=== PATIENT | male | born 1935 | race Caucasian/White ===

== ENCOUNTER → 2016-08-27 | Outpatient (REF) | payer OTHER ==
[2016-08-27 13:28] LABS: MEAN CORPUSCULAR HEMOGLOBIN 30.3 pg (27.0-33.0); MEAN CORPUSCULAR HGB CONC 32.6 g/dl (32.0-36.5); RED CELL DISTRIBUTION WIDTH 14.3 % (11.5-14.5); WHITE BLOOD COUNT 5.2 K/mm3 (4.0-10.0)
[2016-08-27 14:05] LABS: ALBUMIN 3.4 GM/DL (3.2-5.2); ALBUMIN/GLOBULIN RATIO 1.17 (1.00-1.93); ALKALINE PHOSPHATASE 89 U/L (45-117); ALT/SGPT 16 U/L (12-78); ANION GAP 5 MEQ/L (8-16); AST/SGOT 10 U/L (15-37); BILIRUBIN,TOTAL 0.6 MG/DL (0.2-1.0); BLOOD UREA NITROGEN 14 MG/DL (7-18); CALCIUM LEVEL 8.5 MG/DL (8.8-10.2); CARBON DIOXIDE LEVEL 32 MEQ/L (21-32); CHLORIDE LEVEL 106 MEQ/L (98-107); CHOLESTEROL LEVEL 119 MG/DL (<200); CREATININE FOR GFR 0.87 MG/DL (0.70-1.30); GLOMERULAR FILTRATION RATE > 60.0 (>35); GLUCOSE, FASTING 172 MG/DL (83-110); POTASSIUM SERUM 4.1 MEQ/L (3.5-5.1); SODIUM LEVEL 143 MEQ/L (136-145); TOTAL PROTEIN 6.3 GM/DL (6.4-8.2); TRIGLYCERIDES LEVEL 141 MG/DL (<150)
== END ==
LOC: M SFHCPLAZ 11:16
PROVIDERS: ATTEND Internal Medicine
DX: E11.9 Type 2 diabetes mellitus without complications (principal); E78.5 Hyperlipidemia, unspecified; Z79.4 Long term (current) use of insulin

== ENCOUNTER → 2017-02-21 | Outpatient (REF) | payer OTHER ==
[2017-02-21 13:31] LABS: ALBUMIN 3.1 GM/DL (3.2-5.2); ALBUMIN/GLOBULIN RATIO 1.03 (1.00-1.93); ALKALINE PHOSPHATASE 114 U/L (45-117); ALT/SGPT 23 U/L (12-78); ANION GAP 6 MEQ/L (8-16); AST/SGOT 11 U/L (15-37); BILIRUBIN,TOTAL 0.5 MG/DL (0.2-1.0); BLOOD UREA NITROGEN 13 MG/DL (7-18); CALCIUM LEVEL 8.5 MG/DL (8.8-10.2); CARBON DIOXIDE LEVEL 31 MEQ/L (21-32); CHLORIDE LEVEL 106 MEQ/L (98-107); CREATININE FOR GFR 0.88 MG/DL (0.70-1.30); GLOMERULAR FILTRATION RATE > 60.0 (>35); GLUCOSE, FASTING 75 MG/DL (83-110); POTASSIUM SERUM 3.7 MEQ/L (3.5-5.1); SODIUM LEVEL 143 MEQ/L (136-145); TOTAL PROTEIN 6.1 GM/DL (6.4-8.2)
== END ==
LOC: M SFHCPLAZ 09:19
PROVIDERS: ATTEND Internal Medicine
DX: E11.9 Type 2 diabetes mellitus without complications (principal)

== ENCOUNTER → 2017-03-01 | Outpatient (REF) | payer OTHER | LOC: M SFHCPLAZ 11:22 | PROVIDERS: ATTEND Internal Medicine | DX: R31.0 Gross hematuria (principal); Z23 Encounter for immunization | CPT/HCPCS: 81001; 87086; 90662; G0008; G0463 ==

== ENCOUNTER → 2017-03-20 | Outpatient (CLI) | payer OTHER ==
[2017-03-20 18:50] LABS: MICROSCOPIC INDICATED? MAN YES (NO)
[2017-03-20 19:44] LABS: ANION GAP 6 MEQ/L (8-16); BLOOD UREA NITROGEN 18 MG/DL (7-18); CALCIUM LEVEL 8.5 MG/DL (8.8-10.2); CARBON DIOXIDE LEVEL 29 MEQ/L (21-32); CHLORIDE LEVEL 109 MEQ/L (98-107); CREATININE FOR GFR 1.04 MG/DL (0.70-1.30); GLOMERULAR FILTRATION RATE > 60.0 (>35); GLUCOSE, FASTING 144 MG/DL (83-110); POTASSIUM SERUM 4.2 MEQ/L (3.5-5.1); SODIUM LEVEL 144 MEQ/L (136-145)
[2017-03-20 21:28] LABS: BACTERIA, URINE SMALL AMOUNT; RBC, URINE TNTC /hpf (0-3); SQUAMOUS EPITHELIAL CELL URINE SMALL AMOUNT /hpf (SMALL AMT)
[2017-03-20 21:30] LABS: TRANSITIONAL EPI CELLS, URINE LARGE AMOUNT /hpf
[2017-03-20 21:31] LABS: HYALINE CAST, URINE NONE SEEN /lpf (0-1); MICROSCOPIC EXAM PERFORMED; WBC, URINE 30-40 /hpf (0-3)
== END ==
LOC: M SMT 14:52
PROVIDERS: ATTEND Nurse Practitioner Women's Health
DX: R31.0 Gross hematuria (principal)
CPT/HCPCS: 36415; 51798; 80048; 81000; 87086; 88108; G0463

== ENCOUNTER → 2017-04-05 | Outpatient (REF) | payer OTHER | LOC: M SMT 15:24 | PROVIDERS: ATTEND Urology | DX: R31.0 Gross hematuria (principal) ==

== ENCOUNTER → 2017-04-17 | Outpatient (CLI) | payer OTHER ==
[~2017-04-17] MED LIST: ISOVUE-370 76% 100ML VIAL (Q9967) As Ordered ONE
--- NOTE | 2017-04-17 17:03 | REP ---
CT urogram without and with IV contrast: History: Hematuria. No comparison imaging. CT contrast dose: 100 mL of intravenous Isovue 370. CT findings: Preliminary digital school janitor radiograph shows a normal bowel gas pattern. There is a peripherally calcified large gallstone in the right upper quadrant. Sutures are seen in the right lower quadrant abdominal wall. Axial CT images demonstrate minimal bibasilar interstitial pulmonary fibrosis. No pleural effusion is seen. No adrenal lesion is observed. The liver and the spleen are normal in size homogeneous in texture. A large calcified gallstone is confirmed within the gallbladder. The stone measures 2.1 cm in greatest diameter. No pancreatic abnormality is observed. No retroperitoneal mass or adenopathy is seen. There is no evidence of hydronephrosis. There is a tiny 1 mm intrarenal calculus at the lower pole of the left kidney seen on noncontrast study. No other intrarenal nephrolithiasis is appreciated. No mass or cyst is seen. Normal caliber aorta is observed. There is a 3 mm calculus in the lumen of the urinary bladder to the left of midline on noncontrast study. Urinary bladder is otherwise unremarkable. No ureteral calculus is seen. There are dystrophic calcifications in the prostate. There is sigmoid colon diverticulosis without CT evidence of diverticulitis. The patient is status post prior appendectomy. No abdominal wall defect is seen. Bone window settings show degenerative changes in the thoracic and lumbar spine segments. No bony destructive lesion is seen. Delayed scanning shows no filling defect in the collecting system or ureters on either side. There is however evidence of a left posterior bladder mass measuring approximately 3-4 cm in size. Impression: 1. Tiny 1 mm intrarenal calculus lower pole left kidney. 2. 3 mm bladder calculus. 3. No hydronephrosis. No urinary tract mass lesion seen. 4. 3.8 cm left posterior bladder mass. 5. Cholelithiasis. 6. Left colonic diverticulosis. Signed by Cristian Gee MD 04/18/2017 10:56 A
== END ==
LOC: M RAD 13:45
PROVIDERS: ATTEND Nurse Practitioner Women's Health
DX: N20.0 Calculus of kidney (principal); N21.0 Calculus in bladder; N20.1 Calculus of ureter; K57.30 Diverticulosis of large intestine without perforation or abscess without bleeding; R93.41 Abnormal radiologic findings on diagnostic imaging of renal pelvis, ureter, or bladder
CPT/HCPCS: 74178; Q9967

== ENCOUNTER → 2017-05-17 | Outpatient (REF) | payer OTHER | LOC: M SFHCPLAZ 08:34 | DX: Z01.818 Encounter for other preprocedural examination (principal); D49.4 Neoplasm of unspecified behavior of bladder; R31.0 Gross hematuria; E11.9 Type 2 diabetes mellitus without complications; Z79.4 Long term (current) use of insulin; Z79.899 Other long term (current) drug therapy | CPT/HCPCS: 87086 ==

== ENCOUNTER → 2017-05-21 | Outpatient (CLI) | payer OTHER ==
[2017-05-21 17:32] LABS: HEMATOCRIT 38.9 % (42.0-52.0); HEMOGLOBIN 12.3 g/dl (14.0-18.0); MEAN CORPUSCULAR HEMOGLOBIN 27.6 pg (27.0-33.0); MEAN CORPUSCULAR HGB CONC 31.6 g/dl (32.0-36.5); MEAN CORPUSCULAR VOLUME 87.4 fl (80.0-96.0); PLATELET COUNT, AUTOMATED 333 10^3/uL (150-450); RED BLOOD COUNT 4.45 10^6/uL (4.30-6.10); RED CELL DISTRIBUTION WIDTH 15.4 % (11.5-14.5); WHITE BLOOD COUNT 5.7 10^3/uL (4.0-10.0)
[2017-05-21 17:44] LABS: ANION GAP 6 MEQ/L (8-16); BLOOD UREA NITROGEN 17 MG/DL (7-18); CALCIUM LEVEL 8.5 MG/DL (8.8-10.2); CARBON DIOXIDE LEVEL 30 MEQ/L (21-32); CHLORIDE LEVEL 107 MEQ/L (98-107); CREATININE FOR GFR 1.17 MG/DL (0.70-1.30); GLOMERULAR FILTRATION RATE > 60.0 (>35); GLUCOSE, FASTING 174 MG/DL (83-110); SODIUM LEVEL 143 MEQ/L (136-145)
[2017-05-21 17:48] LABS: INR 1.07
[2017-05-21 19:05] LABS: APPEARANCE, URINE CLOUDY (CLEAR); BACTERIA, URINE AUTO NEGATIVE (NEGATIVE); BILIRUBIN, URINE AUTO NEGATIVE (NEGATIVE); BLOOD, URINE BLOOD 3+ (NEGATIVE); COLOR, URINE RED (YELLOW); GLUCOSE, URINE (UA) AUTO NEGATIVE (NEGATIVE); KETONE, URINE AUTO NEGATIVE (NEGATIVE); LEUKOCYTE ESTERASE, URINE AUTO 2+ (NEGATIVE); MUCUS, URINE SMALL (NEGATIVE); NITRITE, URINE AUTO NEGATIVE (NEGATIVE); PROTEIN, URINE AUTO 2+ mg/dL (NEGATIVE); RBC, URINE AUTO TNTC /HPF (0-3); SQUAMOUS EPITHELIAL CELL UR AU 2 /HPF (0-6); UROBILINOGEN, URINE AUTO 0.2 mg/dL (0.0-2.0); WBC, URINE AUTO TNTC /HPF (0-3); YEAST LIKE CELL URINE AUTO MODERATE
== END ==
LOC: M SMT 11:39
DX: Z01.818 Encounter for other preprocedural examination (principal); D49.4 Neoplasm of unspecified behavior of bladder; R31.0 Gross hematuria
CPT/HCPCS: 80048

== ENCOUNTER 2017-05-23 08:38 | Day surgery (SDC) | payer OTHER ==
[2017-05-23] MEDS: LR 1,000 ML IV (09:50)
[2017-05-23 10:15] LABS: BEDSIDE GLUCOSE 132 MG/DL (83-110)
[2017-05-23] MEDS ORDERED: fentaNYL 250 MCG/5 ML INJECTION (J3010) As Ordered (11:25)
[2017-05-23] MEDS ORDERED: ROCURONIUM BROMIDE 50 MG/5 ML VIAL As Ordered (11:25)
[2017-05-23] MEDS ORDERED: ONDANSETRON 4MG/2ML VIAL (J2405) As Ordered (11:25)
[2017-05-23] MEDS ORDERED: MIDAZOLAM INJ 2 MG/2 ML VIAL (J2250) As Ordered (11:25)
[2017-05-23] MEDS ORDERED: PROPOFOL 200 MG/20 ML VIAL As Ordered (11:25)
[2017-05-23] MEDS ORDERED: LIDOCAINE 2% INJ 100 MG/5 ML SDV (FOR ANES.) As Ordered (11:25)
[2017-05-23] MEDS ORDERED: ePHEDrine INJ 50 MG/ML VIAL As Ordered (11:26)
[2017-05-23] MEDS ORDERED: LABETALOL HCL 100 MG/20 ML VIAL As Ordered (11:34)
[2017-05-23] MEDS ORDERED: NEOSTIGMINE 10 MG/10 ML VIAL (J2710) As Ordered (11:40)
[2017-05-23] MEDS ORDERED: GLYCOPYRROLATE INJ 0.2 MG/ML 2 ML VIAL As Ordered ×2 (11:40)
[2017-05-23] MEDS: CONRAY-60 60% 50ML VIAL (Q9961) As Ordered (12:12)
[2017-05-23] MEDS ORDERED: LR 1,000 ML IV (13:00)
[2017-05-23] MEDS ORDERED: ACETAMINOPHEN 650MG ER TAB (TYLENOL ARTHRITIS) PO (13:00)
[2017-05-23] MEDS ORDERED: ONDANSETRON 4MG/2ML VIAL (J2405) IV (13:00)
[2017-05-23] MEDS: PERCOCET 5MG/325MG TAB PO ×2 (13:03→13:53)
[2017-05-23] MEDS: fentaNYL 100 MCG/2 ML INJECTION (J3010) IV ×4 (13:25→13:53)
[2017-05-23 15:59] LABS: BEDSIDE GLUCOSE 145 MG/DL (83-110)
[2017-05-23] MEDS ORDERED: CIPROFLOXACIN 500 MG TAB PO (18:00)
== END 2017-05-23 16:00 | disposition home or self-care (01) ==
LOC: M SDC 08:38
DX: C67.2 Malignant neoplasm of lateral wall of bladder (principal); C67.4 Malignant neoplasm of posterior wall of bladder; E10.9 Type 1 diabetes mellitus without complications; E78.00 Pure hypercholesterolemia, unspecified; M54.9 Dorsalgia, unspecified; Z79.899 Other long term (current) drug therapy; Z79.82 Long term (current) use of aspirin
CPT/HCPCS: 52235

== ENCOUNTER → 2017-06-10 | Outpatient (REF) | payer OTHER ==
[2017-06-10 15:48] LABS: APPEARANCE, URINE CLOUDY (CLEAR); BACTERIA, URINE AUTO 1+ (NEGATIVE); BILIRUBIN, URINE AUTO NEGATIVE (NEGATIVE); BLOOD, URINE BLOOD 3+ (NEGATIVE); CALCIUM OXALATE CRYSTALS LARGE; COLOR, URINE YELLOW (YELLOW); GLUCOSE, URINE (UA) AUTO NEGATIVE (NEGATIVE); KETONE, URINE AUTO NEGATIVE (NEGATIVE); LEUKOCYTE ESTERASE, URINE AUTO 3+ (NEGATIVE); MUCUS, URINE SMALL (NEGATIVE); NITRITE, URINE AUTO POSITIVE (NEGATIVE); PROTEIN, URINE AUTO 2+ mg/dL (NEGATIVE); RBC, URINE AUTO TNTC /HPF (0-3); SPECIFIC GRAVITY URINE AUTO 1.016 (1.002-1.035); SQUAMOUS EPITHELIAL CELL UR AU 1 /HPF (0-6); UROBILINOGEN, URINE AUTO 0.2 mg/dL (0.0-2.0); WBC, URINE AUTO TNTC /HPF (0-3); YEAST LIKE CELL URINE AUTO MODERATE
== END ==
LOC: M SMT 14:46
DX: C67.2 Malignant neoplasm of lateral wall of bladder (principal)
CPT/HCPCS: 81001

== ENCOUNTER → 2017-06-17 | Outpatient (CLI) | payer OTHER | LOC: M RAD 09:39 | DX: C67.2 Malignant neoplasm of lateral wall of bladder (principal) | CPT/HCPCS: 78306 ==

== ENCOUNTER → 2017-06-28 | Outpatient (CLI) | payer OTHER ==
[2017-06-28 17:47] LABS: HEMATOCRIT 38.3 % (42.0-52.0); HEMOGLOBIN 11.8 g/dl (14.0-18.0); MEAN CORPUSCULAR HEMOGLOBIN 26.3 pg (27.0-33.0); MEAN CORPUSCULAR HGB CONC 30.8 g/dl (32.0-36.5); MEAN CORPUSCULAR VOLUME 85.3 fl (80.0-96.0); PLATELET COUNT, AUTOMATED 231 10^3/uL (150-450); RED BLOOD COUNT 4.49 10^6/uL (4.30-6.10); WHITE BLOOD COUNT 6.3 10^3/uL (4.0-10.0)
[2017-06-28 17:48] LABS: ANION GAP 8 MEQ/L (8-16); BLOOD UREA NITROGEN 14 MG/DL (7-18); CALCIUM LEVEL 8.8 MG/DL (8.8-10.2); CARBON DIOXIDE LEVEL 29 MEQ/L (21-32); CHLORIDE LEVEL 107 MEQ/L (98-107); CREATININE FOR GFR 1.02 MG/DL (0.70-1.30); GLOMERULAR FILTRATION RATE > 60.0 (>35); GLUCOSE, FASTING 143 MG/DL (70-100); POTASSIUM SERUM 4.1 MEQ/L (3.5-5.1); SODIUM LEVEL 144 MEQ/L (136-145)
[2017-06-28 17:59] LABS: INR 1.03; PROTHROMBIN TIME 13.6 SECONDS (12.4-14.5)
[2017-06-28 18:00] LABS: PARTIAL THROMBOPLASTIN TIME 32.6 SECONDS (26.8-37.9)
== END ==
LOC: M SMT 14:06
DX: Z01.812 Encounter for preprocedural laboratory examination (principal); C67.2 Malignant neoplasm of lateral wall of bladder
CPT/HCPCS: 80048

== ENCOUNTER 2017-07-02 05:43 | Inpatient (IN) | payer OTHER ==
[2017-07-02] MEDS ORDERED: LIDOCAINE 1% MDV 20ML VIAL SQ (06:00)
[2017-07-02] MEDS: LR 1,000 ML IV ×2 (06:30→16:45)
[2017-07-02 06:38] LABS: BEDSIDE GLUCOSE 97 MG/DL (83-110)
[2017-07-02] MEDS: cefoTEtan DISODIUM 2 GM in D5W MINI-BAG PLUS 50 ML IV ×2 (07:35→20:49)
[2017-07-02] MEDS ORDERED: LIDOCAINE 2% INJ 100 MG/5 ML SDV (FOR ANES.) As Ordered (08:04)
[2017-07-02] MEDS ORDERED: METOCLOPRAMIDE INJ 10MG/2ML VIAL (J2765) As Ordered (08:04)
[2017-07-02] MEDS ORDERED: PROPOFOL 200 MG/20 ML VIAL As Ordered (08:04)
[2017-07-02] MEDS ORDERED: SEVOFLURANE INHAL SOLN 250 ML BTL As Ordered (08:04)
[2017-07-02] MEDS ORDERED: ROCURONIUM BROMIDE 50 MG/5 ML VIAL As Ordered ×3 (08:04→11:06)
[2017-07-02] MEDS ORDERED: MIDAZOLAM INJ 2 MG/2 ML VIAL (J2250) As Ordered (08:04)
[2017-07-02] MEDS ORDERED: fentaNYL 100 MCG/2 ML INJECTION (J3010) As Ordered ×3 (08:04→16:06)
[2017-07-02] MEDS ORDERED: REMIFENTANIL 1MG 3ML VIAL As Ordered ×5 (08:04→12:49)
[2017-07-02] MEDS: ATORVASTATIN 20 MG TAB PO (09:00)
[2017-07-02] MEDS ORDERED: ePHEDrine INJ 50 MG/ML VIAL As Ordered (09:40)
[2017-07-02] MEDS ORDERED: DESFLURANE 240 ML INHALANT As Ordered (12:21)
[2017-07-02] MEDS ORDERED: ONDANSETRON 4MG/2ML VIAL (J2405) As Ordered (14:46)
[2017-07-02] MEDS ORDERED: GLYCOPYRROLATE INJ 0.2 MG/ML 2 ML VIAL As Ordered ×2 (14:47)
[2017-07-02] MEDS ORDERED: NEOSTIGMINE 10 MG/10 ML VIAL (J2710) As Ordered (14:47)
[2017-07-02] MEDS ORDERED: ESMOLOL INJ 100MG/10ML VIAL As Ordered (16:04)
[2017-07-02] MEDS ORDERED: LEVALBUTEROL 1.25 MG/0.5 ML CONCENTRATE NEB As Ordered (16:05)
[2017-07-02] MEDS: fentaNYL 100 MCG/2 ML INJECTION (J3010) IV ×4 (16:11→16:30)
[2017-07-02 16:18] LABS: BEDSIDE GLUCOSE 187 MG/DL (83-110)
[2017-07-02] MEDS ORDERED: MORPHINE 10 MG/ML 1ML VIAL (J2270) As Ordered (16:18)
[2017-07-02] MEDS: MORPHINE 4 MG/ML 1ML VIAL (J2270) IV ×5 (16:23→16:50)
[2017-07-02 16:28] LABS: HEMATOCRIT 34.8 % (42.0-52.0); MEAN CORPUSCULAR HEMOGLOBIN 27.2 pg (27.0-33.0); MEAN CORPUSCULAR HGB CONC 31.6 g/dl (32.0-36.5); MEAN CORPUSCULAR VOLUME 86.1 fl (80.0-96.0); PLATELET COUNT, AUTOMATED 265 10^3/uL (150-450); RED BLOOD COUNT 4.04 10^6/uL (4.30-6.10); RED CELL DISTRIBUTION WIDTH 15.9 % (11.5-14.5); WHITE BLOOD COUNT 11.4 10^3/uL (4.0-10.0)
[2017-07-02 16:29] LABS: ABG BASE EXCESS -6.6 (-2.0-2.0); ABG HCO3 20.5 MEQ/L (22.0-26.0); ABG O2 SATURATION 95.9 % (95.0-99.0); ABG PARTIAL PRESSURE CO2 47.4 mmHg (35.0-45.0); ABG PARTIAL PRESSURE O2 90.1 mmHg (75.0-100.0); ABG STANDARD HCO3 19.1 MEQ/L (22.0-26.0); ABG pH (ARTERIAL) 7.254 UNITS (7.350-7.450)
[2017-07-02] MEDS ORDERED: HYDROmorphone HCL 1 MG/ML SYRINGE (J1170) As Ordered (16:37)
[2017-07-02] MEDS ORDERED: MEPERIDINE INJ 25 MG/ML VIAL (J2175) IV (16:45)
[2017-07-02] MEDS: HYDROmorphone HCL 1 MG/ML SYRINGE (J1170) IV ×5 (16:45→17:14)
[2017-07-02] MEDS ORDERED: PERCOCET 5MG/325MG TAB PO (16:45)
[2017-07-02] MEDS ORDERED: METOCLOPRAMIDE INJ 10MG/2ML VIAL (J2765) IV (16:45)
[2017-07-02] MEDS ORDERED: ONDANSETRON 4MG/2ML VIAL (J2405) IV (16:45)
[2017-07-02 16:47] LABS: ANION GAP 10 MEQ/L (8-16); BLOOD UREA NITROGEN 13 MG/DL (7-18); CALCIUM LEVEL 8.1 MG/DL (8.8-10.2); CARBON DIOXIDE LEVEL 27 MEQ/L (21-32); CHLORIDE LEVEL 107 MEQ/L (98-107); CREATININE FOR GFR 1.68 MG/DL (0.70-1.30); GLOMERULAR FILTRATION RATE 41.9 (>35); GLUCOSE, FASTING 184 MG/DL (70-100); MAGNESIUM LEVEL 1.7 MG/DL (1.8-2.4); PHOSPHORUS LEVEL 4.2 MG/DL (2.5-4.9); POTASSIUM SERUM 3.8 MEQ/L (3.5-5.1); SODIUM LEVEL 144 MEQ/L (136-145)
[2017-07-02] MEDS ORDERED: MAGNESIUM SULFATE 1 GM/100 ML D5W BAG (10MG/ML) (J3475) As Ordered (16:51)
[2017-07-02] MEDS: MAG SULF 1GM/100ML (MAG RUN) 100 ML IV ×2 (17:00→17:59)
[2017-07-02] MEDS: KETOROLAC 30 MG/ML VIAL (J1885) IV (17:05)
[2017-07-02] MEDS: LABETALOL HCL 100 MG/20 ML VIAL IV (17:20)
[2017-07-02] MEDS ORDERED: HumuLIN R (REGULAR) INSULIN (NovoLIN R) **100U/ML** PER UNIT SC ×2 (17:30→21:00)
[2017-07-02] MEDS ORDERED: GLUCAGON FOR INJ 1 MG VIAL (J1610) SC (18:00)
[2017-07-02] MEDS ORDERED: GLUCOSE 4 GM CHEW TABLET PO (18:00)
[2017-07-02] MEDS: NS 1,000 ML IV (18:49)
[2017-07-02] MEDS: METOCLOPRAMIDE INJ 10MG/2ML VIAL (J2765) IV (20:49)
[2017-07-02] MEDS: PANTOPRAZOLE 40MG INJ (PROTONIX) (C9113) IV (20:50)
[2017-07-02] MEDS: HumaLOG INSULIN (NovoLOG) PER UNIT SC (21:00)
[2017-07-02 21:09] LABS: BEDSIDE GLUCOSE 195 MG/DL (83-110)
[2017-07-02] MEDS: ACETAMINOPHEN 650MG ER TAB (TYLENOL ARTHRITIS) PO (23:06)
[2017-07-03] MEDS: KETOROLAC 30 MG/ML VIAL (J1885) IV (01:25)
[2017-07-03] MEDS: METOCLOPRAMIDE INJ 10MG/2ML VIAL (J2765) IV ×4 (01:25→17:56)
[2017-07-03] MEDS: NS 1,000 ML IV ×2 (01:26→09:19)
[2017-07-03] MEDS: ACETAMINOPHEN 650MG ER TAB (TYLENOL ARTHRITIS) PO ×3 (05:03→21:06)
[2017-07-03 06:11] LABS: HEMATOCRIT 31.8 % (42.0-52.0); MEAN CORPUSCULAR HEMOGLOBIN 26.6 pg (27.0-33.0); MEAN CORPUSCULAR HGB CONC 31.4 g/dl (32.0-36.5); MEAN CORPUSCULAR VOLUME 84.6 fl (80.0-96.0); PLATELET COUNT, AUTOMATED 252 10^3/uL (150-450); RED BLOOD COUNT 3.76 10^6/uL (4.30-6.10); RED CELL DISTRIBUTION WIDTH 16.1 % (11.5-14.5); WHITE BLOOD COUNT 9.8 10^3/uL (4.0-10.0)
[2017-07-03 06:19] LABS: BEDSIDE GLUCOSE 217 MG/DL (83-110)
[2017-07-03 06:28] LABS: ALBUMIN 2.4 GM/DL (3.2-5.2); ANION GAP 6 MEQ/L (8-16); BLOOD UREA NITROGEN 18 MG/DL (7-18); CALCIUM LEVEL 7.8 MG/DL (8.8-10.2); CARBON DIOXIDE LEVEL 29 MEQ/L (21-32); CHLORIDE LEVEL 108 MEQ/L (98-107); CREATININE FOR GFR 2.06 MG/DL (0.70-1.30); GLOMERULAR FILTRATION RATE 33.1 (>35); GLUCOSE, FASTING 203 MG/DL (70-100); POTASSIUM SERUM 3.8 MEQ/L (3.5-5.1); SODIUM LEVEL 143 MEQ/L (136-145)
[2017-07-03] MEDS: HumaLOG INSULIN (NovoLOG) PER UNIT SC ×4 (07:30→20:36)
[2017-07-03 08:36] LABS: MAGNESIUM LEVEL 2.2 MG/DL (1.8-2.4)
[2017-07-03] MEDS: LEVEMIR (INSULIN DETEMIR) 1 UNITS/0.01ML SC (09:00)
[2017-07-03] MEDS: PERCOCET 5MG/325MG TAB PO (09:19)
[2017-07-03] MEDS: TAMSULOSIN 0.4 MG CAP PO (09:19)
[2017-07-03] MEDS: cefoTEtan DISODIUM 2 GM in D5W MINI-BAG PLUS 50 ML IV ×2 (09:19→20:29)
[2017-07-03 10:59] LABS: ABG BASE EXCESS 0.1 (-2.0-2.0); ABG HCO3 25.3 MEQ/L (22.0-26.0); ABG O2 SATURATION 93.6 % (95.0-99.0); ABG PARTIAL PRESSURE CO2 43.8 mmHg (35.0-45.0); ABG PARTIAL PRESSURE O2 69.8 mmHg (75.0-100.0); ABG STANDARD HCO3 24.5 MEQ/L (22.0-26.0); ABG TOTAL CO2 26.7 MEQ/L (23.0-31.0)
[2017-07-03] MEDS: MORPHINE 4 MG/ML 1ML VIAL (J2270) IV ×3 (11:57→23:12)
[2017-07-03 12:18] LABS: BEDSIDE GLUCOSE 249 MG/DL (83-110)
[2017-07-03 12:24] LABS: BEDSIDE GLUCOSE 183 MG/DL (83-110)
[2017-07-03 12:24] LABS: BEDSIDE GLUCOSE 100 MG/DL (83-110)
[2017-07-03 12:24] LABS: BEDSIDE GLUCOSE 190 MG/DL (83-110)
[2017-07-03] MEDS: KCL 20MEQ in NS 1000ML 1,000 ML IV (17:55)
[2017-07-03] MEDS: PANTOPRAZOLE 40MG INJ (PROTONIX) (C9113) IV (17:55)
[2017-07-03 17:58] LABS: BEDSIDE GLUCOSE 161 MG/DL (83-110)
[2017-07-03 20:44] LABS: BEDSIDE GLUCOSE 137 MG/DL (83-110)
[2017-07-04] MEDS: MORPHINE 4 MG/ML 1ML VIAL (J2270) IV ×2 (03:22→21:04)
[2017-07-04] MEDS: ACETAMINOPHEN 650MG ER TAB (TYLENOL ARTHRITIS) PO ×3 (05:08→21:34)
[2017-07-04] MEDS: METOCLOPRAMIDE INJ 10MG/2ML VIAL (J2765) IV ×4 (05:08→18:11)
[2017-07-04] MEDS: KCL 20MEQ in NS 1000ML 1,000 ML IV ×2 (05:08→06:43)
[2017-07-04 06:32] LABS: HEMATOCRIT 30.3 % (42.0-52.0); HEMOGLOBIN 9.6 g/dl (14.0-18.0); MEAN CORPUSCULAR HEMOGLOBIN 26.7 pg (27.0-33.0); MEAN CORPUSCULAR HGB CONC 31.7 g/dl (32.0-36.5); MEAN CORPUSCULAR VOLUME 84.2 fl (80.0-96.0); PLATELET COUNT, AUTOMATED 248 10^3/uL (150-450); RED CELL DISTRIBUTION WIDTH 16.2 % (11.5-14.5); WHITE BLOOD COUNT 9.9 10^3/uL (4.0-10.0)
[2017-07-04 06:39] LABS: ALBUMIN 2.1 GM/DL (3.2-5.2); ANION GAP 8 MEQ/L (8-16); BLOOD UREA NITROGEN 23 MG/DL (7-18); CALCIUM LEVEL 7.7 MG/DL (8.8-10.2); CARBON DIOXIDE LEVEL 25 MEQ/L (21-32); CHLORIDE LEVEL 108 MEQ/L (98-107); CREATININE FOR GFR 2.34 MG/DL (0.70-1.30); GLOMERULAR FILTRATION RATE 28.6 (>35); GLUCOSE, FASTING 180 MG/DL (70-100); PHOSPHORUS LEVEL 2.9 MG/DL (2.5-4.9); POTASSIUM SERUM 3.8 MEQ/L (3.5-5.1); SODIUM LEVEL 141 MEQ/L (136-145)
[2017-07-04] MEDS: LEVEMIR (INSULIN DETEMIR) 1 UNITS/0.01ML SC (08:27)
[2017-07-04] MEDS: cefoTEtan DISODIUM 2 GM in D5W MINI-BAG PLUS 50 ML IV ×2 (08:33→21:05)
[2017-07-04] MEDS: HumaLOG INSULIN (NovoLOG) PER UNIT SC ×4 (08:34→21:00)
[2017-07-04] MEDS: ATORVASTATIN 20 MG TAB PO (08:34)
[2017-07-04] MEDS: FUROSEMIDE 40 MG/4 ML VIAL (J1940) IV (08:34)
[2017-07-04 17:54] LABS: BEDSIDE GLUCOSE 213 MG/DL (83-110)
[2017-07-04 17:54] LABS: BEDSIDE GLUCOSE 233 MG/DL (83-110)
[2017-07-04] MEDS: PANTOPRAZOLE 40MG INJ (PROTONIX) (C9113) IV (18:11)
[2017-07-04 21:47] LABS: BEDSIDE GLUCOSE 224 MG/DL (83-110)
[2017-07-05] MEDS: METOCLOPRAMIDE INJ 10MG/2ML VIAL (J2765) IV ×4 (00:42→18:04)
[2017-07-05] MEDS: MORPHINE 4 MG/ML 1ML VIAL (J2270) IV ×2 (03:50→06:24)
[2017-07-05 05:17] LABS: HEMATOCRIT 31.8 % (42.0-52.0); HEMOGLOBIN 10.3 g/dl (14.0-18.0); MEAN CORPUSCULAR HGB CONC 32.4 g/dl (32.0-36.5); MEAN CORPUSCULAR VOLUME 83.2 fl (80.0-96.0); PLATELET COUNT, AUTOMATED 270 10^3/uL (150-450); RED BLOOD COUNT 3.82 10^6/uL (4.30-6.10); RED CELL DISTRIBUTION WIDTH 16.1 % (11.5-14.5); WHITE BLOOD COUNT 10.2 10^3/uL (4.0-10.0)
[2017-07-05] MEDS: ACETAMINOPHEN 650MG ER TAB (TYLENOL ARTHRITIS) PO ×3 (05:27→22:31)
[2017-07-05 05:39] LABS: ANION GAP 8 MEQ/L (8-16); BLOOD UREA NITROGEN 22 MG/DL (7-18); CALCIUM LEVEL 8.2 MG/DL (8.8-10.2); CARBON DIOXIDE LEVEL 28 MEQ/L (21-32); CHLORIDE LEVEL 103 MEQ/L (98-107); CREATININE FOR GFR 2.26 MG/DL (0.70-1.30); GLOMERULAR FILTRATION RATE 29.7 (>35); GLUCOSE, FASTING 225 MG/DL (70-100); PHOSPHORUS LEVEL 2.1 MG/DL (2.5-4.9); POTASSIUM SERUM 3.7 MEQ/L (3.5-5.1); SODIUM LEVEL 139 MEQ/L (136-145)
[2017-07-05] MEDS: FUROSEMIDE 40 MG/4 ML VIAL (J1940) IV (06:23)
[2017-07-05] MEDS: HumaLOG INSULIN (NovoLOG) PER UNIT SC ×4 (07:30→21:00)
[2017-07-05] MEDS ORDERED: PERCOCET 5MG/325MG TAB PO (08:15)
[2017-07-05 09:44] LABS: BEDSIDE GLUCOSE 231 MG/DL (83-110)
[2017-07-05] MEDS: cefoTEtan DISODIUM 2 GM in D5W MINI-BAG PLUS 50 ML IV (09:52)
[2017-07-05] MEDS: LEVEMIR (INSULIN DETEMIR) 1 UNITS/0.01ML SC (09:53)
[2017-07-05 12:12] LABS: BEDSIDE GLUCOSE 256 MG/DL (83-110)
[2017-07-05] MEDS: LevoFLOXacin 500 MG TABLET PO (13:38)
[2017-07-05 14:29] LABS: SOURCE, BODY FLUID CREATININE OTHER
[2017-07-05 18:04] LABS: BEDSIDE GLUCOSE 217 MG/DL (83-110)
[2017-07-05] MEDS: PANTOPRAZOLE 40MG INJ (PROTONIX) (C9113) IV (18:04)
[2017-07-05 22:45] LABS: BEDSIDE GLUCOSE 224 MG/DL (83-110)
[2017-07-06] MEDS: METOCLOPRAMIDE INJ 10MG/2ML VIAL (J2765) IV ×5 (00:23→23:16)
[2017-07-06] MEDS: PERCOCET 5MG/325MG TAB PO (00:43)
[2017-07-06 05:37] LABS: HEMATOCRIT 34.2 % (42.0-52.0); MEAN CORPUSCULAR HEMOGLOBIN 26.6 pg (27.0-33.0); MEAN CORPUSCULAR HGB CONC 32.2 g/dl (32.0-36.5); MEAN CORPUSCULAR VOLUME 82.6 fl (80.0-96.0); PLATELET COUNT, AUTOMATED 332 10^3/uL (150-450); RED BLOOD COUNT 4.14 10^6/uL (4.30-6.10); WHITE BLOOD COUNT 10.5 10^3/uL (4.0-10.0)
[2017-07-06 05:53] LABS: ALBUMIN 1.9 GM/DL (3.2-5.2); ANION GAP 8 MEQ/L (8-16); BLOOD UREA NITROGEN 30 MG/DL (7-18); CALCIUM LEVEL 8.6 MG/DL (8.8-10.2); CARBON DIOXIDE LEVEL 28 MEQ/L (21-32); CHLORIDE LEVEL 102 MEQ/L (98-107); CREATININE FOR GFR 2.57 MG/DL (0.70-1.30); GLOMERULAR FILTRATION RATE 25.6 (>35); GLUCOSE, FASTING 267 MG/DL (70-100); PHOSPHORUS LEVEL 2.5 MG/DL (2.5-4.9); POTASSIUM SERUM 4.3 MEQ/L (3.5-5.1); SODIUM LEVEL 138 MEQ/L (136-145)
[2017-07-06] MEDS: ACETAMINOPHEN 650MG ER TAB (TYLENOL ARTHRITIS) PO ×3 (06:07→23:16)
[2017-07-06] MEDS: LevoFLOXacin 250 MG TABLET PO (06:07)
[2017-07-06] MEDS: FUROSEMIDE 40 MG/4 ML VIAL (J1940) IV (09:51)
[2017-07-06] MEDS: ATORVASTATIN 20 MG TAB PO (09:52)
[2017-07-06] MEDS: HumaLOG INSULIN (NovoLOG) PER UNIT SC ×4 (09:52→20:54)
[2017-07-06] MEDS: LEVEMIR (INSULIN DETEMIR) 1 UNITS/0.01ML SC (09:53)
[2017-07-06 13:57] LABS: ANION GAP 9 MEQ/L (8-16); BLOOD UREA NITROGEN 30 MG/DL (7-18); CARBON DIOXIDE LEVEL 29 MEQ/L (21-32); CHLORIDE LEVEL 103 MEQ/L (98-107); CREATININE FOR GFR 2.18 MG/DL (0.70-1.30); GLUCOSE, FASTING 272 MG/DL (70-100); POTASSIUM SERUM 3.9 MEQ/L (3.5-5.1); SODIUM LEVEL 141 MEQ/L (136-145)
[2017-07-06 13:58] LABS: CALCIUM LEVEL 8.5 MG/DL (8.8-10.2); MAGNESIUM LEVEL 1.8 MG/DL (1.8-2.4); PHOSPHORUS LEVEL 2.3 MG/DL (2.5-4.9)
[2017-07-06 14:01] LABS: CREATININE BF 2.6 MG/DL (NOT ESTABLISHED); SOURCE, BODY FLUID CREATININE OTHER
[2017-07-06 17:11] LABS: BEDSIDE GLUCOSE 271 MG/DL (83-110)
[2017-07-06 17:11] LABS: BEDSIDE GLUCOSE 267 MG/DL (83-110)
[2017-07-06] MEDS: PANTOPRAZOLE 40MG INJ (PROTONIX) (C9113) IV (17:51)
[2017-07-06 21:02] LABS: BEDSIDE GLUCOSE 150 MG/DL (83-110)
[2017-07-07] MEDS: PERCOCET 5MG/325MG TAB PO (04:02)
[2017-07-07 05:11] LABS: HEMATOCRIT 35.1 % (42.0-52.0); HEMOGLOBIN 11.5 g/dl (14.0-18.0); MEAN CORPUSCULAR HEMOGLOBIN 26.7 pg (27.0-33.0); MEAN CORPUSCULAR HGB CONC 32.8 g/dl (32.0-36.5); MEAN CORPUSCULAR VOLUME 81.6 fl (80.0-96.0); PLATELET COUNT, AUTOMATED 404 10^3/uL (150-450); WHITE BLOOD COUNT 10.6 10^3/uL (4.0-10.0)
[2017-07-07 05:30] LABS: ALBUMIN 2.1 GM/DL (3.2-5.2); ANION GAP 8 MEQ/L (8-16); BLOOD UREA NITROGEN 36 MG/DL (7-18); CALCIUM LEVEL 8.7 MG/DL (8.8-10.2); CARBON DIOXIDE LEVEL 31 MEQ/L (21-32); CHLORIDE LEVEL 101 MEQ/L (98-107); CREATININE FOR GFR 2.58 MG/DL (0.70-1.30); GLOMERULAR FILTRATION RATE 25.5 (>35); GLUCOSE, FASTING 230 MG/DL (70-100); PHOSPHORUS LEVEL 2.3 MG/DL (2.5-4.9); POTASSIUM SERUM 4.2 MEQ/L (3.5-5.1); SODIUM LEVEL 140 MEQ/L (136-145)
[2017-07-07] MEDS: ACETAMINOPHEN 650MG ER TAB (TYLENOL ARTHRITIS) PO (06:00)
[2017-07-07] MEDS: METOCLOPRAMIDE INJ 10MG/2ML VIAL (J2765) IV ×2 (06:04→12:37)
[2017-07-07] MEDS: LevoFLOXacin 250 MG TABLET PO (06:04)
[2017-07-07] MEDS: LEVEMIR (INSULIN DETEMIR) 1 UNITS/0.01ML SC (09:00)
[2017-07-07] MEDS: HumaLOG INSULIN (NovoLOG) PER UNIT SC ×4 (09:47→20:50)
[2017-07-07] MEDS: BISACODYL 10 MG SUPP PR (10:31)
[2017-07-07] MEDS: MIRALAX *UNIT DOSE* 17GM PACKET PO (12:37)
[2017-07-07 12:38] LABS: BEDSIDE GLUCOSE 244 MG/DL (83-110)
[2017-07-07 17:10] LABS: BEDSIDE GLUCOSE 210 MG/DL (83-110)
[2017-07-07] MEDS: PANTOPRAZOLE 40MG INJ (PROTONIX) (C9113) IV (17:34)
[2017-07-07] MEDS: ONDANSETRON 4MG/2ML VIAL (J2405) IV (20:51)
[2017-07-07 20:58] LABS: BEDSIDE GLUCOSE 136 MG/DL (83-110)
[2017-07-07] MEDS ORDERED: ACETAMINOPHEN 650MG ER TAB (TYLENOL ARTHRITIS) PO (22:00)
[2017-07-08 04:42] LABS: HEMATOCRIT 34.2 % (42.0-52.0); HEMOGLOBIN 11.2 g/dl (14.0-18.0); MEAN CORPUSCULAR HEMOGLOBIN 26.4 pg (27.0-33.0); MEAN CORPUSCULAR HGB CONC 32.7 g/dl (32.0-36.5); MEAN CORPUSCULAR VOLUME 80.5 fl (80.0-96.0); PLATELET COUNT, AUTOMATED 448 10^3/uL (150-450); RED BLOOD COUNT 4.25 10^6/uL (4.30-6.10); RED CELL DISTRIBUTION WIDTH 15.9 % (11.5-14.5); WHITE BLOOD COUNT 10.5 10^3/uL (4.0-10.0)
[2017-07-08 04:55] LABS: ALBUMIN 1.9 GM/DL (3.2-5.2); ANION GAP 7 MEQ/L (8-16); BLOOD UREA NITROGEN 39 MG/DL (7-18); CALCIUM LEVEL 8.6 MG/DL (8.8-10.2); CARBON DIOXIDE LEVEL 32 MEQ/L (21-32); CHLORIDE LEVEL 102 MEQ/L (98-107); CREATININE FOR GFR 1.88 MG/DL (0.70-1.30); GLOMERULAR FILTRATION RATE 36.8 (>35); GLUCOSE, FASTING 140 MG/DL (70-100); PHOSPHORUS LEVEL 2.8 MG/DL (2.5-4.9); POTASSIUM SERUM 3.4 MEQ/L (3.5-5.1); SODIUM LEVEL 141 MEQ/L (136-145)
[2017-07-08] MEDS: LevoFLOXacin 250 MG TABLET PO (06:20)
[2017-07-08] MEDS ORDERED: FLEET ENEMA PR (09:00)
[2017-07-08] MEDS: ATORVASTATIN 20 MG TAB PO (09:13)
[2017-07-08] MEDS: LEVEMIR (INSULIN DETEMIR) 1 UNITS/0.01ML SC (09:13)
[2017-07-08] MEDS: HumaLOG INSULIN (NovoLOG) PER UNIT SC ×4 (09:14→20:53)
[2017-07-08] MEDS: SENOKOT S TAB PO ×2 (09:41→21:00)
[2017-07-08] MEDS: POTASSIUM CHLORIDE 10 MEQ SR TABLET PO (09:42)
[2017-07-08] MEDS: MIRALAX *UNIT DOSE* 17GM PACKET PO ×2 (09:42→21:00)
[2017-07-08 11:47] LABS: BEDSIDE GLUCOSE 153 MG/DL (83-110)
[2017-07-08] MEDS: BISACODYL 10 MG SUPP PR (15:01)
[2017-07-08 17:02] LABS: BEDSIDE GLUCOSE 72 MG/DL (83-110)
[2017-07-08] MEDS: PANTOPRAZOLE 40MG INJ (PROTONIX) (C9113) IV (17:39)
[2017-07-08] MEDS ORDERED: SLF 3 ML SYR IV (17:45)
[2017-07-08] MEDS: DEXTROSE 50% 50 ML SYRINGE IV (21:27)
[2017-07-08] MEDS: ONDANSETRON 4MG/2ML VIAL (J2405) IV (21:36)
[2017-07-08] MEDS: SLF 3 ML SYR IV (21:37)
[2017-07-08 21:57] LABS: BEDSIDE GLUCOSE 47 MG/DL (83-110)
[2017-07-08 21:57] LABS: BEDSIDE GLUCOSE 42 MG/DL (83-110)
[2017-07-08 21:57] LABS: BEDSIDE GLUCOSE 100 MG/DL (83-110)
[2017-07-08 23:18] LABS: BEDSIDE GLUCOSE 90 MG/DL (83-110)
[2017-07-09 01:19] LABS: BEDSIDE GLUCOSE 86 MG/DL (83-110)
[2017-07-09 04:12] LABS: BEDSIDE GLUCOSE 95 MG/DL (83-110)
[2017-07-09] MEDS: LevoFLOXacin 250 MG TABLET PO (05:45)
[2017-07-09] MEDS: SLF 3 ML SYR IV (05:45)
[2017-07-09 05:57] LABS: HEMATOCRIT 34.3 % (42.0-52.0); HEMOGLOBIN 11.3 g/dl (14.0-18.0); MEAN CORPUSCULAR HEMOGLOBIN 26.5 pg (27.0-33.0); MEAN CORPUSCULAR HGB CONC 32.9 g/dl (32.0-36.5); MEAN CORPUSCULAR VOLUME 80.3 fl (80.0-96.0); PLATELET COUNT, AUTOMATED 514 10^3/uL (150-450); RED BLOOD COUNT 4.27 10^6/uL (4.30-6.10); RED CELL DISTRIBUTION WIDTH 15.9 % (11.5-14.5); WHITE BLOOD COUNT 13.3 10^3/uL (4.0-10.0)
[2017-07-09 06:09] LABS: ALBUMIN 1.9 GM/DL (3.2-5.2); ANION GAP 9 MEQ/L (8-16); BLOOD UREA NITROGEN 35 MG/DL (7-18); CALCIUM LEVEL 8.4 MG/DL (8.8-10.2); CARBON DIOXIDE LEVEL 31 MEQ/L (21-32); CHLORIDE LEVEL 100 MEQ/L (98-107); CREATININE FOR GFR 1.51 MG/DL (0.70-1.30); GLOMERULAR FILTRATION RATE 47.3 (>35); GLUCOSE, FASTING 106 MG/DL (70-100); MAGNESIUM LEVEL 1.8 MG/DL (1.8-2.4); PHOSPHORUS LEVEL 3.7 MG/DL (2.5-4.9); POTASSIUM SERUM 3.5 MEQ/L (3.5-5.1); SODIUM LEVEL 140 MEQ/L (136-145)
[2017-07-09] MEDS: HumaLOG INSULIN (NovoLOG) PER UNIT SC ×2 (07:30→13:35)
[2017-07-09] MEDS: LEVEMIR (INSULIN DETEMIR) 1 UNITS/0.01ML SC (09:00)
[2017-07-09] MEDS: MIRALAX *UNIT DOSE* 17GM PACKET PO (10:06)
[2017-07-09] MEDS: POTASSIUM CHLORIDE 10 MEQ SR TABLET PO (10:06)
[2017-07-09] MEDS: SENOKOT S TAB PO (10:07)
[2017-07-09 12:11] LABS: BEDSIDE GLUCOSE 193 MG/DL (83-110)
== END 2017-07-09 18:50 | disposition home or self-care (01) | DRG 654 ==
LOC: M OR 05:43 → M PCU 18:28
PROVIDERS: Internal Medicine
PROC: 0TTB4ZZ Resection of Bladder, Percutaneous Endoscopic Approach (ICD-10-PCS; principal; 2017-07-02 07:30)
PROC: 07BC4ZX Excision of Pelvis Lymphatic, Percutaneous Endoscopic Approach, Diagnostic (ICD-10-PCS; 2017-07-02 07:30)
PROC: 0T184JC Bypass Bilateral Ureters to Ileocutaneous with Synthetic Substitute, Percutaneous Endoscopic Approach (ICD-10-PCS; 2017-07-02 07:30)
PROC: 8E0W4CZ Robotic Assisted Procedure of Trunk Region, Percutaneous Endoscopic Approach (ICD-10-PCS; 2017-07-02 07:30)
DX: C67.9 Malignant neoplasm of bladder, unspecified (principal); N17.9 Acute kidney failure, unspecified; J90 Pleural effusion, not elsewhere classified; J98.11 Atelectasis; K56.7 Ileus, unspecified; E11.9 Type 2 diabetes mellitus without complications; E78.5 Hyperlipidemia, unspecified; M54.5 Low back pain; Z79.4 Long term (current) use of insulin; Z79.899 Other long term (current) drug therapy

== ENCOUNTER → 2017-07-24 | Outpatient (CLI) | payer OTHER ==
[2017-07-24 17:47] LABS: ANION GAP 8 MEQ/L (8-16); BLOOD UREA NITROGEN 14 MG/DL (7-18); CALCIUM LEVEL 8.8 MG/DL (8.8-10.2); CARBON DIOXIDE LEVEL 26 MEQ/L (21-32); CHLORIDE LEVEL 107 MEQ/L (98-107); CREATININE FOR GFR 1.11 MG/DL (0.70-1.30); GLOMERULAR FILTRATION RATE > 60.0 (>35); GLUCOSE, FASTING 104 MG/DL (70-100); POTASSIUM SERUM 4.7 MEQ/L (3.5-5.1); SODIUM LEVEL 141 MEQ/L (136-145)
[2017-07-24 18:28] LABS: HEMATOCRIT 38.9 % (42.0-52.0); HEMOGLOBIN 12.2 g/dl (14.0-18.0); MEAN CORPUSCULAR HEMOGLOBIN 26.1 pg (27.0-33.0); MEAN CORPUSCULAR HGB CONC 31.4 g/dl (32.0-36.5); MEAN CORPUSCULAR VOLUME 83.3 fl (80.0-96.0); PLATELET COUNT, AUTOMATED 526 10^3/uL (150-450); RED BLOOD COUNT 4.67 10^6/uL (4.30-6.10); RED CELL DISTRIBUTION WIDTH 17.2 % (11.5-14.5); WHITE BLOOD COUNT 8.9 10^3/uL (4.0-10.0)
== END ==
LOC: M SMT 13:43
DX: Z85.51 Personal history of malignant neoplasm of bladder (principal)
CPT/HCPCS: 80048

== ENCOUNTER → 2017-08-23 | Outpatient (REF) | payer OTHER ==
[2017-08-23 11:02] LABS: HEMATOCRIT 39.7 % (42.0-52.0); HEMOGLOBIN 12.6 g/dl (13.5-17.5); MEAN CORPUSCULAR HEMOGLOBIN 26.4 pg (27.0-33.0); MEAN CORPUSCULAR HGB CONC 31.7 g/dl (32.0-36.5); MEAN CORPUSCULAR VOLUME 83.2 fl (80.0-96.0); PLATELET COUNT, AUTOMATED 393 10^3/uL (150-450); RED BLOOD COUNT 4.77 10^6/uL (4.30-6.10); RED CELL DISTRIBUTION WIDTH 18.2 % (11.5-14.5)
[2017-08-23 11:19] LABS: ALBUMIN 3.5 GM/DL (3.2-5.2); ALBUMIN/GLOBULIN RATIO 0.97 (1.00-1.93); ALKALINE PHOSPHATASE 141 U/L (45-117); ALT/SGPT 13 U/L (12-78); ANION GAP 7 MEQ/L (8-16); AST/SGOT 8 U/L (7-37); BILIRUBIN,TOTAL 0.5 MG/DL (0.2-1.0); BLOOD UREA NITROGEN 13 MG/DL (7-18); CALCIUM LEVEL 8.8 MG/DL (8.8-10.2); CARBON DIOXIDE LEVEL 28 MEQ/L (21-32); CHLORIDE LEVEL 106 MEQ/L (98-107); CHOLESTEROL LEVEL 107 MG/DL (<200); CHOLESTEROL RISK RATIO 3.057 (<5); CREATININE FOR GFR 0.88 MG/DL (0.70-1.30); ESTIMATED AVERAGE GLUCOSE 157 MG/DL (60-110); GLOMERULAR FILTRATION RATE > 60.0 (>35); GLUCOSE, FASTING 141 MG/DL (70-100); HDL CHOLESTEROL 35 MG/DL (>40); HEMOGLOBIN A1c 7.1 %; LDL CHOLESTEROL 50.8 MG/DL (<100); NON-HDL-C 72 MG/DL; POTASSIUM SERUM 4.4 MEQ/L (3.5-5.1); SODIUM LEVEL 141 MEQ/L (136-145); TOTAL PROTEIN 7.1 GM/DL (6.4-8.2); TRIGLYCERIDES LEVEL 106 MG/DL (<150)
[2017-08-23 11:35] LABS: MAU/CREAT RATIO 33.7 MCG/MG (0.0-30.0)
== END ==
LOC: M SFHCPLAZ 08:54
DX: Z79.4 Long term (current) use of insulin (principal); Z85.51 Personal history of malignant neoplasm of bladder; E11.9 Type 2 diabetes mellitus without complications; E78.5 Hyperlipidemia, unspecified
CPT/HCPCS: 80053

== ENCOUNTER → 2017-11-19 | Outpatient (CLI) | payer OTHER ==
[2017-11-19 13:19] LABS: HEMATOCRIT 39.6 % (42.0-52.0); HEMOGLOBIN 12.6 g/dl (13.5-17.5); MEAN CORPUSCULAR HEMOGLOBIN 27.6 pg (27.0-33.0); MEAN CORPUSCULAR HGB CONC 31.8 g/dl (32.0-36.5); MEAN CORPUSCULAR VOLUME 86.8 fl (80.0-96.0); PLATELET COUNT, AUTOMATED 350 10^3/uL (150-450); RED BLOOD COUNT 4.56 10^6/uL (4.30-6.10); RED CELL DISTRIBUTION WIDTH 14.4 % (11.5-14.5); WHITE BLOOD COUNT 5.6 10^3/uL (4.0-10.0)
[2017-11-19 13:42] LABS: ANION GAP 9 MEQ/L (8-16); BLOOD UREA NITROGEN 11 MG/DL (7-18); CALCIUM LEVEL 8.8 MG/DL (8.8-10.2); CARBON DIOXIDE LEVEL 29 MEQ/L (21-32); CHLORIDE LEVEL 108 MEQ/L (98-107); CREATININE FOR GFR 0.91 MG/DL (0.70-1.30); GLOMERULAR FILTRATION RATE > 60.0 (>35); GLUCOSE, FASTING 104 MG/DL (70-100); POTASSIUM SERUM 4.1 MEQ/L (3.5-5.1); SODIUM LEVEL 146 MEQ/L (136-145)
== END ==
LOC: M SMT 11:17
DX: Z85.51 Personal history of malignant neoplasm of bladder (principal)
CPT/HCPCS: 80048

== ENCOUNTER → 2018-02-28 | Outpatient (REF) | payer OTHER ==
[2018-02-28 11:53] LABS: HEMATOCRIT 41.1 % (42.0-52.0); HEMOGLOBIN 13.2 g/dl (13.5-17.5); MEAN CORPUSCULAR HEMOGLOBIN 28.7 pg (27.0-33.0); MEAN CORPUSCULAR HGB CONC 32.1 g/dl (32.0-36.5); MEAN CORPUSCULAR VOLUME 89.3 fl (80.0-96.0); PLATELET COUNT, AUTOMATED 293 10^3/uL (150-450); WHITE BLOOD COUNT 7.9 10^3/uL (4.0-10.0)
[2018-02-28 12:59] LABS: ESTIMATED AVERAGE GLUCOSE 194 MG/DL (60-110); HEMOGLOBIN A1c 8.4 %
[2018-02-28 16:09] LABS: ALBUMIN 3.5 GM/DL (3.2-5.2); ALBUMIN/GLOBULIN RATIO 1.06 (1.00-1.93); ALKALINE PHOSPHATASE 110 U/L (45-117); ALT/SGPT 16 U/L (12-78); ANION GAP 11 MEQ/L (8-16); AST/SGOT 8 U/L (7-37); BILIRUBIN,TOTAL 0.5 MG/DL (0.2-1.0); BLOOD UREA NITROGEN 20 MG/DL (7-18); CALCIUM LEVEL 8.9 MG/DL (8.8-10.2); CARBON DIOXIDE LEVEL 24 MEQ/L (21-32); CHLORIDE LEVEL 107 MEQ/L (98-107); CREATININE FOR GFR 1.05 MG/DL (0.70-1.30); GLOMERULAR FILTRATION RATE > 60.0 (>35); GLUCOSE, FASTING 179 MG/DL (70-100); POTASSIUM SERUM 4.4 MEQ/L (3.5-5.1); SODIUM LEVEL 142 MEQ/L (136-145); TOTAL PROTEIN 6.8 GM/DL (6.4-8.2)
== END ==
LOC: M SFHCPLAZ 09:43
DX: Z85.51 Personal history of malignant neoplasm of bladder (principal); E11.9 Type 2 diabetes mellitus without complications
CPT/HCPCS: 80053

== ENCOUNTER → 2018-06-25 | Outpatient (REF) | payer MEDICARE, OTHER ==
[~2018-06-25] MED LIST changes: +ACTO45TA12 PO; +ASPI1TAB PO; +ASPI81TA85 PO; +ATOR40TA75 PO; +CIPR500T3 PO; +FLOM0.4C39 PO; +GLIP10TA18 PO; +INSULANT SC; -ISOVUE-370 76% 100ML VIAL (Q9967) As Ordered ONE; +LEVA250T13 PO; +METF750T PO; +TYLE650T35 PO
== END ==
LOC: M SMT 16:51
PROVIDERS: ATTEND Urology
DX: Z85.51 Personal history of malignant neoplasm of bladder (principal)
CPT/HCPCS: 88108; G0463

== ENCOUNTER → 2018-07-04 | Outpatient (CLI) | payer MEDICARE ==
[2018-07-04 13:45] LABS: HEMATOCRIT 43.6 % (42.0-52.0); HEMOGLOBIN 14.1 g/dl (13.5-17.5); MEAN CORPUSCULAR HEMOGLOBIN 29.8 pg (27.0-33.0); MEAN CORPUSCULAR HGB CONC 32.3 g/dl (32.0-36.5); MEAN CORPUSCULAR VOLUME 92.2 fl (80.0-96.0); PLATELET COUNT, AUTOMATED 285 10^3/uL (150-450); RED BLOOD COUNT 4.73 10^6/uL (4.30-6.10)
[2018-07-04 13:49] LABS: BLOOD UREA NITROGEN 17 MG/DL (7-18); CALCIUM LEVEL 8.8 MG/DL (8.8-10.2); CARBON DIOXIDE LEVEL 25 MEQ/L (21-32); CHLORIDE LEVEL 108 MEQ/L (98-107); CREATININE FOR GFR 1.09 MG/DL (0.70-1.30); GLOMERULAR FILTRATION RATE > 60.0 (>35); GLUCOSE, FASTING 152 MG/DL (70-100); POTASSIUM SERUM 5.1 MEQ/L (3.5-5.1); SODIUM LEVEL 141 MEQ/L (136-145)
== END ==
LOC: M SMT 10:31
PROVIDERS: ATTEND Urology
DX: Z85.51 Personal history of malignant neoplasm of bladder (principal)

== ENCOUNTER → 2018-07-24 | Outpatient (CLI) | payer MEDICARE ==
[~2018-07-24] MED LIST changes: +ISOVUE-370 76% 125ML VIAL (Q9967 PER ML) As Ordered ONE
--- NOTE | 2018-07-25 16:31 | REP ---
Clinical: History of bladder cancer. Technique: Axial precontrast, contrast enhanced, and delayed images of the abdomen and pelvis using 100 ml Isovue 370 intravenous contrast material with coronal and sagittal re-formations. Comparison: 04/17/2017. Findings: The patient is noted to be status post bladder resection and diverting urostomy via the right anterior abdominal wall which appears essentially normal. The kidneys demonstrate chronic age-related atrophic changes without perinephric stranding, nephrolithiasis, renal cystic or mass lesion, and no evidence for hydroureteronephrosis. No recurrent mass lesion or adenopathy appreciated. Liver, spleen, pancreas, and bilateral adrenal glands are normal. Cholelithiasis noted without acute cholecystitis. The enteric system demonstrates diverticulosis without acute diverticulitis and no evidence for bowel obstruction or acute inflammatory process. Pelvis demonstrates prior bladder and prostate resection. No pelvic fluid, adenopathy or mass. No intraperitoneal or retroperitoneal adenopathy. No ascites. No free air. Atherosclerotic changes of the aorta and vasculature noted without aneurysm or dissection. Musculoskeletal structures demonstrate degenerative changes without focal osseous abnormality. Lung bases demonstrate moderate subpleural fibrosis and mild bronchiectasis. Impression: 1. Evidence for prior bladder resection with relatively normal appearing diverting urostomy via the right anterior abdominal wall. No hydroureteronephrosis. 2. No evidence for recurrence, metastatic disease, adenopathy, or ascites. 3. Diverticulosis. 4. Cholelithiasis. Electronically Signed by Omar Ross MD 07/25/2018 04:22 P
== END ==
LOC: M RAD 12:18
PROVIDERS: ATTEND Urology
DX: Z85.51 Personal history of malignant neoplasm of bladder (principal); Z93.59 Other cystostomy status; I70.0 Atherosclerosis of aorta; K57.90 Diverticulosis of intestine, part unspecified, without perforation or abscess without bleeding; K80.20 Calculus of gallbladder without cholecystitis without obstruction
CPT/HCPCS: 74178; Q9967

== ENCOUNTER → 2018-10-22 | Outpatient (REF) | payer MEDICARE ==
[~2018-10-22] MED LIST changes: -ASPI1TAB PO; +ASPI81TA26 PO; -ISOVUE-370 76% 125ML VIAL (Q9967 PER ML) As Ordered ONE
[2018-10-22 10:07] LABS: HEMATOCRIT 42.6 % (42.0-52.0); HEMOGLOBIN 13.7 g/dl (13.5-17.5); MEAN CORPUSCULAR HEMOGLOBIN 29.8 pg (27.0-33.0); MEAN CORPUSCULAR HGB CONC 32.2 g/dl (32.0-36.5); MEAN CORPUSCULAR VOLUME 92.8 fl (80.0-96.0); PLATELET COUNT, AUTOMATED 266 10^3/uL (150-450); RED BLOOD COUNT 4.59 10^6/uL (4.30-6.10); WHITE BLOOD COUNT 7.4 10^3/uL (4.0-10.0)
[2018-10-22 10:27] LABS: HEMOGLOBIN A1c 9.4 %
[2018-10-22 10:28] LABS: ALBUMIN 3.6 GM/DL (3.2-5.2); ALT/SGPT 22 U/L (12-78); BILIRUBIN,TOTAL 0.4 MG/DL (0.2-1.0); BLOOD UREA NITROGEN 16 MG/DL (7-18); CALCIUM LEVEL 8.8 MG/DL (8.8-10.2); CARBON DIOXIDE LEVEL 26 MEQ/L (21-32); CHLORIDE LEVEL 108 MEQ/L (98-107); CHOLESTEROL LEVEL 118 MG/DL (<200); CHOLESTEROL RISK RATIO 3.806 (<5); CREATININE FOR GFR 1.14 MG/DL (0.70-1.30); GLOMERULAR FILTRATION RATE > 60.0 (>35); GLUCOSE, FASTING 208 MG/DL (70-100); HDL CHOLESTEROL 31 MG/DL (>40); LDL CHOLESTEROL 49 MG/DL (<100); NON-HDL-C 87 MG/DL; POTASSIUM SERUM 4.1 MEQ/L (3.5-5.1); SODIUM LEVEL 141 MEQ/L (136-145); TOTAL PROTEIN 6.8 GM/DL (6.4-8.2); TRIGLYCERIDES LEVEL 190 MG/DL (<150)
[2018-10-22 10:38] LABS: MALB URINE SIEMENS 86.9 MG/L; MAU/CREAT RATIO 81.9 MCG/MG (0.0-30.0)
== END ==
LOC: M SFHCPLAZ 08:25
PROVIDERS: ATTEND Internal Medicine
DX: Z85.51 Personal history of malignant neoplasm of bladder (principal); E11.9 Type 2 diabetes mellitus without complications; E78.5 Hyperlipidemia, unspecified

== ENCOUNTER → 2018-12-23 | Outpatient (REF) | payer MEDICARE | LOC: M SMT 13:23 | PROVIDERS: ATTEND Urology | DX: Z85.51 Personal history of malignant neoplasm of bladder (principal) | CPT/HCPCS: 88108; G0463 ==

== ENCOUNTER → 2019-01-20 | Outpatient (REF) | payer MEDICARE ==
[~2019-01-20] MED LIST changes: -METF750T PO; +METF750T36 PO
[2019-01-20 12:22] LABS: HEMATOCRIT 43.8 % (42.0-52.0); HEMOGLOBIN 14.3 g/dl (13.5-17.5); MEAN CORPUSCULAR HGB CONC 32.6 g/dl (32.0-36.5); PLATELET COUNT, AUTOMATED 270 10^3/uL (150-450); RED BLOOD COUNT 4.61 10^6/uL (4.30-6.10); WHITE BLOOD COUNT 6.6 10^3/uL (4.0-10.0)
[2019-01-20 12:30] LABS: ALBUMIN 3.6 GM/DL (3.2-5.2); ALT/SGPT 16 U/L (12-78); BILIRUBIN,TOTAL 0.5 MG/DL (0.2-1.0); BLOOD UREA NITROGEN 14 MG/DL (7-18); CALCIUM LEVEL 9.4 MG/DL (8.8-10.2); CARBON DIOXIDE LEVEL 25 MEQ/L (21-32); CHLORIDE LEVEL 110 MEQ/L (98-107); CREATININE FOR GFR 1.04 MG/DL (0.70-1.30); GLOMERULAR FILTRATION RATE > 60.0 (>35); GLUCOSE, FASTING 195 MG/DL (70-100); POTASSIUM SERUM 4.2 MEQ/L (3.5-5.1); SODIUM LEVEL 142 MEQ/L (136-145); TOTAL PROTEIN 6.6 GM/DL (6.4-8.2)
[2019-01-20 12:40] LABS: HEMOGLOBIN A1c 8.9 %
[2019-01-20 12:54] LABS: CREATININE, URINE 98.1 MG/DL; MAU/CREAT RATIO 120.2 MCG/MG (0.0-30.0)
== END ==
LOC: M SFHCPLAZ 09:43
PROVIDERS: ATTEND Internal Medicine
DX: Z98.890 Other specified postprocedural states (principal); Z85.51 Personal history of malignant neoplasm of bladder; E11.9 Type 2 diabetes mellitus without complications

== ENCOUNTER → 2019-06-01 | Outpatient (REF) | payer MEDICARE ==
[2019-06-01 14:21] LABS: ALBUMIN 4.1 GM/DL (3.2-5.2); BILIRUBIN,TOTAL 0.5 MG/DL (0.2-1.0); CALCIUM LEVEL 9.2 MG/DL (8.8-10.2); CHOLESTEROL RISK RATIO 3.794 (<5); CREATININE FOR GFR 1.23 MG/DL (0.70-1.30); GLOMERULAR FILTRATION RATE 59.7 (>35); POTASSIUM SERUM 4.7 MEQ/L (3.5-5.1); TOTAL PROTEIN 7.3 GM/DL (6.4-8.2)
[2019-06-01 14:46] LABS: HEMOGLOBIN A1c 8.3 %
== END ==
LOC: M SFHCPLAZ 10:51
PROVIDERS: ATTEND Internal Medicine
DX: E11.9 Type 2 diabetes mellitus without complications (principal); E78.5 Hyperlipidemia, unspecified
CPT/HCPCS: 36415; 80053; 80061; 83036; G0463

== ENCOUNTER → 2019-06-24 | Outpatient (CLI) | payer MEDICARE ==
[~2019-06-24] MED LIST changes: +ISOVUE-370 76% 100ML VIAL (Q9967) As Ordered ONE
--- NOTE | 2019-06-24 09:53 | REP ---
Clinical: History of bladder cancer. Restaging. Technique: Axial precontrast, contrast enhanced, and delayed images of the abdomen and pelvis using 100 ml Isovue 370 intravenous contrast material with coronal and sagittal re-formations. Comparison: 07/24/2018. Findings: The patient is again noted to be status post bladder resection with ileal conduit/urostomy via the right anterior abdominal wall. The kidneys demonstrate age-related cortical thinning without perinephric stranding or obvious abnormality and delayed images demonstrate normal symmetric excretion to the collecting system without hydronephrosis. Liver, spleen, pancreas, and bilateral adrenal glands are normal. Cholelithiasis again noted without evidence for acute cholecystitis. The enteric system is without obstruction or acute inflammatory process. Normal terminal ileum and cecum are identified in the right lower quadrant. Sigmoid diverticulosis noted without acute diverticulitis. Pelvis demonstrates the patient to be status post bladder resection. No recurrent mass lesion or evidence for metastatic disease is appreciated. No pelvic, abdominal, or retroperitoneal adenopathy. No ascites. Atherosclerotic changes to the aorta and vasculature noted without aneurysm or dissection. Musculoskeletal structures demonstrate degenerative changes. Lung bases demonstrate a subtle reticulonodular interstitial pattern which is nonspecific and similar to prior examination. Impression: 1. Status post bladder resection without evidence for recurrent or metastatic disease within the abdomen and pelvis. 2. Kidneys and ureters appear relatively normal via ileal conduit and urostomy at the anterior abdominal wall. 3. Cholelithiasis. 4. Diverticulosis. 5. Lung bases demonstrate a subtle reticulonodular interstitial pattern similar to prior examination. Complete chest CT for further investigation may be warranted. Electronically Signed by Omar Ross MD 06/24/2019 09:20 A
== END ==
LOC: M RAD 08:38
PROVIDERS: ATTEND Urology
DX: K57.30 Diverticulosis of large intestine without perforation or abscess without bleeding (principal); K80.20 Calculus of gallbladder without cholecystitis without obstruction; R91.8 Other nonspecific abnormal finding of lung field; Z85.51 Personal history of malignant neoplasm of bladder; Z98.890 Other specified postprocedural states
CPT/HCPCS: 74178; Q9967

== ENCOUNTER → 2019-07-20 | Outpatient (REF) | payer MEDICARE ==
[~2019-07-20] MED LIST changes: -ISOVUE-370 76% 100ML VIAL (Q9967) As Ordered ONE
== END ==
LOC: M SMT 17:11
PROVIDERS: ATTEND Urology
DX: Z85.51 Personal history of malignant neoplasm of bladder (principal)
CPT/HCPCS: 88108; G0463

== ENCOUNTER → 2020-02-25 | Outpatient (REF) | payer MEDICARE ==
[~2020-02-25] MED LIST changes: +ACET650T61 PO; -ASPI81TA85 PO; +ASPI81TA86 PO; -TYLE650T35 PO
== END ==
LOC: M SMT 17:28
PROVIDERS: ATTEND Urology
DX: C67.9 Malignant neoplasm of bladder, unspecified (principal)
CPT/HCPCS: 88108; G0463

== ENCOUNTER → 2020-04-18 | Outpatient (REF) | payer MEDICARE ==
[2020-04-18 17:09] LABS: BASO # 0.1 10^3/uL (0.0-0.2); BASO % 0.6 % (0.0-1.0); EOS # 0.1 10^3/uL (0.0-0.5); EOS % 0.8 % (0.0-3.0); HEMATOCRIT 43.4 % (42.0-52.0); HEMOGLOBIN 13.7 g/dl (13.5-17.5); LYMPH # 2.7 10^3/uL (1.5-5.0); LYMPH % 29.4 % (24.0-44.0); MEAN CORPUSCULAR HEMOGLOBIN 29.3 pg (27.0-33.0); MEAN CORPUSCULAR HGB CONC 31.6 g/dl (32.0-36.5); MEAN CORPUSCULAR VOLUME 92.9 fl (80.0-96.0); MONO # 0.7 10^3/uL (0.0-0.8); MONO % 7.3 % (0.0-5.0); NEUTROPHILS # 5.5 10^3/uL (1.5-8.5); NEUTROPHILS % 60.9 % (36.0-66.0); PLATELET COUNT, AUTOMATED 305 10^3/uL (150-450); RED BLOOD COUNT 4.67 10^6/uL (4.30-6.10)
[2020-04-18 17:35] LABS: ALBUMIN 3.7 GM/DL (3.2-5.2); BILIRUBIN,TOTAL 0.4 MG/DL (0.2-1.0); CALCIUM LEVEL 9.4 MG/DL (8.8-10.2); CREATININE FOR GFR 1.52 MG/DL (0.70-1.30); GLOMERULAR FILTRATION RATE 46.6 (>35); POTASSIUM SERUM 4.9 MEQ/L (3.5-5.1); TOTAL PROTEIN 7.1 GM/DL (6.4-8.2)
[2020-04-18 18:51] LABS: HEMOGLOBIN A1c 8.3 %
== END ==
LOC: M SFHCPLAZ 15:35
PROVIDERS: ATTEND Internal Medicine
DX: E11.9 Type 2 diabetes mellitus without complications (principal); Z85.51 Personal history of malignant neoplasm of bladder; Z11.59 Encounter for screening for other viral diseases
CPT/HCPCS: 36415; 80053; 83036; 85025; G0463; G0472

== ENCOUNTER 2020-05-10 11:48 | Inpatient (IN) | payer MEDICARE ==
[~2020-05-10] VITALS: Ht 185.4 cm; Wt 83.2 kg
[2020-05-10] VITALS (12 sets, daily range): BP systolic 121–144; BP diastolic 62–76
[~2020-05-10 11:48] MED LIST changes: +ATORVASTATIN 20 MG TAB PO SCH
[2020-05-10] MEDS ORDERED: NS 1,000 ML IV SCH ×2 (12:36→23:30)
--- NOTE | 2020-05-10 12:54 | REP ---
INDICATION: DKA. COMPARISON: 07/02/2017. TECHNIQUE: SINGLE PORTABLE AP VIEW OF THE CHEST WAS PERFORMED. FINDINGS: There is no acute infiltrate or pulmonary edema. The heart is normal in size. The mediastinal silhouette is unchanged. The visualized osseous structures are unremarkable. IMPRESSION: NO ACUTE PULMONARY DISEASE. <Electronically signed by Farzad Cornejo > 05/10/20 1902
--- NOTE | 2020-05-10 13:07 | REP ---
INDICATION: altered mental status COMPARISON: None. TECHNIQUE: Axial noncontrast images from the skull base to the thoracic inlet with coronal reformations. This CT examination was performed using the following dose reduction techniques: Automated exposure control, adjustment of mA and/or kv according to the patient's size, and use of iterative reconstruction technique. FINDINGS: Age-related atrophy with periventricular leukomalacia and microvascular ischemic changes are appreciated. The ventricles and sulci are symmetric. Cornejo-white differentiation is maintained. There is no evidence for acute intracranial hemorrhage, mass/mass effect, pathology or infarction. No extra-axial fluid collection. Calvarium is intact. Paranasal sinuses and mastoid air cells are clear. Incidental 3 cm sebaceous cyst along the posterior midline aspect of the calvarium. IMPRESSION: Age related atrophy and microvascular ischemic changes. No acute intracranial hemorrhage, infarction, or mass/mass effect. <Electronically signed by Omar Ross > 05/10/20 [id number]
[2020-05-10 13:10] LABS: VENOUS BASE EXCESS -14.5 (-2.0-2.0); VENOUS PARTIAL PRESSURE CO2 22.4 mmHg (38.0-50.0); VENOUS PARTIAL PRESSURE O2 82.6 mmHg (30.0-50.0); VENOUS PH 7.269 UNITS (7.330-7.430); VENOUS STANDARD HCO3 13.6 MEQ/L; VENOUS TOTAL CO2 10.7 MEQ/L (24.0-28.0)
[2020-05-10 13:18] LABS: BASO # 0.1 10^3/uL (0.0-0.2); BASO % 0.5 % (0.0-1.0); HEMATOCRIT 52.7 % (42.0-52.0); HEMOGLOBIN 15.4 g/dl (13.5-17.5); LYMPH # 0.9 10^3/uL (1.5-5.0); LYMPH % 7.3 % (24.0-44.0); MEAN CORPUSCULAR HEMOGLOBIN 28.1 pg (27.0-33.0); MEAN CORPUSCULAR HGB CONC 29.2 g/dl (32.0-36.5); MONO % 7.8 % (0.0-5.0); NEUTROPHILS # 10.2 10^3/uL (1.5-8.5); NEUTROPHILS % 83.3 % (36.0-66.0); RED BLOOD COUNT 5.49 10^6/uL (4.30-6.10); WHITE BLOOD COUNT 12.3 10^3/uL (4.0-10.0)
[2020-05-10 13:49] LABS: OSMOLALITY SERUM 370 MOSM/KG (280-301)
[2020-05-10 13:51] LABS: HEMOGLOBIN A1c 8.9 %
[2020-05-10 14:12] LABS: ACETONE/KETONE > 46.00 MG/DL (<2.81); ALBUMIN 3.1 GM/DL (3.2-5.2); ALT/SGPT 63 U/L (12-78); BILIRUBIN,DIRECT 0.5 MG/DL (0.0-0.2); BILIRUBIN,TOTAL 0.9 MG/DL (0.2-1.0); BLOOD UREA NITROGEN 47 MG/DL (7-18); CALCIUM LEVEL 9.9 MG/DL (8.8-10.2); CARBON DIOXIDE LEVEL 16 MEQ/L (21-32); CHLORIDE LEVEL 112 MEQ/L (98-107); CK-MB VALUE MASS 24.1 NG/ML (<3.6); CPK CREATINE PHOSPHOKINASE 2919 U/L (39-308); CREATININE FOR GFR 2.14 MG/DL (0.70-1.30); ETHYL ALCOHOL (ETHANOL) 0.005 % (0.000-0.010); FREE T4 1.45 NG/DL (0.76-1.46); GLOMERULAR FILTRATION RATE 31.4 (>35); GLUCOSE, FASTING 611 MG/DL (70-100); LIPASE 39 U/L (73-393); MB/CK RELATIVE INDEX 0.83 (< OR =4); POTASSIUM SERUM 5.5 MEQ/L (3.5-5.1); SODIUM LEVEL 147 MEQ/L (136-145); THYROID STIMULATING HORMONE 0.666 uIU/ML (0.358-3.740); TOTAL PROTEIN 7.9 GM/DL (6.4-8.2); TROPONIN I 0.03 NG/ML (< 0.10)
[2020-05-10] MEDS ORDERED: INSULIN REGULAR IN 0.9 % NACL 100 UNIT in IV 1 EA IV SCH ×4 (14:51→15:01)
[2020-05-10] MEDS ORDERED: INSULIN IV RATE CHANGE DOCUMENTATION ML/HR XX SCH (15:00)
[2020-05-10] MEDS ORDERED: HumuLIN R (REGULAR) INSULIN (NovoLIN R) **100U/ML** PER UNIT IV ONE (15:00)
[2020-05-10] MEDS ORDERED: ASPI81TA26 PO (15:07)
[2020-05-10] MEDS ORDERED: GLIP10TA6 PO (15:07)
[2020-05-10] MEDS ORDERED: VITMTA PO (15:07)
[2020-05-10] MEDS ORDERED: MED REC COMMENT (15:08)
[2020-05-10 15:14] LABS: AMPHETAMINES LEVEL URINE NEGATIVE (NEGATIVE); BARBITURATES URINE NEGATIVE (NEGATIVE); BENZODIAZEPINES URINE NEGATIVE (NEGATIVE); CANNABINOIDS URINE NEGATIVE (NEGATIVE); COCAINE METABOLITE URINE NEGATIVE (NEGATIVE); METHADONE URINE NEGATIVE (NEGATIVE); OPIATES URINE NEGATIVE (NEGATIVE); PHENCYCLIDINE URINE NEGATIVE (NEGATIVE)
[2020-05-10] MEDS: NS 1,000 ML IV SCH ×2 (15:30→20:59)
[2020-05-10] MEDS: PANTOPRAZOLE 40MG VIAL (C9113 PER 1) IV SCH (15:58)
--- NOTE | 2020-05-10 16:13 | HPEPDOC ---
[facility] Medical History & Physical Date of Admission May 10, 2020 Date of Service: May 10, 2020 History and Physical CHIEF COMPLAINT: Found in the back bedroom unable to get up HISTORY OF PRESENT ILLNESS: 84-year-old male who lives alone in a one-story home with 3 steps into the home , and usually very active with past medical history significant for type 2 diabetes, bladder CA status post robotic radical cystoscopy prostatectomy June 2017 with urostomy, chronic kidney disease stage III, hyperlipidemia, GRADE 1 LV diastolic dysfunction 2018 Echocardiogram, brought in by ambulance After being found by the patient's daughter and son-in-law in his home, unable to get up in the back bedroom lying on the floor unable to pull up his underwear, with a full urostomy bag lying in urine with his eyes open but her eyes were glazed. Patient was known to be normal on 05/06/2020. He usually goes to the diner with his son-in-law. His son-in-law Karan phone number [phone], came over to his house to check up on him since he was not answering his telephone since 05/07/2020 when his other daughter called him but he did not answer. Since the patient was not answering his son-in-law by telephone. His mom called his for them to come into the home to check up on him. He was not answering the door and was not sitting in his rocking chair in the living room. They found him in the back bedroom with his urostomy bag full lying on the floor in urine. They thought that he was hypoglycemic, so his daughter gave him peanut butter in his mouth to swallow as well as glucagon. History of called EMS and he was brought into the ER and found to be in diabetic ketoacidosis with acute on chronic renal failure due to acute rhabdomyolysis.CT head: negative for acute intracranial abnormality. cxr: no acute cardiopulmonary process. Patient denies any fever, chills, shortness of breath, chest pain, pressure or tightness, l ightheadedness or dizziness. . He did not remember how he felt down or how long he was down on the ground. He denies any nausea, vomiting, abdominal pain, dysuria, urgency, frequency. Hospitalist was called to admit the patient for diabetic ketoacidosis, renal failure due to rhabdomyolysis. PAST MEDICAL HISTORY: type 2 diabetes, bladder CA status post robotic radical cystoscopy prostatectomy June 2017 with urostomy, chronic kidney disease stage III, hyperlipidemia,GRADE 1 LV diastolic dysfunction 2018 Echocardiogram PAST SURGICAL HISTORY: Appendectomy at the age of 12. Right cataract surgery and left cataract surgery early colonoscopy. Transurethral resection of bladder tumor robotic radical cystoprostatectomy 07/02/2017 SOCIAL HISTORY: has daughter and son-in-law in the area. lives in a one-story home with 3 steps into the home. Denies any alcohol abuse, recreational drug use. 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 November 2012 HIS own home FAMILY HISTORY: Mother and father are . Father had chronic kidney disease stage IV of cancer and renal disease is stage of 79. Mother at 93 of CVA. He has one brother, one sister and 2 daughters. One son committed suicide in 2003 ALLERGIES: Please see below. REVIEW OF SYSTEMS: 12 point systems review negative aside from positive findings in HPI HOME MEDICATIONS: Please see below. PHYSICAL EXAMINATION: VITAL SIGNS: See below GENERAL APPEARANCE: Disheveled, no respiratory distress. Poor dentition with missing teeth HEENT: Dry mucous membranes. No JVD, thyromegaly or carotid bruit CARDIOVASCULAR: S1, S2, sinus rhythm, no murmurs, rubs or gallops LUNGS: Clear to auscultation. No wheezing, rales or rhonchi. Air entry is equal. No scoliosis ABDOMEN: Positive bowel sounds, soft, nontender, nondistended. No rebound or guarding. No hepatosplenomegaly. No abdominal bruit Urostomy bag EXTREMITIES: No cyanosis, clubbing or pitting edema LABORATORY DATA: See below. IMAGIN05/10/20 CT HEAD INDICATION: altered mental status COMPARISON: None. TECHNIQUE: Axial noncontrast images from the skull base to the thoracic inlet with coronal reformations. This CT examination was performed using the following dose reduction techniques: Automated exposure control, adjustment of mA and/or kv according to the patient's size, and use of iterative reconstruction technique. FINDINGS: Age-related atrophy with periventricular leukomalacia and microvascular ischemic changes are appreciated. The ventricles and sulci are symmetric. Cornejo-white differentiation is maintained. There is no evidence for acute intracranial hemorrhage, mass/mass effect, pathology or infarction. No extra-axial fluid collection. Calvarium is intact. Paranasal sinuses and mastoid air cells are clear. Incidental 3 cm sebaceous cyst along the posterior midline aspect of the calvarium. IMPRESSION: Age related atrophy and microvascular ischemic changes. No acute intracranial hemorrhage, infarction, or mass/mass effect. <Electronically signed by Omar Ross > 05/10/20 1304 05/10/20 CXR: INDICATION: DKA. COMPARISON: 07/02/2017. TECHNIQUE: SINGLE PORTABLE AP VIEW OF THE CHEST WAS PERFORMED. FINDINGS: There is no acute infiltrate or pulmonary edema. The heart is normal in size. The mediastinal silhouette is unchanged. The visualized osseous structures are unremarkable. IMPRESSION: NO ACUTE PULMONARY DISEASE. <Electronically signed by Farzad Cornejo > 05/10/20 1250 MICROBIOLOGY: Please see below. ASSESSMENT: 84-year-old male who lives alone in a one-story home with 3 steps into the home , and usually very active with past medical history significant for type 2 diabetes, bladder CA status post robotic radical cystoscopy prostatectomy June 2017 with urostomy, chronic kidney disease stage III, hyperlipidemia, brought in by ambulance After being found by the patient's daughter and son-in-law in his home, unable to get up in the back bedroom lying on the floor unable to pull up his underwear, with a full urostomy bag lying in urine with his eyes open but her eyes were glazed. Patient was known to be normal on 05/06/2020. He usually goes to the diner with his son-in-law. His son-in-law Karan phone number [phone], came over to his house to check up on him since he was not answering his telephone since 05/07/2020 when his other daughter called him but he did not answer. Since the patient was not answering his son-in-law by telephone. His mom called his for them to come into the home to check up on him. He was not answering the door and was not sitting in his rocking chair in the living room. They found him in the back bedroom with his urostomy bag full lying on the floor in urine. They thought that he was hypoglycemic, so his daughter gave him peanut butter in his mouth to swallow as well as glucagon. History of called EMS and he was brought into the ER and found to be in diabetic ketoacidosis with acute on chronic renal failure due to acute rhabdomyolysis.CT head: negative for acute intracranial abnormality. cxr: no acute cardiopulmonary process. Patient denies any fever, chills, shortness of breath, chest pain, pressure or tightness, lightheadedness or dizziness. . He did not remember how he felt down or how long he was down on the ground. He denies any nausea, vomiting, abdominal pain, dysuria, urgency, frequency. Hospitalist was called to admit the patient for diabetic ketoacidosis, renal failure due to rhabdomyolysis. PLAN: Acute diabetic ketoacidosis -Patient will be admitted as an inpatient to the intensive care unit with every hourly fingersticks. He had received intravenous regular insulin bolus and will be continued on maintenance until anion gap is closed and patient's acidemia has resolved. He'll be kept nothing by mouth with intravenous fluids every 4 hourly, BMP, magnesium and phosphorus replete electrolytes as needed. No signs of any acute infection, but will check UA, urine C&S, chest x-ray had no signs of acute infection. No empiric antibiotics for now. Intravenous fluids. Check A1c. Acute rhabdomyolysis on chronic kidney disease stage III -Patient will be given intravenous fluids normal saline. Change to D5 once glucose is 250. Monitor I's and O's and daily weights. Monitor for respiratory distress. Avoid nephrotoxins. Renally dose all medications. Avoid all nonsteroidal anti-inflammatory medications History of bladder tumor, status post TURBT robotic radical cystoscopy prostatectomy June 2017 with urostomy Urostomy care Hyperkalemia secondary to rhabdomyolysis. Telemetry monitoring on insulin drip and repeat metabolic panel every 4 hourly to check for resolution Dyslipidemia Chronic. Check lipid panel in the morning Grade 1 LV diastolic CHF, compensated appears euvolemic. will monitor i/o. daily weights and signs of respiratory distress. CXR clear. no LE edema or JVD on exam Deconditioning and debility status post fall at home. ARU screen fall precautions. Activity as tolerated. Diet nothing by mouth until acidosis resolves, then patient can be given consistent carbohydrate renal diet DVT prophylaxis. Compression stockings Disposition 3-4 days, pending ARU screen once medical issues are resolved Vital Signs Vital Signs Date Time Temp Pulse Resp B/P (MAP) Pulse Ox O2 Delivery O2 Flow Rate FiO2 05/10/20 12:16 94.7 05/10/20 12:15 156/82 (106) 05/10/20 12:03 127 24 93 Laboratory Data Labs 24H Laboratory Tests 2 05/10/20 12:50: Immature Granulocyte % (Auto) 1.1, Neutrophils (%) (Auto) 83.3H, Lymphocytes (%) (Auto) 7.3L, Monocytes (%) (Auto) 7.8H, Eosinophils (%) (Auto) 0.0, Basophils (%) (Auto) 0.5, Neutrophils # (Auto) 10.2H, Lymphocytes # (Auto) 0.9L, Monocytes # (Auto) 1.0H, Eosinophils # (Auto) 0.0, Basophils # (Auto) 0.1, Nucleated Red Blood Cells % (auto) 0.0, Blood Gas Bicarbonate Standard 13.6, Venous Blood pH 7.269L, Venous Blood Partial Pressure CO2 22.4L, Venous Blood Partial Pressure O2 82.6H, Venous Blood Total Carbon Dioxide 10.7L, Venous Blood HCO3 10.0L, Venous Blood Oxygen Saturation 95.0H, Venous Blood Base Excess -14.5L, Anion Gap 19H, Glomerular Filtration Rate 31.4L, Estimated Mean Plasma Glucose 209H, Hemoglobin A1c 8.9, Osmolality 370H, Calcium Level 9.9, Total Bilirubin 0.9, Direct Bilirubin 0.5H, Aspartate Amino Transf (AST/SGOT) 77H, Alanine Aminotran sferase (ALT/SGPT) 63, Alkaline Phosphatase 93, Total Creatine Kinase 2919H, Creatine Kinase MB 24.1H, Creatine Kinase MB Relative Index 0.83, Troponin I 0.03, Total Protein 7.9, Albumin 3.1L, Albumin/Globulin Ratio 0.6, Lipase 39L, Thyroid Stimulating Hormone (TSH) 0.666, Free Thyroxine 1.45, Urine Opiates Screen NEGATIVE, Urine Methadone Screen NEGATIVE, Urine Barbiturates Screen NEGATIVE, Urine Phencyclidine Screen NEGATIVE, Urine Amphetamines Screen NEGATIVE, Urine Benzodiazepines Screen NEGATIVE, Urine Cocaine Metabolite Screen NEGATIVE, Urine Cannabinoids Screen NEGATIVE, Ethyl Alcohol Level 0.005, B- Hydroxybutyrate > 46.00H CBC/BMP Laboratory Tests 05/10/20 12:50 Home Medications Scheduled Aspirin (Aspirin EC) 81 Mg Tablet.dr, 81 MG PO DAILY Atorvastatin Calcium (Atorvastatin Calcium) 40 Mg Tab, 20 MG PO Q2D Glipizide (Glipizide) 10 Mg Tablet, 10 MG PO DAILY Insulin Glargine (Lantus) 1 Units/0.01 Ml Susp, 70 UNITS SC DAILY Metformin HCl (Metformin HCl ER) 750 Mg Tab, 1,500 MG PO QPM Multivitamins (Thera M Plus Tablet) 1 Each Tablet, 1 TAB PO DAILY Miscellaneous Medications [Med Rec Comment] LIST OBTAINED FROM PT DAUGHTER, SHE STATES PT HAS NOT HAD MEDS IN APPROX 3 DAYS Allergies Coded Allergies: No Known Allergies (Unverified , 07/02/17) A-FIB/CHADSVASC A-FIB History Current/History of A-Fib/PAF?: No Current PO Anticoag Therapy: No Age/Risk Factor Scoring CHADSVASC: CHADSVASC Response (Comments) Value Age Risk Factor Age >/= 75 years old 2 Gender Risk Factor Male 0 Hx of CHF Yes 1 Hx of HTN No 0 Hx of Stroke/TIA/or VTE No 0 Hx of Diabetes Yes 1 Hx of Vascular Disease No 0 Total 4 Treatment Treatment ordered: NONE NORA GUILLORY MD May 10, 2020 15:51
[2020-05-10] MEDS ORDERED: amLODIPine 10 MG TAB PO ONE (16:15)
[2020-05-10] MEDS ORDERED: LABETALOL 100 MG TAB PO SCH (16:30)
[2020-05-10 16:41] LABS: HEMOGLOBIN A1c 9.3 %
[2020-05-10 17:00] LABS: RSV AMPLIFICATION NEGATIVE (NEGATIVE)
--- NOTE | 2020-05-10 17:41 | ECGEPIP ---
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
[2020-05-10] MEDS: INSULIN IV RATE CHANGE DOCUMENTATION ML/HR XX SCH ×3 (20:00→22:00)
[2020-05-10] MEDS: LABETALOL 100 MG TAB PO SCH ×2 (21:01→22:00)
[2020-05-10] MEDS ORDERED: METOPROLOL 5 MG/5 ML VIAL IV ONE (21:30)
[2020-05-10 23:26] LABS: CALCIUM LEVEL 8.7 MG/DL (8.8-10.2); CREATININE FOR GFR 1.89 MG/DL (0.70-1.30); GLOMERULAR FILTRATION RATE 36.3 (>35); MAGNESIUM LEVEL 2.9 MG/DL (1.8-2.4); POTASSIUM SERUM 4.5 MEQ/L (3.5-5.1); TROPONIN I 0.07 NG/ML (< 0.10)
[2020-05-10 23:28] LABS: ABG BASE EXCESS -4.5 (-2.0-2.0); ABG HCO3 18.2 MEQ/L (22.0-26.0); ABG O2 SATURATION 96.4 % (95.0-99.0); ABG PARTIAL PRESSURE CO2 27.9 mmHg (35.0-45.0); ABG STANDARD HCO3 20.8 MEQ/L (22.0-26.0); ABG pH (ARTERIAL) 7.432 UNITS (7.350-7.450)
--- NOTE | 2020-05-10 23:32 | REPVR ---
PROCEDURE INFORMATION: Exam: US Retroperitoneal Limited, Kidneys Exam date and time: 05/10/2020 11:15 PM Age: 84 years old Clinical indication: Abnormal findings; Abnormal lab test; Abnormal kidney function lab tests; Prior surgery; Surgery date: 6+ months; Surgery type: Urostomy; Additional info: Acute on ckd3 TECHNIQUE: Imaging protocol: Real-time ultrasound of the retroperitoneum with image documentation. Examination was focused on the kidneys. COMPARISON: CT ABD PELVIS W/O FOL BY WIT 06/24/2019 8:58 AM FINDINGS: Right kidney: The right kidney measures 12.0 cm in its cephalocaudad dimension and 6.8 x 6.2 cm in diameter. No mass, cyst or hydronephrosis. Left kidney: The left kidney measures 10.8 cm in its cephalocaudad dimension and 7.0 x 5.3 cm in diameter. No mass, cyst or hydronephrosis. IMPRESSION: Negative renal sonogram. Electronically signed by: Luis Fernando Muller On 05/10/2020 23:32:57 PM
[2020-05-11] VITALS (23 sets, daily range): BP systolic 106–152; BP diastolic 57–80
[2020-05-11] MEDS: INSULIN IV RATE CHANGE DOCUMENTATION ML/HR XX SCH
[2020-05-11] MEDS ORDERED: LEVEMIR (INSULIN DETEMIR) 1 UNITS/0.01ML SC ONE (00:15)
[2020-05-11] MEDS ORDERED: D5W 1,000 ML IV SCH ×2 (00:15)
[2020-05-11] MEDS ORDERED: POTASSIUM PHOSPHATE INJ 30 MMOL in D5W 500 ML IV ONE (00:30)
[2020-05-11] MEDS ORDERED: ENOXAPARIN 80MG/0.8ML SYRINGE (J1650 PER 10MG) SC SCH (01:00)
[2020-05-11 01:56] LABS: INR 1.28; PROTHROMBIN TIME 16.3 SECONDS (12.5-14.3)
[2020-05-11 01:57] LABS: FIBRINOGEN 830 MG/DL (221-452); PARTIAL THROMBOPLASTIN TIME 28.5 SECONDS (24.2-38.5)
[2020-05-11] MEDS ORDERED: VANCOMYCIN HCL 750 MG, VIAL MATE ADAPTER 1 EACH in D5W 250 ML IV ONE ×2 (02:00→03:00)
[2020-05-11] MEDS ORDERED: ACETAMINOPHEN *IV* 1,000 MG in IV 1 EA IV ONE (02:00)
[2020-05-11 02:14] LABS: CALCIUM LEVEL 8.9 MG/DL (8.8-10.2); CREATININE FOR GFR 1.98 MG/DL (0.70-1.30); GLOMERULAR FILTRATION RATE 34.4 (>35); POTASSIUM SERUM 4.7 MEQ/L (3.5-5.1)
[2020-05-11 02:29] LABS: D-DIMER QUANT > 4000 ng/ml (<500)
--- NOTE | 2020-05-11 02:55 | IPNPDOC ---
Date Seen The patient was seen on 05/11/20. Progress Note Called to assess patient due to AMS. HR 130-150, sinus on director of cardiac cath lab. pO2 94 on 3L, RR 50. Febrile 100.8. Patient is not verbalizing. CT head performed earlier showed on CVA. Patient meets SIRS criteria. Started on vanc/cefepime.Blood and urine cultures are pending. Given significant tachypnea and tachycardia with elevated D-dimer> 4000, will start empiric anticoagulation for suspected PE. Noted to have hypernatremia to 159. Stopped IV NS. Switched to D5W. Transitioned to SC insulin, home regimen levemir 70 units sc daily, with ISS. VS, I&O, 24H, Fishbone Vital Signs/I&O Vital Signs Date Time Temp Pulse Resp B/P (MAP) Pulse Ox O2 Delivery O2 Flow Rate FiO2 05/11/20 02:00 104.4 134 44 127/67 (87) 93 Nasal Cannula 3.0 I&O- Last 24 Hours up to 6 AM 05/11/20 06:00 Intake Total 2158 ml Output Total 1310 ml Balance 848 ml Laboratory Data 24H LABS Laboratory Tests 2 05/10/20 12:50: Immature Granulocyte % (Auto) 1.1, Neutrophils (%) (Auto) 83.3H, Lymphocytes (%) (Auto) 7.3L, Monocytes (%) (Auto) 7.8H, Eosinophils (%) (Auto) 0.0, Basophils (%) (Auto) 0.5, Neutrophils # (Auto) 10.2H, Lymphocytes # (Auto) 0.9L, Monocytes # (Auto) 1.0H, Eosinophils # (Auto) 0.0, Basophils # (Auto) 0.1, Nucleated Red Blood Cells % (auto) 0.0, Blood Gas Bicarbonate Standard 13.6, Venous Blood pH 7.269L, Venous Blood Partial Pressure CO2 22.4L, Venous Blood Partial Pressure O2 82.6H, Venous Blood Total Carbon Dioxide 10.7L, Venous Blood HCO3 10.0L, Venous Blood Oxygen Saturation 95.0H, Venous Blood Base Excess -14.5L, Anion Gap 19H, Glomerular Filtration Rate 31.4L, Estimated Mean Plasma Glucose 209H, Hemoglobin A1c 8.9, Osmolality 370H, Calcium Level 9.9, Total Bilirubin 0.9, Direct Bilirubin 0.5H, Aspartate Amino Transf (AST/SGOT) 77H, Alanine Aminotransferase (ALT/SGPT) 63, Alkaline Phosphatase 93, Total Creatine Kinase 2919H, Creatine Kinase MB 24.1H, Creatine Kinase MB Relative Index 0.83, Troponin I 0.03, Total Protein 7.9, Albumin 3.1L, Albumin/Globulin Ratio 0.6, Lipase 39L, Thyroid Stimulating Hormone (TSH) 0.666, Free Thyroxine 1.45, Urine Opiates Screen NEGATIVE, Urine Methadone Screen NEGATIVE, Urine Barbiturates Sc reen NEGATIVE, Urine Phencyclidine Screen NEGATIVE, Urine Amphetamines Screen NEGATIVE, Urine Benzodiazepines Screen NEGATIVE, Urine Cocaine Metabolite Screen NEGATIVE, Urine Cannabinoids Screen NEGATIVE, Ethyl Alcohol Level 0.005, B- Hydroxybutyrate > 46.00H 05/10/20 13:16: Bedside Glucose (Misc Panel) > 600*H 05/10/20 16:08: Coronavirus (COVID-19)(PCR) POSITIVEA, Influenza Type A (RT-PCR) NEGATIVE, Influenza Type B (RT-PCR) NEGATIVE, Respiratory Syncytial Virus (PCR) NEGATIVE 05/10/20 16:14: Estimated Mean Plasma Glucose 220H, Hemoglobin A1c 9.3, Troponin I 0.03 05/10/20 17:25: Bedside Glucose (Misc Panel) 512*H 05/10/20 17:57: Troponin I 0.04# 05/10/20 18:59: Bedside Glucose (Misc Panel) 469H 05/10/20 20:04: Bedside Glucose (Misc Panel) 402H 05/10/20 20:54: Bedside Glucose (Misc Panel) 315H 05/10/20 21:52: Bedside Glucose (Misc Panel) 253H 05/10/20 22:36: Anion Gap 8, Glomerular Filtration Rate 36.3, Osmolality 363H, Calcium Level 8.7L, Phosphorus Level 1.0L, Magnesium Level 2.9H, Troponin I 0.07# 05/10/20 22:51: Bedside Glucose (Misc Panel) 221H 05/10/20 23:22: Blood Gas Bicarbonate Standard 20.8L, Arterial Blood pH 7.432, Arterial Blood Partial Pressure CO2 27.9L, Arterial Blood Partial Pressure O2 79.0, Arterial Blood Total CO2 19.0L, Arterial Blood HCO3 18.2L, Arterial Blood Base Excess - 4.5L, Arterial Blood Oxygen Saturation 96.4 05/11/20 00:01: Bedside Glucose (Misc Panel) 187H 05/11/20 01:00: Urine Color SHILPI, Urine Appearance TURBIDH, Urine pH 9.0, Urine Specific [place] 1.017, Urine Protein 3+H, Urine Glucose (UA) 2+H, Urine Ketones TRACEH, Urine Blood 2+H, Urine Nitrite NEGATIVE, Urine Bilirubin NEGATIVE, Urine Urobilinogen 0.2, Urine Leukocyte Esterase 2+H, Urine WBC (Auto) 7H, Urine RBC (Auto) 1, Urine Hyaline Casts (Auto) 0, Urine Bacteria (Auto) 2+H, Urine Squamous Epithelial Cells 0, Urine Transitional Epithelial Cells 1, Urine Triple Phosphate Cryst (Auto) SMALL, Urine Amorphous Sediment SMALLH, Urine Mucus (Auto) SMALL, Urine Sperm (Auto) 05/11/20 01:11: Bedside Glucose (Misc Panel) 228H 05/11/20 01:35: Prothrombin Time 16.3H, Prothromb Time International Ratio 1.28, Activated Partial Thromboplast Time 28.5, Fibrinogen 830H, D-Dimer, Quantitative > 4000H, Anion Gap 3L, Glomerular Filtration Rate 34.4L, Calcium Level 8.9, Phosphorus Level 1.0L, VB-Lci-B-Type Natriuretic Peptide 392 CBC/BMP Laboratory Tests 05/10/20 12:50 05/10/20 22:36 05/11/20 01:35 Microbiology Microbiology 05/11/20 Urine Culture, Received Pending 05/10/20 Blood Culture, Received Pending 05/10/20 Blood Culture, Received Pending CINDY WILKINSON MD May 11, 2020 02:55
[2020-05-11] MEDS: CEFEPIME HCL 2 GM in D5W MINI-BAG PLUS 50 ML IV SCH (04:31)
[2020-05-11] MEDS ORDERED: LR 1,000 ML IV ONE (05:00)
[2020-05-11] MEDS: LABETALOL 100 MG TAB PO SCH (05:13)
[2020-05-11 06:11] LABS: BASO % 0.1 % (0.0-1.0); HEMATOCRIT 43.2 % (42.0-52.0); HEMOGLOBIN 13.6 g/dl (13.5-17.5); LYMPH # 0.9 10^3/uL (1.5-5.0); LYMPH % 7.2 % (24.0-44.0); MEAN CORPUSCULAR HEMOGLOBIN 29.6 pg (27.0-33.0); MEAN CORPUSCULAR HGB CONC 31.5 g/dl (32.0-36.5); MEAN CORPUSCULAR VOLUME 94.1 fl (80.0-96.0); MONO # 0.9 10^3/uL (0.0-0.8); NEUTROPHILS # 10.3 10^3/uL (1.5-8.5); NEUTROPHILS % 84.3 % (36.0-66.0); PLATELET COUNT, AUTOMATED 352 10^3/uL (150-450); RED BLOOD COUNT 4.59 10^6/uL (4.30-6.10); WHITE BLOOD COUNT 12.2 10^3/uL (4.0-10.0)
[2020-05-11 06:41] LABS: CALCIUM LEVEL 7.9 MG/DL (8.8-10.2); CREATININE FOR GFR 1.95 MG/DL (0.70-1.30); PHOSPHORUS LEVEL 4.9 MG/DL (2.5-4.9); POTASSIUM SERUM 5.1 MEQ/L (3.5-5.1)
[2020-05-11] MEDS ORDERED: INSULIN REGULAR IN 0.9 % NACL 100 UNIT in IV 1 EA IV SCH ×4 (06:50→07:17)
[2020-05-11 06:54] LABS: HEMOGLOBIN A1c 9.1 %
[2020-05-11] MEDS ORDERED: INSULIN IV RATE CHANGE DOCUMENTATION ML/HR XX SCH ×2 (07:00→07:30)
[2020-05-11 07:13] LABS: ACETONE/KETONE 14.33 MG/DL (<2.81); CHOLESTEROL RISK RATIO 5.318 (<5); MAGNESIUM LEVEL 2.7 MG/DL (1.8-2.4)
[2020-05-11] MEDS ORDERED: NS 1,000 ML IV SCH (07:17)
[2020-05-11] MEDS ORDERED: HumuLIN R (REGULAR) INSULIN (NovoLIN R) **100U/ML** PER UNIT IV ONE (07:30)
[2020-05-11] MEDS: NS 0.45% 1,000 ML IV SCH ×2 (07:56→17:00)
[2020-05-11] MEDS ORDERED: GLUCOSE 4GM CHEW TABLET PO PRN (08:30)
[2020-05-11] MEDS ORDERED: GLUCAGON INJ 1MG VIAL SC PRN (08:30)
[2020-05-11] MEDS ORDERED: DEXTROSE 50% 50 ML SYRINGE IV PRN (08:30)
--- NOTE | 2020-05-11 08:35 | REP ---
INDICATION: tachypnea COMPARISON: 05/10/2020, 07/02/2017 TECHNIQUE: Portable AP view of the chest FINDINGS: The mediastinum and cardiac silhouette are stable and within normal limits for portable technique. The lung de leon demonstrate relatively stable chronic changes. Subtle superimposed bibasilar atelectasis cannot be excluded. No effusion. No pneumothorax. Skeletal structures are intact. IMPRESSION: Relatively stable examination similar to multiple prior examinations. Very subtle superimposed atelectasis cannot be excluded. <Electronically signed by Omar Ross > 05/11/20 [id number]
[2020-05-11] MEDS: dexameTHASONE 4 MG/ML 1ML VIAL (J1100 PER 1MG) IV SCH (09:15)
[2020-05-11] MEDS: PANTOPRAZOLE 40MG VIAL (C9113 PER 1) IV SCH (09:15)
[2020-05-11] MEDS: ATORVASTATIN 20 MG TAB PO SCH (09:16)
[2020-05-11] MEDS: ASPIRIN 81 MG ENTERIC TAB PO SCH (09:16)
[2020-05-11] MEDS: MULTIVITAMINS/MINERALS THERAP 1 TAB PO SCH (09:16)
[2020-05-11] MEDS: amLODIPine 10 MG TAB PO SCH (09:16)
--- NOTE | 2020-05-11 09:47 | IPNPDOC ---
Text Note Date of Service The patient was seen on 05/11/20. NOTE SUBJECTIVE: -Had a FINANCIAL AID ADMINISTRATOR overnight for AMS and was noted to be in sinus tachycardia to HR 130- 150, pO2 94 on 3L, RR 50 and febrile to 100.8 --> was empirically started on vanc/cefepime and therapeutic dosing lovenox. -Also gap had closed and was given 70u of levemir at 1AM and fluids were switched to 1/2NS from D5W? and prior had been on NS and LR -This morning denies chest pain, palpitations, remain on 3L PHYSICAL EXAMINATION: VITAL SIGNS: See below GENERAL APPEARANCE: Ill appearing, however without respiratory distress, nasal canula in place, with poor dentition HEENT: Dry mucous membranes. No JVD CARDIOVASCULAR: Tachycardic but regular rhythm, S1, S2, no noted murmurs, rubs or gallops LUNGS: Clear to auscultation. No wheezing, rales or rhonchi. Air entry is equal. ABDOMEN: Normoactive bowel sounds, soft, nontender, nondistended. No rebound or guarding. Has urostomy bag EXTREMITIES: No cyanosis, clubbing or pitting edema NEURO: AOx3, moving all extremities, clear speech LABORATORY DATA: WBC 12.2 Hgb 13.6 platelets 352 Na corrected is 154 K 5.1 Cr 1.[address] [place] [address] IMAGIN05/10/20 CT HEAD FINDINGS: Age-related atrophy with periventricular leukomalacia and microvascular ischemic changes are appreciated. The ventricles and sulci are symmetric. Cornejo-white differentiation is maintained. There is no evidence for acute intracranial hemorrhage, mass/mass effect, pathology or infarction. No extra-axial fluid collection. Calvarium is intact. Paranasal sinuses and mastoid air cells are clear. Incidental 3 cm sebaceous cyst along the posterior midline aspect of the calvarium. IMPRESSION: Age related atrophy and microvascular ischemic changes. No acute intracranial hemorrhage, infarction, or mass/mass effect. 05/10/20 CXR: FINDINGS: There is no acute infiltrate or pulmonary edema. The heart is normal in size. The mediastinal silhouette is unchanged. The visualized osseous structures are unremarkable. IMPRESSION: NO ACUTE PULMONARY DISEASE. MICROBIOLOGY: Please see below. ASSESSMENT: 84-year-old M who lives alone in a one-story home and usually very active at baseline with past medical history significant for type 2 diabetes, bladder CA status post robotic radical cystoscopy prostatectomy June 2017 with urostomy, chronic kidney disease stage III, hyperlipidemia, who was bought in after being found down and now admitted for DKA, renal failure due to rhabdomyolysis, Covid-19 infection with hypoxemic respiratory failure, sepsis likely 2/2 chronic urostomy associated UTI. PLAN: Acute diabetic ketoacidosis like 2/2 sepsis 2/2 UTI and covid-19 infection: -s/p insulin gtt --> gap closed --> got 70u of levemir at 1AM will start SSI and check Q2 FSBG and Q4H BMP for now -high risk for DKA now that he will be receiving steroids for covid-19, may have to restart insulin gtt, but will monitor for now -clears diet for now with plan for consistent carb if glucose continues to downtrend and gap remains closed -hydration with 1/2NS, pending nephrology recs DM: -plan per above with hypoglycemia protocol in place COLIN on CKD 2/2 dehydration, sepsis and rhabdo -fluids, currently on 1/2NS for hypernatremia, monitor CK and BMPs -strict I/Os -has urostomy -nephrology consulted, who will e-consult and leave recs -daily weights -will attempt to get dry CT chest to assess reserve for how aggressive we can get with hydration given concurrent covid-19 infection with already ongoing hypoxemia Acute rhabdomyolysis on chronic kidney disease stage III -Patient will be given intravenous fluids normal saline. -Strict I/Os and daily weights. -Monitor for respiratory distress on fluids. -Avoid nephrotoxins. -Renally dose all medications. History of bladder tumor s/p TURBT robotic radical cystoscopy prostatectomy Jun with urostomy -Urostomy care Sepsis with UTI in the setting of chronic urostomy: -f/u BCx -Fresh UA on urostomy change this AM -continue vanc/cefepime for now, MRSA PCR pending -f/u UCx -f/u dry CT chest -pending procalcitonin Covid-19 infection: -with D-dimer> 4000 with give 40mg BID lovenox -dex 6mg daily given hypoxemia -remdesivir as already started by Dr. 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 -Strict i/os. -Daily weights Deconditioning and debility status post fall at home. -ARU screen once clinically stable -fall precautions. -Activity as tolerated. DVT prophylaxis. Compression stockings and lovenox BID Dispo: pending clinical improvement VS,Fishbone, I+O VS, Fishbone, I+O Laboratory Tests 05/10/20 12:50 05/10/20 22:36 05/11/20 01:35 05/11/20 06:03 Vital Signs Date Time Temp Pulse Resp B/P (MAP) Pulse Ox O2 Delivery O2 Flow Rate FiO2 05/11/20 09:16 92 137/63 05/11/20 06:07 97.4 24 98 Nasal Cannula 3.0 I&O- Last 24 Hours up to 6 AM 05/11/20 05:59 Intake Total 3514 ml Output Total 1370 ml Balance 2144 ml [place] SIMON MD May 11, 2020 09:47
[2020-05-11] MEDS ORDERED: REMDESIVIR 200 MG in NS 250 ML IV ONE (10:00)
[2020-05-11 10:37] LABS: FIBRINOGEN 641 MG/DL (221-452); INR 1.31; PARTIAL THROMBOPLASTIN TIME 27.6 SECONDS (24.2-38.5); PROTHROMBIN TIME 16.6 SECONDS (12.5-14.3)
[2020-05-11 11:04] LABS: D-DIMER QUANT > 4000.0 ng/ml (<500)
[2020-05-11 11:30] LABS: CK-MB VALUE MASS 48.1 NG/ML (<3.6); CPK CREATINE PHOSPHOKINASE 11085 U/L (39-308); FERRITIN 866 NG/ML (26-388); HEPATITIS B SURFACE ANTIGEN NEGATIVE (NEGATIVE); HIV 1&2 SCREEN CENTAUR NEGATIVE (NEGATIVE); LDH LACTATE DEHYDROGENASE 522 U/L (87-241); MB/CK RELATIVE INDEX 0.43 (< OR =4); NT-PRO BNP 488 PG/ML (<450); TRIGLYCERIDES LEVEL 284 MG/DL (<150); TROPONIN I 0.16 NG/ML (< 0.10)
[2020-05-11] MEDS ORDERED: SODIUM CHLORIDE 0.9% INJ 10 ML SYR IV ONE (12:00)
[2020-05-11] MEDS: HumaLOG INSULIN (NovoLOG) PER UNIT SC SCH ×3 (12:05→20:26)
[2020-05-11] MEDS: ENOXAPARIN 40MG/0.4ML SYRINGE (J1650 PER 10MG) SC SCH (12:05)
[2020-05-11 14:04] LABS: ACETONE/KETONE 4.55 MG/DL (<2.81); CALCIUM LEVEL 8.1 MG/DL (8.8-10.2); CREATININE FOR GFR 1.91 MG/DL (0.70-1.30); GLOMERULAR FILTRATION RATE 35.8 (>35); POTASSIUM SERUM 5.2 MEQ/L (3.5-5.1)
[2020-05-11] MEDS ORDERED: VANCOMYCIN HCL 1,000 MG, VIAL MATE ADAPTER 1 EACH in D5W 250 ML IV SCH (16:00)
[2020-05-11 16:45] LABS: CALCIUM LEVEL 8.4 MG/DL (8.8-10.2); CREATININE FOR GFR 1.81 MG/DL (0.70-1.30); GLOMERULAR FILTRATION RATE 38.1 (>35); POTASSIUM SERUM 4.6 MEQ/L (3.5-5.1)
[2020-05-11] MEDS ORDERED: PATIROMER SORBITEX CALCIUM 8.4 GM POWDER PACKET (VELTASSA) PO ONE (18:00)
[2020-05-11] MEDS: LEVEMIR (INSULIN DETEMIR) 1 UNITS/0.01ML SC SCH (20:26)
[2020-05-11] MEDS ORDERED: LEVEMIR (INSULIN DETEMIR) 1 UNITS/0.01ML SC SCH (21:00)
[2020-05-11 21:29] LABS: BASO % 0.2 % (0.0-1.0); HEMATOCRIT 44.3 % (42.0-52.0); HEMOGLOBIN 13.1 g/dl (13.5-17.5); LYMPH # 0.7 10^3/uL (1.5-5.0); LYMPH % 5.9 % (24.0-44.0); MEAN CORPUSCULAR HGB CONC 29.6 g/dl (32.0-36.5); MEAN CORPUSCULAR VOLUME 94.7 fl (80.0-96.0); MONO # 0.4 10^3/uL (0.0-0.8); MONO % 3.2 % (0.0-5.0); NEUTROPHILS # 10.5 10^3/uL (1.5-8.5); NEUTROPHILS % 89.3 % (36.0-66.0); PLATELET COUNT, AUTOMATED 309 10^3/uL (150-450); RED BLOOD COUNT 4.68 10^6/uL (4.30-6.10); WHITE BLOOD COUNT 11.7 10^3/uL (4.0-10.0)
[2020-05-11 21:39] LABS: INR 1.4; PROTHROMBIN TIME 17.5 SECONDS (12.5-14.3)
--- NOTE | 2020-05-11 21:39 | IPN ---
NEPHROLOGY PROGRESS NOTE DATE: 05/11/2020 SUBJECTIVE: Dr. Kennedy called me today for renal recommendations for Mr. Elias Branch. He is an 84-year-old male with a past medical history of bladder cancer status post prostatectomy and urostomy, chronic kidney disease stage 3, diabetes mellitus and dyslipidemia along with diastolic congestive heart failure. He has a baseline creatinine of 1.1. The patient is presently admitted to the [facility] Intensive Care Unit with hypoxic respiratory failure with COVID-19 infection, severely elevated D-dimers, acute diabetic ketoacidosis, urinary tract infection, sepsis, rhabdomyolysis, acute kidney injury, hypernatremia. He presented with an initial anion gap of 20 (when corrected for albumin) and an initial glucose of 611 with a corrected sodium of 155. He was concomitantly hyperkalemic with potassium of 5.5 and had an acute kidney injury with creatinine of 2.1. The patient was admitted and given a variety of fluids including normal saline and lactated Ringer's and was started on an insulin drip and also started on Vancomycin and Cefepime as he met SIRS criteria with tachypnea, tachycardia and leukocytosis, high grade fevers, and he was on nasal cannula for his oxygen requirements, 2-3 liters per minute. Nephrology recommendations were requested in terms of his fluid management in view of his hypernatremia, DKA and acute kidney injury. He also has a CK that has risen from 2,000 to 10,000. MEDICATIONS: Present medications are reviewed and noted. He got a variety of fluids since he came in including lactated Ringer's and normal saline and he is presently on half normal saline at 100 mL an hour, also on Cefepime 2 grams IV daily, was on insulin drip but presently has received Levemir 70 units subcutaneously x1. He received potassium phosphate 30 millimole IV x1. Vancomycin one gram IV daily. Amlodipine 10 mg p.o. daily. Aspirin 81 mg p.o. daily. Lipitor 20 mg p.o. daily. Dexamethasone 6 mg IV daily, Lovenox 40 mg subcutaneously daily. Lopressor 5 mg IV x1, Protonix 40 mg IV daily. LABORATORY STUDIES: Most recent laboratory studies show this morning at 6:00 a.m. glucose of 526, corrected sodium of 154 (initial sodium was 155), potassium 5.1, BUN 46, creatinine 1.9, lactic 3.4, creatinine kinase 10,800, BNP 488. NEPHROLOGY RECOMMENDATIONS: 1. Hypernatremia in this patient with concomitant recent diabetic ketoacidosis - The patient would benefit from hypotonic fluid. Ideally I would love to use d5w, however he recently was in DKA and his gap has just closed overnight. He is also receiving steroids for COVID-19, hypoxic respiratory failure and hence he is not suitable for any dextrose containing fluids. I recommend to continue him at present on half normal saline at 100 mL an hour. I have already spoken to Pharmacy about getting quarter normal saline for him instead and Pharmacy will formulate it, but the earliest it will be available is the morning of May 12. I expect his serum sodium should improve somewhat with half normal saline, and we can continue that until quarter normal saline is available. 2. Rhabdomyolysis his creatinine kinase is rising, but the patient is making adequate urine. Output today is already one liter, and I would continue with hypotonic fluids at this time. His BNP is less than 500. His chest x-ray did not show any sign of pulmonary edema or pulmonary vascular congestion. Continue hypotonic IV fluids at this time and get serial creatine kinase levels. His renal function is mildly improved since he came in. 3. Acute kidney injury on chronic kidney disease stage 2 baseline creatinine is 1.1. The patient has a urostomy. He is making urine. He is status post DKA. He has acute rhabdo. Continue hypotonic fluids at this time. Would continue hypotonic fluids at this time and as he is receiving IV steroids, keep close watch to make sure that his gap does not open again (recent DKA). 4. Sepsis (COVID-19 infection, urinary tract infection) blood cultures are no growth for 24 hours. Urine culture is pending. He is already on broad spectrum empiric antibiotics. His fever curve has lessened. He is hemodynamically stable blood pressure heredia, although he is quite tachycardic. 5. The patient was not seen nor examined by myself. Chart and labs and medications were reviewed and I discussed recommendations in person with Dr. Kennedy. I will follow peripherally. There is no billing for this E-visit.
[2020-05-11 21:40] LABS: PARTIAL THROMBOPLASTIN TIME 34.5 SECONDS (24.2-38.5)
[2020-05-11 21:42] LABS: D-DIMER QUANT 2538.87 ng/ml (<500)
[2020-05-11 22:04] LABS: C REACTIVE PROTEIN QUANTITATIV 18.3 MG/DL (0.00-0.30); TROPONIN I 0.09 NG/ML (< 0.10)
[2020-05-12] VITALS (12 sets, daily range): BP systolic 110–144; BP diastolic 56–76
[2020-05-12] MEDS: ENOXAPARIN 40MG/0.4ML SYRINGE (J1650 PER 10MG) SC SCH ×2 (01:07→12:56)
[2020-05-12] MEDS: NS 0.45% 1,000 ML IV SCH (01:21)
[2020-05-12] MEDS: CEFEPIME HCL 2 GM in D5W MINI-BAG PLUS 50 ML IV SCH (04:52)
[2020-05-12] MEDS: HumaLOG INSULIN (NovoLOG) PER UNIT SC SCH ×4 (07:30→23:11)
[2020-05-12] MEDS: amLODIPine 10 MG TAB PO SCH (09:00)
[2020-05-12 09:18] LABS: BASO % 0.2 % (0.0-1.0); HEMATOCRIT 41.2 % (42.0-52.0); HEMOGLOBIN 12.6 g/dl (13.5-17.5); LYMPH # 0.9 10^3/uL (1.5-5.0); LYMPH % 7.3 % (24.0-44.0); MEAN CORPUSCULAR HEMOGLOBIN 28.4 pg (27.0-33.0); MEAN CORPUSCULAR HGB CONC 30.6 g/dl (32.0-36.5); MEAN CORPUSCULAR VOLUME 92.8 fl (80.0-96.0); MONO # 0.5 10^3/uL (0.0-0.8); MONO % 3.9 % (0.0-5.0); NEUTROPHILS # 11.3 10^3/uL (1.5-8.5); NEUTROPHILS % 87.1 % (36.0-66.0); PLATELET COUNT, AUTOMATED 327 10^3/uL (150-450); RED BLOOD COUNT 4.44 10^6/uL (4.30-6.10); WHITE BLOOD COUNT 12.9 10^3/uL (4.0-10.0)
[2020-05-12 09:58] LABS: INR 1.31; PROTHROMBIN TIME 16.6 SECONDS (12.5-14.3)
[2020-05-12 09:59] LABS: PARTIAL THROMBOPLASTIN TIME 33.2 SECONDS (24.2-38.5)
[2020-05-12 10:01] LABS: D-DIMER QUANT 3656.87 ng/ml (<500)
[2020-05-12 10:10] LABS: ALBUMIN 2.2 GM/DL (3.2-5.2); BILIRUBIN,DIRECT 0.2 MG/DL (0.0-0.2); BILIRUBIN,TOTAL 0.5 MG/DL (0.2-1.0); C REACTIVE PROTEIN QUANTITATIV 15.3 MG/DL (0.00-0.30); CALCIUM LEVEL 8.4 MG/DL (8.8-10.2); CREATININE FOR GFR 1.65 MG/DL (0.70-1.30); GLOMERULAR FILTRATION RATE 42.4 (>35); MAGNESIUM LEVEL 2.3 MG/DL (1.8-2.4); POTASSIUM SERUM 4.8 MEQ/L (3.5-5.1); TOTAL PROTEIN 5.7 GM/DL (6.4-8.2)
[2020-05-12] MEDS: MULTIVITAMINS/MINERALS THERAP 1 TAB PO SCH (10:34)
[2020-05-12] MEDS: ASPIRIN 81 MG ENTERIC TAB PO SCH (10:34)
[2020-05-12] MEDS: ATORVASTATIN 20 MG TAB PO SCH (10:34)
[2020-05-12] MEDS: dexameTHASONE 4 MG/ML 1ML VIAL (J1100 PER 1MG) IV SCH (10:35)
[2020-05-12] MEDS: PANTOPRAZOLE 40MG VIAL (C9113 PER 1) IV SCH (10:35)
[2020-05-12] MEDS: REMDESIVIR 100 MG in NS 250 ML IV SCH (10:36)
[2020-05-12] MEDS: D5W 1,000 ML IV SCH (10:36)
[2020-05-12] MEDS: SODIUM CHLORIDE 0.9% INJ 10 ML SYR IV SCH (12:54)
--- NOTE | 2020-05-12 13:21 | IPNPDOC ---
Text Note Date of Service The patient was seen on 05/12/20. NOTE SUBJECTIVE: -Doing much better this morning. Sitting up in chair. Working with PT, did well. -This morning denies chest pain, palpitations, remain on 2L PHYSICAL EXAMINATION: VITAL SIGNS: See below GENERAL APPEARANCE: Ill appearing, however without respiratory distress, nasal canula in place, with poor dentition HEENT: Moist mucous membranes. No JVD CARDIOVASCULAR: Tachycardic but regular rhythm, S1, S2, no noted murmurs, rubs or gallops LUNGS: Clear to auscultation. No wheezing, rales or rhonchi. Air entry is equal. ABDOMEN: Normoactive bowel sounds, soft, nontender, nondistended. No rebound or guarding. Has urostomy bag EXTREMITIES: No cyanosis, clubbing or pitting edema NEURO: AOx3, moving all extremities, clear speech LABORATORY DATA: reviewed IMAGIN05/10/20 CT HEAD FINDINGS: Age-related atrophy with periventricular leukomalacia and microvascular ischemic changes are appreciated. The ventricles and sulci are symmetric. Cornejo-white differentiation is maintained. There is no evidence for acute intracranial hemorrhage, mass/mass effect, pathology or infarction. No extra-axial fluid collection. Calvarium is intact. Paranasal sinuses and mastoid air cells are clear. Incidental 3 cm sebaceous cyst along the posterior midline aspect of the calvarium. IMPRESSION: Age related atrophy and microvascular ischemic changes. No acute intracranial hemorrhage, infarction, or mass/mass effect. 05/10/20 CXR: FINDINGS: There is no acute infiltrate or pulmonary edema. The heart is normal in size. The mediastinal silhouette is unchanged. The visualized osseous structures are unremarkable. IMPRESSION: NO ACUTE PULMONARY DISEASE. MICROBIOLOGY: Please see below. ASSESSMENT: 84-year-old M who lives alone in a one-story home and usually very active at baseline with past medical history significant for type 2 diabetes, bladder CA status post robotic radical cystoscopy prostatectomy June 2017 with urostomy, chronic kidney disease stage III, hyperlipidemia, who was bought in after being found down and now admitted for DKA, renal failure due to rhabdomyolysis, Covid-19 infection with hypoxemic respiratory failure, sepsis likely 2/2 chronic urostomy associated UTI. PLAN: Acute diabetic ketoacidosis like 2/2 sepsis 2/2 UTI and covid-19 infection: resolved -s/p insulin gtt --> gap closed --> now on 80u QHS levemir -high risk for DKA now that he will be receiving steroids for covid-19 -consistent carb diet -hydration with D5W per nephrology recs for hyponatremia DM: -plan per above with hypoglycemia protocol in place -FSBG AC/HS -SSI AC/HS -levemir 80u levemir QHS COLIN on CKD 2/2 dehydration, sepsis and rhabdo -fluids, currently on D5W for hypernatremia, monitor CK (downtrending) and daily BMPs -strict I/Os -has urostomy -nephrology e-consulted, appreciate recs -daily weights Acute rhabdomyolysis on chronic kidney disease stage III: improving with hydration -Strict I/Os and daily weights. -Monitor for respiratory distress on fluids. -Avoid nephrotoxins. -Renally dose all medications -continue hydration per nephrology recs History of bladder tumor s/p TURBT robotic radical cystoscopy prostatectomy June 2017 with urostomy -Urostomy care Sepsis with UTI in the setting of chronic urostomy: -f/u BCx -Fresh UA on urostomy change this AM -continue cefepime for now, DC vanc, MRSA negative. Day #2 cefepime -f/u UCx -elevated procalcitonin so there is possible bacterial PNA as well that should be covered by cefepime Covid-19 infection: -with D-dimer> 4000 with give 40mg BID lovenox -dex 6mg daily given hypoxemia, day 2 -remdesivir as already started by Dr. Levin, today is day #2 -strict covid labs per protocol -supplemental oxygen with goal >92% -incentive spirometry -droplet precautions HLD: -continue home statin at daily dosing Grade 1 LV diastolic CHF, compensated -euvolemic on exam -Strict i/os. -Daily weights Deconditioning and debility status post fall at home. -ARU screen once clinically stable -fall precautions. -Activity as tolerated. DVT prophylaxis. Compression stockings and lovenox BID Dispo: Medsurg, 4 main VS,Fishbone, I+O VS, Fishbone, I+O Laboratory Tests 05/11/20 13:07 05/11/20 16:14 05/11/20 21:12 Vital Signs Date Time Temp Pulse Resp B/P (MAP) Pulse Ox O2 Delivery O2 Flow Rate FiO2 05/12/20 06:00 80 26 118/56 (76) 95 Nasal Cannula 2.0 05/12/20 04:00 98.7 I&O- Last 24 Hours up to 6 AM 05/12/20 06:00 Intake Total 3660 ml Output Total 1775 ml Balance 1885 ml [place] SIMON MD May 12, 2020 08:02
[2020-05-12] MEDS: LEVEMIR (INSULIN DETEMIR) 1 UNITS/0.01ML SC SCH (23:14)
--- NOTE | 2020-05-12 23:54 | IPN ---
NEPHROLOGY PROGRESS NOTE DATE: 05/12/2020 SUBJECTIVE: Chart reviewed and previous 24 hour events noted. The patient has stable oxygen requirements and continues on 2 liters nasal cannula. He has been afebrile the past 24 hours and he hemodynamically stable. His urine output in the past 24 hours is 1,200 mL and he is positive 2.6 liters. His laboratory studies show improvement in serum sodium, now down to 153 and improvement in renal function with creatinine down from 2.1 to 1.6 today. His creatine kinase has also decreased appreciably from a peak of 11,000 down to 3,600 today. His gap remains closed. He has been on half normal saline at 100 mL an hour, and he remains on broad-spectrum antibiotics and IV steroids and systemic anticoagulation. There was no chest x-ray that was done today. NEPHROLOGY RECOMMENDATIONS: The patient's acute kidney injury is improving. His anion gap remains closed. His rhabdomyolysis shows improvement as well with significant decrease in creatine kinase level. Given that his sugars are controlled, at this point I suggest that we switch to d5w for further correction of his hypernatremia. I am going to cut the rate of the fluids down to 75 mL an hour because he is positive 2.6 liters in the past 24 hours, although I do note his oxygen requirements remain stable with only 2 liters of nasal cannula. I will further cut the fluids down later this evening, and I suggest that the patient should have a daily chest x-ray given history of diastolic congestive heart failure, present COVID infection, present need for IV fluids given acute kidney injury with free water deficit. Recommendations were discussed on the phone this morning with Dr. Kennedy.
[2020-05-13] MEDS: D5W 1,000 ML IV SCH (01:48)
[2020-05-13] MEDS: ENOXAPARIN 40MG/0.4ML SYRINGE (J1650 PER 10MG) SC SCH ×2 (01:48→13:10)
[2020-05-13] MEDS: CEFEPIME HCL 2 GM in D5W MINI-BAG PLUS 50 ML IV SCH (04:51)
[2020-05-13 05:00] VITALS: BP 126/86
[2020-05-13 07:22] LABS: BASO % 0.2 % (0.0-1.0); HEMATOCRIT 37.8 % (42.0-52.0); HEMOGLOBIN 11.9 g/dl (13.5-17.5); LYMPH # 0.8 10^3/uL (1.5-5.0); LYMPH % 7.8 % (24.0-44.0); MEAN CORPUSCULAR HGB CONC 31.5 g/dl (32.0-36.5); MONO # 0.4 10^3/uL (0.0-0.8); MONO % 3.9 % (0.0-5.0); NEUTROPHILS # 8.7 10^3/uL (1.5-8.5); NEUTROPHILS % 86.3 % (36.0-66.0); PLATELET COUNT, AUTOMATED 298 10^3/uL (150-450); RED BLOOD COUNT 4.11 10^6/uL (4.30-6.10)
[2020-05-13] MEDS: HumaLOG INSULIN (NovoLOG) PER UNIT SC SCH ×4 (07:30→21:00)
[2020-05-13 07:47] LABS: INR 1.25
[2020-05-13 07:49] LABS: PARTIAL THROMBOPLASTIN TIME 34.9 SECONDS (24.2-38.5)
[2020-05-13 07:55] LABS: D-DIMER QUANT 2762.07 ng/ml (<500)
[2020-05-13 08:11] LABS: BILIRUBIN,DIRECT 0.2 MG/DL (0.0-0.2); BILIRUBIN,TOTAL 0.4 MG/DL (0.2-1.0); C REACTIVE PROTEIN QUANTITATIV 7.23 MG/DL (0.00-0.30); CALCIUM LEVEL 7.9 MG/DL (8.8-10.2); CREATININE FOR GFR 1.5 MG/DL (0.70-1.30); GLOMERULAR FILTRATION RATE 47.4 (>35); MAGNESIUM LEVEL 2.3 MG/DL (1.8-2.4); POTASSIUM SERUM 5.1 MEQ/L (3.5-5.1); TOTAL PROTEIN 5.2 GM/DL (6.4-8.2)
[2020-05-13] MEDS: dexameTHASONE 4 MG/ML 1ML VIAL (J1100 PER 1MG) IV SCH (08:55)
[2020-05-13] MEDS: PANTOPRAZOLE 40MG VIAL (C9113 PER 1) IV SCH (08:55)
[2020-05-13] MEDS: amLODIPine 10 MG TAB PO SCH (08:56)
[2020-05-13] MEDS: MULTIVITAMINS/MINERALS THERAP 1 TAB PO SCH (08:56)
[2020-05-13] MEDS: ASPIRIN 81 MG ENTERIC TAB PO SCH (08:56)
[2020-05-13] MEDS: ATORVASTATIN 20 MG TAB PO SCH (08:56)
[2020-05-13] MEDS: SODIUM CHLORIDE 0.9% INJ 10 ML SYR IV SCH (10:39)
[2020-05-13] MEDS: REMDESIVIR 100 MG in NS 250 ML IV SCH (10:39)
--- NOTE | 2020-05-13 14:32 | IPNPDOC ---
Text Note Date of Service The patient was seen on 05/13/20. NOTE SUBJECTIVE: -Continues to feel better. However now on 4L NC from 2L yesterday. -Fluids were stopped by nephrology with resolution of hyperNa and COLIN -This morning denies chest pain, palpitations PHYSICAL EXAMINATION: VITAL SIGNS: See below GENERAL APPEARANCE: Ill appearing, however without respiratory distress, nasal canula in place, with poor dentition HEENT: Moist mucous membranes. No JVD CARDIOVASCULAR: Tachycardic but regular rhythm, S1, S2, no noted murmurs, rubs or gallops LUNGS: Clear to auscultation. No wheezing, no rales or rhonchi. Air entry is equal. ABDOMEN: Normoactive bowel sounds, soft, nontender, nondistended. No rebound or guarding. Has urostomy bag EXTREMITIES: No cyanosis, clubbing or pitting edema NEURO: AOx3, moving all extremities, clear speech LABORATORY DATA: reviewed Na 142 K 5.1 Cr 1.5 glucose 263 WBC 10 Hgb 11.9 platelets 298 Ddimer 2762 IMAGIN05/10/20 CT HEAD FINDINGS: Age-related atrophy with periventricular leukomalacia and microvascular ischemic changes are appreciated. The ventricles and sulci are symmetric. Cornejo-white differentiation is maintained. There is no evidence for acute intracranial hemorrhage, mass/mass effect, pathology or infarction. No extra-axial fluid collection. Calvarium is intact. Paranasal sinuses and mastoid air cells are clear. Incidental 3 cm sebaceous cyst along the posterior midline aspect of the calvarium. IMPRESSION: Age related atrophy and microvascular ischemic changes. No acute intracranial hemorrhage, infarction, or mass/mass effect. 05/10/20 CXR: FINDINGS: There is no acute infiltrate or pulmonary edema. The heart is normal in size. The mediastinal silhouette is unchanged. The visualized osseous structures are unremarkable. IMPRESSION: NO ACUTE PULMONARY DISEASE. MICROBIOLOGY: Please see below. ASSESSMENT: 84-year-old M who lives alone in a one-story home and usually very active at baseline with past medical history significant for type 2 diabetes, bladder CA status post robotic radical cystoscopy prostatectomy June 2017 with urostomy, chronic kidney disease stage III, hyperlipidemia, who was bought in after being found down and now admitted for DKA, renal failure due to rhabdomyolysis, Covid-19 infection with hypoxemic respiratory failure, sepsis likely 2/2 chronic urostomy associated UTI. PLAN: Acute diabetic ketoacidosis like 2/2 sepsis 2/2 UTI and covid-19 infection: resolved -s/p insulin gtt --> gap closed --> now on 80u QHS levemir -high risk for DKA now that he will be receiving steroids for covid-19 -consistent carb diet -FSBG AC/HS, SSI AC/HS, hypoglycemia protocol DM: -plan per above COLIN on CKD 2/2 dehydration, sepsis and rhabdo: resolved, back to recent baseline -s/p fluids -strict I/Os -has urostomy -nephrology e-consulted, appreciate recs. Signed off today -daily weights Acute rhabdomyolysis on chronic kidney disease stage III: improving with hydration -Strict I/Os and daily weights. -Monitor for respiratory distress on fluids. -Avoid nephrotoxins. -Renally dose all medications History of bladder tumor s/p TURBT robotic radical cystoscopy prostatectomy June 2017 with urostomy -Urostomy care Sepsis with UTI in the setting of chronic urostomy: -f/u BCx -Fresh UA on urostomy change this AM -Discontinue cefepime , day 3 of abx, will switch to PO cipro for providencia UTI -elevated procalcitonin so there is possible bacterial PNA as well that should be covered by abx above Covid-19 infection: -with initial D-dimer> 4000 with give 40mg BID lovenox -dex 6mg daily given hypoxemia, day 3 -remdesivir as already started by Dr. Levin, today is day #3 -strict covid labs per protocol -supplemental oxygen with goal >92% -incentive spirometry -droplet precautions HLD: -continue home statin at daily dosing Grade 1 LV diastolic CHF, compensated -euvolemic on exam -Strict i/os. -Daily weights Deconditioning and debility status post fall at home. -ARU screen once clinically stable -fall precautions. -Activity as tolerated. DVT prophylaxis. Compression stockings and lovenox BID Dispo: Medsurg, 4 main VS,Fishbone, I+O VS, Fishbone, I+O Laboratory Tests 05/13/20 06:56 Vital Signs Date Time Temp Pulse Resp B/P (MAP) Pulse Ox O2 Delivery O2 Flow Rate FiO2 05/13/20 08:56 62 130/78 05/13/20 05:00 96.1 22 95 Nasal Cannula 4.0 I&O- Last 24 Hours up to 6 AM 05/13/20 06:00 Intake Total 2780 ml Output Total 1610 ml Balance 1170 ml MONTANA SIMON MD May 13, 2020 10:06
[2020-05-13] MEDS: CIPROFLOXACIN 250MG TAB PO SCH (17:36)
[2020-05-13 22:00] VITALS: BP 135/63
[2020-05-13] MEDS: LEVEMIR (INSULIN DETEMIR) 1 UNITS/0.01ML SC SCH (22:59)
[2020-05-14] MEDS: ENOXAPARIN 40MG/0.4ML SYRINGE (J1650 PER 10MG) SC SCH ×2 (02:05→12:34)
[2020-05-14 06:37] VITALS: BP 127/62
[2020-05-14] MEDS: CIPROFLOXACIN 250MG TAB PO SCH ×2 (06:37→17:48)
[2020-05-14] MEDS: HumaLOG INSULIN (NovoLOG) PER UNIT SC SCH ×4 (07:30→21:00)
[2020-05-14 09:07] LABS: BASO % 0.4 % (0.0-1.0); HEMATOCRIT 40.3 % (42.0-52.0); HEMOGLOBIN 12.6 g/dl (13.5-17.5); LYMPH # 0.7 10^3/uL (1.5-5.0); LYMPH % 6.9 % (24.0-44.0); MEAN CORPUSCULAR HEMOGLOBIN 28.4 pg (27.0-33.0); MEAN CORPUSCULAR HGB CONC 31.3 g/dl (32.0-36.5); MONO # 0.6 10^3/uL (0.0-0.8); NEUTROPHILS # 8.9 10^3/uL (1.5-8.5); NEUTROPHILS % 84.9 % (36.0-66.0); PLATELET COUNT, AUTOMATED 330 10^3/uL (150-450); RED BLOOD COUNT 4.43 10^6/uL (4.30-6.10); WHITE BLOOD COUNT 10.5 10^3/uL (4.0-10.0)
[2020-05-14 09:46] LABS: ALBUMIN 2.1 GM/DL (3.2-5.2); BILIRUBIN,DIRECT 0.2 MG/DL (0.0-0.2); BILIRUBIN,TOTAL 0.5 MG/DL (0.2-1.0); C REACTIVE PROTEIN QUANTITATIV 3.78 MG/DL (0.00-0.30); CALCIUM LEVEL 8.1 MG/DL (8.8-10.2); CREATININE FOR GFR 1.36 MG/DL (0.70-1.30); MAGNESIUM LEVEL 2.2 MG/DL (1.8-2.4); POTASSIUM SERUM 4.5 MEQ/L (3.5-5.1); TOTAL PROTEIN 5.4 GM/DL (6.4-8.2)
[2020-05-14] MEDS: ASPIRIN 81 MG ENTERIC TAB PO SCH (09:48)
[2020-05-14] MEDS: PANTOPRAZOLE 40MG VIAL (C9113 PER 1) IV SCH (09:53)
[2020-05-14] MEDS: REMDESIVIR 100 MG in NS 250 ML IV SCH (09:53)
[2020-05-14] MEDS: amLODIPine 10 MG TAB PO SCH (09:53)
[2020-05-14] MEDS: MULTIVITAMINS/MINERALS THERAP 1 TAB PO SCH (09:53)
[2020-05-14] MEDS: ATORVASTATIN 20 MG TAB PO SCH (09:53)
[2020-05-14 09:54] LABS: INR 1.25
[2020-05-14 09:55] LABS: PARTIAL THROMBOPLASTIN TIME 32.7 SECONDS (24.2-38.5)
[2020-05-14 09:59] LABS: D-DIMER QUANT 2523.82 ng/ml (<500)
[2020-05-14] MEDS: SODIUM CHLORIDE 0.9% INJ 10 ML SYR IV SCH (11:20)
[2020-05-14 12:00] VITALS: BP 122/65
--- NOTE | 2020-05-14 14:56 | IPNPDOC ---
Text Note Date of Service The patient was seen on 05/14/20. NOTE SUBJECTIVE: -Continues to feel better than when he presented but feels significantly weaker than his baseline. However now on 4L NC -This morning denies chest pain, palpitations PHYSICAL EXAMINATION: VITAL SIGNS: See below GENERAL APPEARANCE: Ill appearing, however without respiratory distress, nasal canula in place, with poor dentition HEENT: Moist mucous membranes. No JVD CARDIOVASCULAR: Tachycardic but regular rhythm, S1, S2, no noted murmurs, rubs or gallops LUNGS: Clear to auscultation. No wheezing, no rales or rhonchi. Air entry is equal. ABDOMEN: Normoactive bowel sounds, soft, nontender, nondistended. No rebound or guarding. Has urostomy bag EXTREMITIES: No cyanosis, clubbing or pitting edema NEURO: AOx3, moving all extremities, clear speech LABORATORY DATA: reviewed IMAGIN05/10/20 CT HEAD FINDINGS: Age-related atrophy with periventricular leukomalacia and microvascular ischemic changes are appreciated. The ventricles and sulci are symmetric. Cornejo-white differentiation is maintained. There is no evidence for acute intracranial hemorrhage, mass/mass effect, pathology or infarction. No extra-axial fluid collection. Calvarium is intact. Paranasal sinuses and mastoid air cells are clear. Incidental 3 cm sebaceous cyst along the posterior midline aspect of the calvarium. IMPRESSION: Age related atrophy and microvascular ischemic changes. No acute intracranial hemorrhage, infarction, or mass/mass effect. 05/10/20 CXR: FINDINGS: There is no acute infiltrate or pulmonary edema. The heart is normal in size. The mediastinal silhouette is unchanged. The visualized osseous structures are unremarkable. IMPRESSION: NO ACUTE PULMONARY DISEASE. MICROBIOLOGY: Please see below. ASSESSMENT: 84-year-old M who lives alone in a one-story home and usually very active at baseline with past medical history significant for type 2 diabetes, bladder CA status post robotic radical cystoscopy prostatectomy June 2017 with urostomy, chronic kidney disease stage III, hyperlipidemia, who was bought in after being found down and now admitted for DKA, renal failure due to rhabdomyolysis, Covid-19 infection with hypoxemic respiratory failure, sepsis likely 2/2 chronic urostomy associated UTI. PLAN: Acute diabetic ketoacidosis like 2/2 sepsis 2/2 UTI and covid-19 infection: resolved -s/p insulin gtt --> gap closed --> now on 80u QHS levemir -high risk for DKA now that he will be receiving steroids for covid-19 -consistent carb diet -FSBG AC/HS, SSI AC/HS, hypoglycemia protocol DM: -plan per above COLIN on CKD 2/2 dehydration, sepsis and rhabdo: resolved, back to recent baseline -s/p fluids -strict I/Os -has urostomy -nephrology e-consulted, appreciate recs. Signed off today -daily weights Acute rhabdomyolysis on chronic kidney disease stage III: continues to improve -Strict I/Os and daily weights. -s/p fluids -Avoid nephrotoxins. -Renally dose all medications History of bladder tumor s/p TURBT robotic radical cystoscopy prostatectomy June 2017 with urostomy -Urostomy care Sepsis with UTI in the setting of chronic urostomy: -f/u BCx -Fresh UA on urostomy change this AM -PO cipro for providencia UTI, day 4 -elevated procalcitonin so there is possible bacterial PNA as well that should be covered by abx above Covid-19 infection: -with initial D-dimer> 4000 with give 40mg BID lovenox -dex 6mg daily given hypoxemia, day 3 -remdesivir as already started by Dr. Levin, today is day #3 -strict covid labs per protocol -supplemental oxygen with goal >92% -incentive spirometry -droplet precautions HLD: -continue home statin at daily dosing Grade 1 LV diastolic CHF, compensated -euvolemic on exam -Strict i/os. -Daily weights -f/u pro-BNP Deconditioning and debility status post fall at home. -ARU screen once clinically stable -fall precautions. -Activity as tolerated. -cont PT/OT DVT prophylaxis. Compression stockings and lovenox BID Dispo: Medsurg, 4 main VS,Fishbone, I+O VS, Fishbone, I+O Vital Signs Date Time Temp Pulse Resp B/P (MAP) Pulse Ox O2 Delivery O2 Flow Rate FiO2 05/14/20 06:37 97.1 89 20 127/62 (83) 92 Nasal Cannula 4.0 I&O- Last 24 Hours up to 6 AM0 05/14/20 06:00 Intake Total 2100 ml Output Total 1150 ml Balance 950 ml [id number],MONTANA V. MD May 14, 2020 08:57
[2020-05-14 20:53] VITALS: BP 127/67
[2020-05-14] MEDS: LEVEMIR (INSULIN DETEMIR) 1 UNITS/0.01ML SC SCH (21:00)
[2020-05-15] VITALS: BP 120/70
[2020-05-15] MEDS: ENOXAPARIN 40MG/0.4ML SYRINGE (J1650 PER 10MG) SC SCH ×2 (01:00→13:33)
[2020-05-15 04:30] VITALS: BP 115/68
[2020-05-15] MEDS: CIPROFLOXACIN 250MG TAB PO SCH ×2 (05:33→18:12)
[2020-05-15 06:50] LABS: BASO % 0.4 % (0.0-1.0); EOS % 0.1 % (0.0-3.0); HEMATOCRIT 40.2 % (42.0-52.0); HEMOGLOBIN 12.4 g/dl (13.5-17.5); LYMPH # 1.2 10^3/uL (1.5-5.0); LYMPH % 11.6 % (24.0-44.0); MEAN CORPUSCULAR HEMOGLOBIN 28.2 pg (27.0-33.0); MEAN CORPUSCULAR HGB CONC 30.8 g/dl (32.0-36.5); MEAN CORPUSCULAR VOLUME 91.4 fl (80.0-96.0); MONO # 0.9 10^3/uL (0.0-0.8); MONO % 8.4 % (0.0-5.0); NEUTROPHILS # 8.1 10^3/uL (1.5-8.5); NEUTROPHILS % 77.4 % (36.0-66.0); PLATELET COUNT, AUTOMATED 362 10^3/uL (150-450); WHITE BLOOD COUNT 10.4 10^3/uL (4.0-10.0)
[2020-05-15 07:05] LABS: INR 1.21; PARTIAL THROMBOPLASTIN TIME 34.7 SECONDS (24.2-38.5); PROTHROMBIN TIME 15.6 SECONDS (12.5-14.3)
[2020-05-15 07:08] LABS: D-DIMER QUANT 1932.28 ng/ml (<500)
[2020-05-15 07:14] LABS: BILIRUBIN,DIRECT 0.2 MG/DL (0.0-0.2); BILIRUBIN,TOTAL 0.6 MG/DL (0.2-1.0); C REACTIVE PROTEIN QUANTITATIV 3.65 MG/DL (0.00-0.30); CALCIUM LEVEL 8.2 MG/DL (8.8-10.2); CREATININE FOR GFR 1.45 MG/DL (0.70-1.30); GLOMERULAR FILTRATION RATE 49.2 (>35); TOTAL PROTEIN 5.3 GM/DL (6.4-8.2)
[2020-05-15] MEDS: HumaLOG INSULIN (NovoLOG) PER UNIT SC SCH ×4 (07:30→21:00)
[2020-05-15 08:00] VITALS: BP 121/63
[2020-05-15] MEDS: PANTOPRAZOLE 40MG VIAL (C9113 PER 1) IV SCH (09:27)
[2020-05-15] MEDS: ASPIRIN 81 MG ENTERIC TAB PO SCH (09:27)
[2020-05-15] MEDS: MULTIVITAMINS/MINERALS THERAP 1 TAB PO SCH (09:29)
[2020-05-15] MEDS: ATORVASTATIN 20 MG TAB PO SCH (09:29)
[2020-05-15] MEDS: amLODIPine 10 MG TAB PO SCH (09:29)
[2020-05-15] MEDS: REMDESIVIR 100 MG in NS 250 ML IV SCH (09:41)
[2020-05-15] MEDS: SODIUM CHLORIDE 0.9% INJ 10 ML SYR IV SCH (11:11)
--- NOTE | 2020-05-15 15:41 | IPNPDOC ---
Text Note Date of Service The patient was seen on 05/15/20. NOTE SUBJECTIVE: -Remains on 4L NC, significantly weak, aware that he likely will be requiring rehab before getting home -This morning denies chest pain, palpitations PHYSICAL EXAMINATION: VITAL SIGNS: See below GENERAL APPEARANCE: Ill appearing, however without respiratory distress, nasal canula in place, with poor dentition HEENT: Moist mucous membranes. No JVD CARDIOVASCULAR: Tachycardic but regular rhythm, S1, S2, no noted murmurs, rubs or gallops LUNGS: Diminished, with poor effort this morning, no wheezing, no rales or rhonchi. ABDOMEN: Normoactive bowel sounds, soft, nontender, nondistended. No rebound or guarding. Has urostomy bag EXTREMITIES: No cyanosis, clubbing or pitting edema NEURO: AOx3, moving all extremities, clear speech LABORATORY DATA: reviewed IMAGIN05/10/20 CT HEAD FINDINGS: Age-related atrophy with periventricular leukomalacia and microvascular ischemic changes are appreciated. The ventricles and sulci are symmetric. Cornejo-white differentiation is maintained. There is no evidence for acute intracranial hemorrhage, mass/mass effect, pathology or infarction. No extra-axial fluid collection. Calvarium is intact. Paranasal sinuses and mastoid air cells are clear. Incidental 3 cm sebaceous cyst along the posterior midline aspect of the calvarium. IMPRESSION: Age related atrophy and microvascular ischemic changes. No acute intracranial hemorrhage, infarction, or mass/mass effect. 05/10/20 CXR: FINDINGS: There is no acute infiltrate or pulmonary edema. The heart is normal in size. The mediastinal silhouette is unchanged. The visualized osseous structures are unremarkable. IMPRESSION: NO ACUTE PULMONARY DISEASE. MICROBIOLOGY: Please see below. ASSESSMENT: 84-year-old M who lives alone in a one-story home and usually very active at baseline with past medical history significant for type 2 diabetes, bladder CA status post robotic radical cystoscopy prostatectomy June 2017 with urostomy, chronic kidney disease stage III, hyperlipidemia, who was bought in after being found down and now admitted for DKA, renal failure due to rhabdomyolysis, Covid-19 infection with hypoxemic respiratory failure, sepsis likely 2/2 chronic urostomy associated UTI. PLAN: Acute diabetic ketoacidosis like 2/2 sepsis 2/2 UTI and covid-19 infection: resolved -s/p insulin gtt --> gap closed --> now on 80u QHS levemir. Will reduce to 60u levemir with fasting sugar of 80 this morning, now that he is s/p steroids -high risk for DKA now that he will be receiving steroids for covid-19 -consistent carb diet -FSBG AC/HS, SSI AC/HS, hypoglycemia protocol DM: -plan per above COLIN on CKD 2/2 dehydration, sepsis and rhabdo: resolved, back to recent baseline -s/p fluids -strict I/Os -has urostomy -nephrology e-consulted, appreciate recs. Signed off today -daily weights Acute rhabdomyolysis on chronic kidney disease stage III: continues to improve -Strict I/Os and daily weights. -s/p fluids -Avoid nephrotoxins. -Renally dose all medications History of bladder tumor s/p TURBT robotic radical cystoscopy prostatectomy Fe 2017 with urostomy -Urostomy care Sepsis with UTI in the setting of chronic urostomy: -f/u BCx -Fresh UA on urostomy change this AM -PO cipro for providencia UTI, day 5. Will dc today. -elevated procalcitonin so there is possible bacterial PNA as well that should be covered by abx above Covid-19 PNA: -with initial D-dimer> 4000, on 40mg BID lovenox -s/p 3d of dex 6mg daily -remdesivir, day #4 -strict covid labs per protocol -supplemental oxygen with goal >92% -incentive spirometry -droplet precautions HLD: -continue home statin at daily dosing Grade 1 LV diastolic CHF, compensated -euvolemic on exam -Strict i/os. -Daily weights Deconditioning and debility status post fall at home. -ARU screen once clinically stable -fall precautions. -Activity as tolerated. -cont PT/OT, will need rehab DVT prophylaxis. Compression stockings and lovenox BID Dispo: Medsurg, 4 main VS,Fishbone, I+O VS, Fishbone, I+O Laboratory Tests 05/15/20 06:25 Vital Signs Date Time Temp Pulse Resp B/P (MAP) Pulse Ox O2 Delivery O2 Flow Rate FiO2 05/15/20 04:30 96.7 61 18 115/68 (84) 95 Nasal Cannula 4.0 I&O- Last 24 Hours up to 6 AM 05/15/20 06:00 Intake Total 1770 ml Output Total 1560 ml Balance 210 ml MONTANA SIMON MD May 15, 2020 08:38
[2020-05-15 16:30] VITALS: BP 121/56
[2020-05-15 20:00] VITALS: BP 108/58
[2020-05-15] MEDS ORDERED: LEVEMIR (INSULIN DETEMIR) 1 UNITS/0.01ML SC SCH (21:00)
[2020-05-16] MEDS: ENOXAPARIN 40MG/0.4ML SYRINGE (J1650 PER 10MG) SC SCH ×2 (01:15→13:29)
[2020-05-16 04:00] VITALS: BP 115/64
[2020-05-16] MEDS: CIPROFLOXACIN 250MG TAB PO SCH (05:39)
[2020-05-16] MEDS: HumaLOG INSULIN (NovoLOG) PER UNIT SC SCH ×4 (07:30→21:00)
[2020-05-16] MEDS: ASPIRIN 81 MG ENTERIC TAB PO SCH (09:49)
[2020-05-16] MEDS: amLODIPine 10 MG TAB PO SCH (09:49)
[2020-05-16] MEDS: ATORVASTATIN 20 MG TAB PO SCH (09:49)
[2020-05-16] MEDS: MULTIVITAMINS/MINERALS THERAP 1 TAB PO SCH (09:49)
[2020-05-16] MEDS: PANTOPRAZOLE 40MG VIAL (C9113 PER 1) IV SCH (09:49)
[2020-05-16 10:47] LABS: HEMATOCRIT 41.6 % (42.0-52.0); HEMOGLOBIN 13.2 g/dl (13.5-17.5); MEAN CORPUSCULAR HGB CONC 31.7 g/dl (32.0-36.5); MEAN CORPUSCULAR VOLUME 91.4 fl (80.0-96.0); PLATELET COUNT, AUTOMATED 277 10^3/uL (150-450); RED BLOOD COUNT 4.55 10^6/uL (4.30-6.10); WHITE BLOOD COUNT 9.2 10^3/uL (4.0-10.0)
[2020-05-16 11:06] LABS: INR 1.28; PARTIAL THROMBOPLASTIN TIME 34.4 SECONDS (24.2-38.5); PROTHROMBIN TIME 16.2 SECONDS (12.5-14.3)
[2020-05-16 11:09] LABS: D-DIMER QUANT 1442.13 ng/ml (<500)
[2020-05-16 11:24] LABS: BILIRUBIN,DIRECT 0.2 MG/DL (0.0-0.2); BILIRUBIN,TOTAL 0.6 MG/DL (0.2-1.0); C REACTIVE PROTEIN QUANTITATIV 10.8 MG/DL (0.00-0.30); CALCIUM LEVEL 8.2 MG/DL (8.8-10.2); CREATININE FOR GFR 1.36 MG/DL (0.70-1.30); MAGNESIUM LEVEL 2.1 MG/DL (1.8-2.4); POTASSIUM SERUM 3.8 MEQ/L (3.5-5.1); TOTAL PROTEIN 5.6 GM/DL (6.4-8.2)
[2020-05-16 11:36] LABS: ATYPICAL LYMPH 6 % (0-5); LYMPHOCYTES 8 % (16-44); MONOCYTES 5 % (0-5); NEUTROPHILS 81 % (28-66)
[2020-05-16 11:37] LABS: PLATELET ESTIMATE NORMAL (NORMAL)
--- NOTE | 2020-05-16 15:00 | IPNPDOC ---
Text Note Date of Service The patient was seen on 05/16/20. NOTE SUBJECTIVE: -Remains on 4L NC, reports feeling well -This morning denies chest pain, palpitations PHYSICAL EXAMINATION: VITAL SIGNS: See below GENERAL APPEARANCE: NAD, nasal canula in place, eating breakfast in bed HEENT: Moist mucous membranes. No JVD CARDIOVASCULAR: Tachycardic but regular rhythm, S1, S2, no noted murmurs, rubs or gallops LUNGS: Diminished, no wheezing, no rales or rhonchi. ABDOMEN: Normoactive bowel sounds, soft, nontender, nondistended. No rebound or guarding. Has urostomy bag iwth clear yellow urine EXTREMITIES: No cyanosis, clubbing or pitting edema NEURO: AOx3, moving all extremities, clear speech LABORATORY DATA: reviewed. Downtrending inflammatory markers except for CRP that uptrended to 10.8 from 3.65 IMAGIN05/10/20 CT HEAD FINDINGS: Age-related atrophy with periventricular leukomalacia and microvascular ischemic changes are appreciated. The ventricles and sulci are symmetric. Cornejo-white differentiation is maintained. There is no evidence for acute intracranial hemorrhage, mass/mass effect, pathology or infarction. No extra-axial fluid collection. Calvarium is intact. Paranasal sinuses and mastoid air cells are clear. Incidental 3 cm sebaceous cyst along the posterior midline aspect of the calvarium. IMPRESSION: Age related atrophy and microvascular ischemic changes. No acute intracranial hemorrhage, infarction, or mass/mass effect. 05/10/20 CXR: FINDINGS: There is no acute infiltrate or pulmonary edema. The heart is normal in size. The mediastinal silhouette is unchanged. The visualized osseous structures are unremarkable. IMPRESSION: NO ACUTE PULMONARY DISEASE. MICROBIOLOGY: Please see below. ASSESSMENT: 84-year-old M who lives alone in a one-story home and usually very active at baseline with past medical history significant for type 2 diabetes, bladder CA status post robotic radical cystoscopy prostatectomy June 2017 with urostomy, chronic kidney disease stage III, hyperlipidemia, who was bought in after being found down and now admitted for DKA, renal failure due to rhabdomyolysis, Covid-19 infection with hypoxemic respiratory failure, sepsis likely 2/2 chronic urostomy associated UTI. PLAN: Acute diabetic ketoacidosis like 2/2 sepsis 2/2 UTI and covid-19 infection: resolved -s/p insulin gtt -continue 60u levemir -consistent carb diet -FSBG AC/HS, SSI AC/HS, hypoglycemia protocol DM: -continue 60u levemir -consistent carb diet -FSBG AC/HS, SSI AC/HS, hypoglycemia protocol COLIN on CKD 2/2 dehydration, sepsis and rhabdo: resolved, back to recent baseline -s/p fluids -strict I/Os -has urostomy -nephrology e-consulted, appreciate recs. Signed off today -daily weights Acute rhabdomyolysis on chronic kidney disease stage III: continues to improve -Strict I/Os and daily weights. -s/p fluids -Avoid nephrotoxins. -Renally dose all medications History of bladder tumor s/p TURBT robotic radical cystoscopy prostatectomy June 2017 with urostomy -Urostomy care Sepsis with UTI in the setting of chronic urostomy: -f/u BCx -Fresh UA on urostomy change this AM -Had 5d of appropriate abx therapy for Providencia UTI -elevated procalcitonin, likely acute phase reactant, however did get 5d of abx that also cover for CAP Covid-19 PNA: -with initial D-dimer> 4000, on 40mg BID lovenox -s/p 3d of dex 6mg daily -remdesivir, day #5, completed. -strict covid labs per protocol -supplemental oxygen with goal >92% -incentive spirometry -droplet precautions HLD: -continue home statin at daily dosing Grade 1 LV diastolic CHF, compensated -euvolemic on exam -Strict i/os. -Daily weights Deconditioning and debility status post fall at home. -ARU screen once clinically stable -fall precautions. -Activity as tolerated. -cont PT/OT, will need rehab DVT prophylaxis. Compression stockings and lovenox BID Dispo: Medsurg, 4 main VS,Fishbone, I+O VS, Fishbone, I+O Laboratory Tests 05/16/20 10:05 Vital Signs Date Time Temp Pulse Resp B/P (MAP) Pulse Ox O2 Delivery O2 Flow Rate FiO2 05/16/20 09:49 68 115/64 05/16/20 09:00 4.0 05/16/20 04:00 98.1 20 94 Nasal Cannula I&O- Last 24 Hours up to 6 AM 05/16/20 06:00 Intake Total 1380 ml Output Total 2775 ml Balance -1395 ml MONTANA SIMON MD May 16, 2020 15:00
[2020-05-16 16:00] VITALS: BP 106/53
[2020-05-16 20:00] VITALS: BP 104/52
[2020-05-16] MEDS: LEVEMIR (INSULIN DETEMIR) 1 UNITS/0.01ML SC SCH (22:05)
[2020-05-17] MEDS: ENOXAPARIN 40MG/0.4ML SYRINGE (J1650 PER 10MG) SC SCH ×2 (01:18→13:02)
[2020-05-17 04:00] VITALS: BP 110/59
[2020-05-17] MEDS: HumaLOG INSULIN (NovoLOG) PER UNIT SC SCH ×4 (07:30→21:00)
[2020-05-17 07:41] LABS: HEMATOCRIT 39.1 % (42.0-52.0); HEMOGLOBIN 12.6 g/dl (13.5-17.5); MEAN CORPUSCULAR HEMOGLOBIN 29.2 pg (27.0-33.0); MEAN CORPUSCULAR HGB CONC 32.2 g/dl (32.0-36.5); MEAN CORPUSCULAR VOLUME 90.5 fl (80.0-96.0); PLATELET COUNT, AUTOMATED 321 10^3/uL (150-450); RED BLOOD COUNT 4.32 10^6/uL (4.30-6.10); WHITE BLOOD COUNT 8.5 10^3/uL (4.0-10.0)
[2020-05-17 08:30] LABS: ATYPICAL LYMPH 5 % (0-5); EOSINOPHILS 2 % (0-3); LYMPHOCYTES 18 % (16-44); METAMYELOCYTES 2 % (0-0); MONOCYTES 5 % (0-5); MYELOCYTES 1 % (0-0); NEUTROPHILS 66 % (28-66)
[2020-05-17 08:31] LABS: PLATELET ESTIMATE NORMAL (NORMAL)
[2020-05-17] MEDS: MULTIVITAMINS/MINERALS THERAP 1 TAB PO SCH (08:46)
[2020-05-17] MEDS: PANTOPRAZOLE 40MG VIAL (C9113 PER 1) IV SCH (08:46)
[2020-05-17] MEDS: ASPIRIN 81 MG ENTERIC TAB PO SCH (08:46)
[2020-05-17] MEDS: ATORVASTATIN 20 MG TAB PO SCH (08:47)
[2020-05-17] MEDS: amLODIPine 10 MG TAB PO SCH (08:47)
[2020-05-17 12:00] VITALS: BP 115/57
--- NOTE | 2020-05-17 13:44 | IPNPDOC ---
Text Note Date of Service 05/17/2020 NOTE Subjective: Patient is an 84-year-old male with a PMHx of DM2, Bladder CA s/p Robotic radical cystectomy / prostatectomy / urostomy (06/2017), CKD3, DLP, who presented to the emergency room after he was found down. Patient was admitted to hospital service for DKA (2/2 UTI) and was also found to be COVID19 positive with hypoxia. Patient was seen and examined at the bedside. Currently patient reports that he is doing relatively well. Denies any chest pain, shortness of breath, palpitations, nausea, vomiting, abdominal pain or diarrhea. Objective: Vitals (See below) General: Lying in bed, no acute distress, comfortable, Awake / Alert HEENT: NC, AT CVS: RRR, +S1S2 Lungs: Fair air entry b/l, -w/r/r Abdomen: Soft, ND, NT Extremities: - Edema, - Calf tenderness Imaging: CXR 05/10: NO ACUTE PULMONARY DISEASE. CT head 05/10: Age related atrophy and microvascular ischemic changes. No acute intracranial hemorrhage, infarction, or mass/mass effect. Renal US 05/10: Negative renal sonogram. CXR 05/11: Relatively stable examination similar to multiple prior examinations. Very subtle superimposed atelectasis cannot be excluded. Assessment and plan: s/p DKA - 2/2 Sepsis 2/2 UTI / COVID19 - s/p Insulin drip IDDM2 - c/w ISS and Levemir Sepsis - 2/2 UTI - 2/2 Polymicrobial urinary tract infection - s/p Ciprofloxacin - Will start Levofloxacin COLIN on CKD 2/2 dehydration, sepsis and rhabdo: resolved, back to recent baseline - s/p fluids - Nephrology was consulted; appreciated their recommendations s/p Acute rhabdomyolysis - s/p fluids History of bladder tumor - s/p TURBT robotic radical cystoscopy / prostatectomy / urostomy (06/2017) COVID 19 pneumonia / Mild Hypoxia - Currently patient reports to be asymptomatic - Requiring 4L NC oxygen over the last 4 days - Inflammatory markers will continue to be trended - s/p Remdesivir - c/w incentive spirometry - supplemental oxygen to maintain saturation >92% HTN - c/w Amlodipine DLP - c/w Atorvastatin Chronic Grade 1 LV Diastolic CHF - No evidence of exacerbation Deconditioning and debility status post fall at home - Will c/w PT and OT - PFS looking for swing bed placement within next 24-48 hours GERD - c/w Protonix DVT prophylaxis - c/w Lovenox Dispo: - Transition to ALC status - Anticipate transition to swing-bed within 24 hours VS,Fishbone, I+O VS, Fishbone, I+O Laboratory Tests 05/17/20 06:32 Vital Signs Date Time Temp Pulse Resp B/P (MAP) Pulse Ox O2 Delivery O2 Flow Rate FiO2 05/17/20 12:00 98.6 91 19 115/57 (76) 93 Nasal Cannula 4.0 I&O- Last 24 Hours up to 6 AM 05/17/20 05:59 Intake Total 780 ml Output Total 1100 ml Balance -320 ml MARY FIGUEROA MD May 17, 2020 13:44
[2020-05-17 14:26] LABS: HEMATOCRIT 37.3 % (42.0-52.0); HEMOGLOBIN 11.9 g/dl (13.5-17.5); MEAN CORPUSCULAR HEMOGLOBIN 29.2 pg (27.0-33.0); MEAN CORPUSCULAR HGB CONC 31.9 g/dl (32.0-36.5); MEAN CORPUSCULAR VOLUME 91.4 fl (80.0-96.0); PLATELET COUNT, AUTOMATED 338 10^3/uL (150-450); RED BLOOD COUNT 4.08 10^6/uL (4.30-6.10)
[2020-05-17 14:39] LABS: D-DIMER QUANT 937.06 ng/ml (<500)
[2020-05-17 14:55] LABS: ALBUMIN 1.8 GM/DL (3.2-5.2); ATYPICAL LYMPH 5 % (0-5); BILIRUBIN,TOTAL 0.7 MG/DL (0.2-1.0); C REACTIVE PROTEIN QUANTITATIV 8.81 MG/DL (0.00-0.30); CALCIUM LEVEL 7.7 MG/DL (8.8-10.2); CREATININE FOR GFR 1.29 MG/DL (0.70-1.30); GLOMERULAR FILTRATION RATE 56.4 (>35); LYMPHOCYTES 10 % (16-44); METAMYELOCYTES 1 % (0-0); MONOCYTES 9 % (0-5); NEUTROPHILS 72 % (28-66); PLATELET CLUMPS SMALL AMT; PLATELET ESTIMATE NORMAL (NORMAL); POTASSIUM SERUM 3.9 MEQ/L (3.5-5.1); TOTAL PROTEIN 4.9 GM/DL (6.4-8.2)
[2020-05-17] MEDS ORDERED: LevoFLOXacin 500 MG TABLET PO SCH (15:00)
[2020-05-17] MEDS: LevoFLOXacin 750 MG TABLET PO SCH (16:10)
[2020-05-17 20:00] VITALS: BP 109/55
[2020-05-17] MEDS: LEVEMIR (INSULIN DETEMIR) 1 UNITS/0.01ML SC SCH (21:07)
[2020-05-18] MEDS: ENOXAPARIN 40MG/0.4ML SYRINGE (J1650 PER 10MG) SC SCH ×2 (00:54→13:03)
[2020-05-18 06:17] LABS: HEMOGLOBIN 11.5 g/dl (13.5-17.5); MEAN CORPUSCULAR HEMOGLOBIN 28.4 pg (27.0-33.0); MEAN CORPUSCULAR HGB CONC 31.1 g/dl (32.0-36.5); MEAN CORPUSCULAR VOLUME 91.4 fl (80.0-96.0); PLATELET COUNT, AUTOMATED 391 10^3/uL (150-450); RED BLOOD COUNT 4.05 10^6/uL (4.30-6.10); WHITE BLOOD COUNT 6.7 10^3/uL (4.0-10.0)
[2020-05-18 06:40] LABS: INR 1.18; PROTHROMBIN TIME 15.3 SECONDS (12.5-14.3)
[2020-05-18 06:41] LABS: PARTIAL THROMBOPLASTIN TIME 41.1 SECONDS (24.2-38.5)
[2020-05-18 06:42] LABS: EOSINOPHILS 1 % (0-3); LYMPHOCYTES 16 % (16-44); MONOCYTES 7 % (0-5); NEUTROPHILS 76 % (28-66)
[2020-05-18 06:43] LABS: PLATELET ESTIMATE NORMAL (NORMAL)
[2020-05-18 06:44] LABS: D-DIMER QUANT 940.36 ng/ml (<500)
[2020-05-18 06:49] LABS: ALBUMIN 1.8 GM/DL (3.2-5.2); BILIRUBIN,DIRECT 0.3 MG/DL (0.0-0.2); BILIRUBIN,TOTAL 0.6 MG/DL (0.2-1.0); CALCIUM LEVEL 7.8 MG/DL (8.8-10.2); CREATININE FOR GFR 1.28 MG/DL (0.70-1.30); GLOMERULAR FILTRATION RATE 56.9 (>35); POTASSIUM SERUM 4.1 MEQ/L (3.5-5.1); TOTAL PROTEIN 4.8 GM/DL (6.4-8.2)
[2020-05-18 06:50] LABS: C REACTIVE PROTEIN QUANTITATIV 7.34 MG/DL (0.00-0.30)
[2020-05-18] MEDS: HumaLOG INSULIN (NovoLOG) PER UNIT SC SCH ×4 (07:30→21:23)
[2020-05-18 08:00] VITALS: BP 101/60
[2020-05-18] MEDS: amLODIPine 10 MG TAB PO SCH (08:57)
[2020-05-18] MEDS: PANTOPRAZOLE 40MG VIAL (C9113 PER 1) IV SCH (10:00)
[2020-05-18] MEDS: ASPIRIN 81 MG ENTERIC TAB PO SCH (10:00)
[2020-05-18] MEDS: MULTIVITAMINS/MINERALS THERAP 1 TAB PO SCH (10:00)
[2020-05-18] MEDS: ATORVASTATIN 20 MG TAB PO SCH (10:00)
[2020-05-18 21:05] VITALS: BP 109/59
[2020-05-18] MEDS: LEVEMIR (INSULIN DETEMIR) 1 UNITS/0.01ML SC SCH (21:23)
[2020-05-19] MEDS: ENOXAPARIN 40MG/0.4ML SYRINGE (J1650 PER 10MG) SC SCH ×2 (01:34→12:58)
[2020-05-19 04:28] VITALS: BP 110/61
[2020-05-19] MEDS: LevoFLOXacin 750 MG TABLET PO SCH (05:06)
[2020-05-19 06:35] LABS: BASO % 0.3 % (0.0-1.0); EOS # 0.1 10^3/uL (0.0-0.5); EOS % 0.8 % (0.0-3.0); HEMATOCRIT 38.9 % (42.0-52.0); HEMOGLOBIN 12.1 g/dl (13.5-17.5); LYMPH # 1.5 10^3/uL (1.5-5.0); LYMPH % 20.2 % (24.0-44.0); MEAN CORPUSCULAR HEMOGLOBIN 28.9 pg (27.0-33.0); MEAN CORPUSCULAR HGB CONC 31.1 g/dl (32.0-36.5); MEAN CORPUSCULAR VOLUME 93.1 fl (80.0-96.0); MONO # 0.9 10^3/uL (0.0-0.8); MONO % 12.3 % (0.0-5.0); NEUTROPHILS # 4.5 10^3/uL (1.5-8.5); NEUTROPHILS % 62.5 % (36.0-66.0); PLATELET COUNT, AUTOMATED 476 10^3/uL (150-450); RED BLOOD COUNT 4.18 10^6/uL (4.30-6.10); WHITE BLOOD COUNT 7.3 10^3/uL (4.0-10.0)
[2020-05-19 07:08] LABS: ALBUMIN 1.9 GM/DL (3.2-5.2); BILIRUBIN,DIRECT 0.3 MG/DL (0.0-0.2); BILIRUBIN,TOTAL 0.5 MG/DL (0.2-1.0); C REACTIVE PROTEIN QUANTITATIV 5.23 MG/DL (0.00-0.30); CALCIUM LEVEL 7.6 MG/DL (8.8-10.2); CREATININE FOR GFR 1.23 MG/DL (0.70-1.30); GLOMERULAR FILTRATION RATE 59.5 (>35); MAGNESIUM LEVEL 2.1 MG/DL (1.8-2.4); TOTAL PROTEIN 5.1 GM/DL (6.4-8.2)
[2020-05-19 07:13] LABS: INR 1.19; PROTHROMBIN TIME 15.3 SECONDS (12.5-14.3)
[2020-05-19 07:14] LABS: PARTIAL THROMBOPLASTIN TIME 40.3 SECONDS (24.2-38.5)
[2020-05-19] MEDS: HumaLOG INSULIN (NovoLOG) PER UNIT SC SCH ×2 (07:15→12:58)
[2020-05-19 07:16] LABS: D-DIMER QUANT 910.54 ng/ml (<500)
[2020-05-19 08:00] VITALS: BP 102/52
[2020-05-19 08:42] VITALS: BP 110/61
[2020-05-19] MEDS: ATORVASTATIN 20 MG TAB PO SCH (08:42)
[2020-05-19] MEDS: MULTIVITAMINS/MINERALS THERAP 1 TAB PO SCH (08:42)
[2020-05-19] MEDS: ASPIRIN 81 MG ENTERIC TAB PO SCH (08:42)
[2020-05-19] MEDS: amLODIPine 10 MG TAB PO SCH (08:42)
[2020-05-19] MEDS ORDERED: PANTOPRAZOLE 40MG TAB (PROTONIX) PO SCH (09:00)
--- NOTE | 2020-05-19 13:37 | DS.PDOC ---
Discharge Summary General Date of Admission May 10, 2020 at 14:59 Date of Discharge 05/19/2020 Discharge Summary PROCEDURES PERFORMED DURING STAY: [None]. ADMITTING DIAGNOSES / DISCHARGE DIAGNOSES: s/p DKA - 2/2 Sepsis 2/2 UTI / COVID19 IDDM2 Sepsis - 2/2 UTI - 2/2 Polymicrobial urinary tract infection COLIN on CKD 2/2 dehydration, sepsis and rhabdo: resolved, back to recent baseline s/p Acute rhabdomyolysis History of bladder tumor COVID 19 pneumonia / Mild Hypoxia HTN DLP Chronic Grade 1 LV Diastolic CHF Deconditioning and debility status post fall at home GERD DVT prophylaxis COMPLICATIONS/CHIEF COMPLAINT: Elevated Glucose HISTORY OF PRESENT ILLNESS: Patient is an 84-year-old male with a PMHx of DM2, Bladder CA s/p Robotic radical cystectomy / prostatectomy / urostomy (06/2017), CKD3, DLP, who presented to the emergency room after he was found down. Patient was admitted to hospital service for DKA (2/2 UTI) and was also found to be COVID19 positive with hypoxia. HOSPITAL COURSE: s/p DKA - 2/2 Sepsis 2/2 UTI / COVID19 - s/p Insulin drip IDDM2 - c/w ISS and Levemir Sepsis - 2/2 UTI - 2/2 Polymicrobial urinary tract infection - s/p Ciprofloxacin - c/w Levofloxacin (Day #3) COLIN on CKD 2/2 dehydration, sepsis and rhabdo: resolved, back to recent baseline - s/p fluids - Nephrology was consulted; appreciated their recommendations s/p Acute rhabdomyolysis - s/p fluids History of bladder tumor - s/p TURBT robotic radical cystoscopy / prostatectomy / urostomy (06/2017) COVID 19 pneumonia / Mild Hypoxia - Currently patient reports to be asymptomatic - Requiring 4L NC oxygen over the last 4 days - Inflammatory markers will continue to be trended - s/p Remdesivir - c/w incentive spirometry - supplemental oxygen to maintain saturation >92% HTN - c/w Amlodipine DLP - c/w Atorvastatin Chronic Grade 1 LV Diastolic CHF - No evidence of exacerbation Deconditioning and debility status post fall at home - Will c/w PT and OT; will transition to [facility] GERD - c/w Protonix DVT prophylaxis - c/w Lovenox DISCHARGE MEDICATIONS: Please see below. ALLERGIES: Please see below. PHYSICAL EXAMINATION ON DISCHARGE: Vitals (See below) General: Lying in bed, appears comfortable, Awake / Alert, Oriented x2 HEENT: NC, AT CVS: RRR, +S1S2 Lungs: Fair air entry b/l, no evidence of wheezing / rhonchi / rales Abdomen: Soft, non-distended and non-tender, Extremities: No evidence of edema, - Calf tenderness LABORATORY DATA: Please see below. IMAGING: CXR 05/10: NO ACUTE PULMONARY DISEASE. CT head 05/10: Age related atrophy and microvascular ischemic changes. No acute intracranial hemorrhage, infarction, or mass/mass effect. Renal US 05/10: Negative renal sonogram. CXR 05/11: Relatively stable examination similar to multiple prior examinations. Very subtle superimposed atelectasis cannot be excluded. ACTIVITY: [As tolerated]. DISCHARGE PLAN: Follow up with primary care provider within 7 days DISPOSITION: [facility] DISCHARGE CONDITION: [Stable]. TIME SPENT ON DISCHARGE: 35 minutes. CONTACTS: - Purvi Milligan: [phone] - Natalie Branch: [phone] - Called and discussed case with Elias Milligan and Natalie Branch and provided them with an update about the plan of care and transition to [facility] swing bed Vital Signs/I&Os Vital Signs Date Time Temp Pulse Resp B/P (MAP) Pulse Ox O2 Delivery O2 Flow Rate FiO2 05/19/20 08:42 71 110/61 05/19/20 08:00 96.6 18 91 Nasal Cannula 2.0 I&O- Last 24 Hours up to 6 AM 05/19/20 06:00 Intake Total 1200 ml Output Total 2500 ml Balance -1300 ml Laboratory Data Labs 24H Laboratory Tests 2 05/18/20 16:15: Bedside Glucose (Misc Panel) 66L 05/18/20 20:28: Bedside Glucose (Misc Panel) 255H 05/19/20 05:27: Immature Granulocyte % (Auto) 3.9H, Neutrophils (%) (Auto) 62.5, Lymphocytes (%) (Auto) 20.2L, Monocytes (%) (Auto) 12.3H, Eosinophils (%) (Auto) 0.8, Basophils (%) (Auto) 0.3, Neutrophils # (Auto) 4.5, Lymphocytes # (Auto) 1.5, Monocytes # (Auto) 0.9H, Eosinophils # (Auto) 0.1, Basophils # (Auto) 0.0, Nucleated Red Blood Cells % (auto) 0.0, Prothrombin Time 15.3H, Prothromb Time International Ratio 1.19, Activated Partial Thromboplast Time 40.3H, Fibrinogen 680H, D-Dimer, Quantitative 910.54H, Anion Gap 6L, Glomerular Filtration Rate 59.5, Calcium Level 7.6L, Magnesium Level 2.1, Ferritin 579H, Total Bilirubin 0.5, Direct Bilirubin 0.3H, Aspartate Amino Transf (AST/SGOT) 29, Alanine Aminotransferase (ALT/SGPT) 87H, Alkaline Phosphatase 108, Lactate Dehydrogenase 291H, C-Reactive Protein, Quantitative 5.23H, OY-Xxr-L-Type Natriuretic Peptide 81, Total Protein 5.1L, Albumin 1.9L, Albumin/Globulin Ratio 0.6 05/19/20 07:38: Bedside Glucose (Misc Panel) 111H 05/19/20 12:05: Bedside Glucose (Misc Panel) 193H CBC/BMP Laboratory Tests 05/19/20 05:27 FSBS Laboratory Tests Test 05/18/20 16:15 05/18/20 20:28 05/19/20 07:38 05/19/20 12:05 Range/Units Bedside Glucose (Misc Panel) 66 255 111 193 83-110 MG/DL Microbiology Microbiology 05/11/20 Urine Culture - Final, Complete 05/11/20 Urine Culture - Final, Complete Providencia Rettgeri Klebsiella Pneumoniae Staphylococcus Haemolyticus Enterococcus Faecalis Vagococcus Fluvialis 05/10/20 Blood Culture - Final, Complete NO GROWTH AFTER 5 DAYS 05/10/20 Blood Culture - Final, Complete NO GROWTH AFTER 5 DAYS Discharge Medications Scheduled Amlodipine Besylate (Amlodipine Besylate) 5 Mg Tablet, 1 TAB PO DAILY Aspirin (Aspirin EC) 81 Mg Tablet.dr, 81 MG PO DAILY, (Reported) Atorvastatin Calcium (Atorvastatin Calcium) 40 Mg Tab, 20 MG PO Q2D, (Reported) Enoxaparin Sodium (Lovenox) 40 Mg/0.4 Ml Syringe, 40 MG SC Q12H Insulin Glargine (Lantus) 1 Units/0.01 Ml Susp, 15 UNITS SC QHS Insulin Human Lispro (Humalog) 100 Unit/1 Ml Vial, 0 UNITS SC ACHS As per [facility] sliding scale Levofloxacin (Levofloxacin) 750 Mg Tablet, 750 MG PO Q48H Multivitamins (Thera M Plus Tablet) 1 Each Tablet, 1 TAB PO DAILY, (Reported) Pantoprazole Sodium (Pantoprazole Sodium) 40 Mg Tablet.dr, 40 MG PO DAILY Miscellaneous Medications [Med Rec Comment] , (Reported) LIST OBTAINED FROM PT DAUGHTER, SHE STATES PT HAS NOT HAD MEDS IN APPROX 3 DAYS Allergies Coded Allergies: No Known Allergies (Unverified , 07/02/17) MARY FIGUEROA MD May 19, 2020 13:37
[2020-05-19] MEDS ORDERED: LEVO750T13 PO (13:43)
[2020-05-19] MEDS ORDERED: LOVE1INJ SC (13:43)
[2020-05-19] MEDS ORDERED: AMLO1TAB24 PO (13:43)
[2020-05-19] MEDS ORDERED: INSULANT SC (13:43)
[2020-05-19] MEDS ORDERED: PANT40TA29 PO (13:43)
[2020-05-19] MEDS ORDERED: INSUHUMDS SC (13:43)
[2020-05-19 14:00] VITALS: BP 106/55
[2020-05-19] MEDS ORDERED: LEVEMIR (INSULIN DETEMIR) 1 UNITS/0.01ML SC SCH (21:00)
== END 2020-05-19 16:40 | DRG 871 ==
LOC: EDBD 11:48 → M ED 11:48 → M ED INP 14:59 → M ICU 19:40 → M 4MAIN 05-12 22:45
PROVIDERS: ADMIT General Practice; ATTEND Internal Medicine
PROC: XW033E5 Introduction of Remdesivir Anti-infective into Peripheral Vein, Percutaneous Approach, New Technology Group 5 (ICD-10-PCS; principal; 2020-05-11)
PROC: 3E0333Z Introduction of Anti-inflammatory into Peripheral Vein, Percutaneous Approach (ICD-10-PCS; 2020-05-11)
DX: A41.9 Sepsis, unspecified organism (principal); E11.10 Type 2 diabetes mellitus with ketoacidosis without coma; U07.1 COVID-19; J12.89 Other viral pneumonia; M62.82 Rhabdomyolysis; T83.518A Infection and inflammatory reaction due to other urinary catheter, initial encounter; I50.32 Chronic diastolic (congestive) heart failure; E87.0 Hyperosmolality and hypernatremia; N18.2 Chronic kidney disease, stage 2 (mild); E11.22 Type 2 diabetes mellitus with diabetic chronic kidney disease; E78.5 Hyperlipidemia, unspecified; Z85.51 Personal history of malignant neoplasm of bladder; Z98.41 Cataract extraction status, right eye; Z98.42 Cataract extraction status, left eye; E87.5 Hyperkalemia; Z79.82 Long term (current) use of aspirin; Z79.4 Long term (current) use of insulin; Z79.899 Other long term (current) drug therapy; Z93.6 Other artificial openings of urinary tract status; E86.0 Dehydration; R09.02 Hypoxemia; K21.9 Gastro-esophageal reflux disease without esophagitis; B96.1 Klebsiella pneumoniae [K. pneumoniae] as the cause of diseases classified elsewhere; B95.61 Methicillin susceptible Staphylococcus aureus infection as the cause of diseases classified elsewhere; Y83.3 Surgical operation with formation of external stoma as the cause of abnormal reaction of the patient, or of later complication, without mention of misadventure at the time of the procedure

== ENCOUNTER → 2020-09-01 | Outpatient (REF) | payer MEDICARE ==
[~2020-09-01] MED LIST changes: +AMLO1TAB24 PO; -ATORVASTATIN 20 MG TAB PO SCH; +GLIP10TA6 PO; +INSUHUMDS SC; +LEVO750T13 PO; +LOVE1INJ SC; +MED REC COMMENT; +PANT40TA29 PO; +VITMTA PO
== END ==
LOC: M SMT 16:41
PROVIDERS: ATTEND Urology
DX: Z85.51 Personal history of malignant neoplasm of bladder (principal)
CPT/HCPCS: 88108; G0463

== ENCOUNTER → 2020-10-17 | Outpatient (REF) | payer MEDICARE ==
[2020-10-17 17:24] LABS: BASO % 0.4 % (0.0-1.0); EOS # 0.1 10^3/uL (0.0-0.5); EOS % 0.9 % (0.0-3.0); HEMATOCRIT 38.7 % (42.0-52.0); HEMOGLOBIN 12.4 g/dl (13.5-17.5); LYMPH # 2.8 10^3/uL (1.5-5.0); LYMPH % 32.5 % (24.0-44.0); MEAN CORPUSCULAR HEMOGLOBIN 29.2 pg (27.0-33.0); MEAN CORPUSCULAR VOLUME 91.1 fl (80.0-96.0); MONO # 0.7 10^3/uL (0.0-0.8); MONO % 7.9 % (2.0-8.0); NEUTROPHILS # 4.9 10^3/uL (1.5-8.5); NEUTROPHILS % 57.7 % (36.0-66.0); PLATELET COUNT, AUTOMATED 280 10^3/uL (150-450); RED BLOOD COUNT 4.25 10^6/uL (4.30-6.10); WHITE BLOOD COUNT 8.5 10^3/uL (4.0-10.0)
[2020-10-17 17:34] LABS: HEMOGLOBIN A1c 9.8 %
[2020-10-17 17:43] LABS: BILIRUBIN,TOTAL 0.4 MG/DL (0.2-1.0); CALCIUM LEVEL 8.6 MG/DL (8.8-10.2); CREATININE FOR GFR 1.41 MG/DL (0.70-1.30); GLOMERULAR FILTRATION RATE 50.7 (>35); POTASSIUM SERUM 4.2 MEQ/L (3.5-5.1)
[2020-10-17 17:44] LABS: ALBUMIN 3.6 GM/DL (3.2-5.2); CHOLESTEROL RISK RATIO 3.533 (<5); TOTAL PROTEIN 6.8 GM/DL (6.4-8.2)
== END ==
LOC: M SFHCPLAZ 15:18
PROVIDERS: ATTEND Internal Medicine
DX: Z85.51 Personal history of malignant neoplasm of bladder (principal); E11.9 Type 2 diabetes mellitus without complications; E78.5 Hyperlipidemia, unspecified
CPT/HCPCS: 36415; 80053; 80061; 83036; 85025; G0463

== ENCOUNTER → 2021-08-31 | Outpatient (CLI) | payer MEDICARE ==
[2021-08-31 17:39] LABS: HEMOGLOBIN 13.4 g/dl (13.5-17.5); MEAN CORPUSCULAR HEMOGLOBIN 29.8 pg (27.0-33.0); MEAN CORPUSCULAR HGB CONC 33.5 g/dl (32.0-36.5); MEAN CORPUSCULAR VOLUME 89.1 fl (80.0-96.0); PLATELET COUNT, AUTOMATED 313 10^3/uL (150-450); RED BLOOD COUNT 4.49 10^6/uL (4.30-6.10); WHITE BLOOD COUNT 7.7 10^3/uL (4.0-10.0)
[2021-08-31 17:51] LABS: ALBUMIN 3.5 GM/DL (3.2-5.2); BILIRUBIN,TOTAL 0.5 MG/DL (0.2-1.0); CREATININE FOR GFR 1.54 MG/DL (0.70-1.30); GLOMERULAR FILTRATION RATE 45.7 (>35); POTASSIUM SERUM 4.5 MEQ/L (3.5-5.1); TOTAL PROTEIN 6.7 GM/DL (6.4-8.2)
== END ==
LOC: M PLALAB 14:57
PROVIDERS: ATTEND Urology
DX: Z85.51 Personal history of malignant neoplasm of bladder (principal)

== ENCOUNTER → 2021-10-23 | Outpatient (CLI) | payer MEDICARE ==
[2021-10-23 14:09] LABS: APPEARANCE, URINE CLOUDY (CLEAR); BACTERIA, URINE AUTO NEGATIVE (NEGATIVE); BASO # 0.1 10^3/uL (0.0-0.2); BASO % 0.7 % (0.0-1.0); BILIRUBIN, URINE AUTO NEGATIVE (NEGATIVE); BLOOD, URINE BLOOD 1+ (NEGATIVE); COLOR, URINE AMBER (YELLOW); EOS # 0.1 10^3/uL (0.0-0.5); GLUCOSE, URINE (UA) AUTO 3+ mg/dL (NEGATIVE); HEMATOCRIT 42.4 % (42.0-52.0); HEMOGLOBIN 13.7 g/dl (13.5-17.5); KETONE, URINE AUTO NEGATIVE (NEGATIVE); LEUKOCYTE ESTERASE, URINE AUTO TRACE (NEGATIVE); LYMPH # 2.3 10^3/uL (1.5-5.0); LYMPH % 29.6 % (24.0-44.0); MEAN CORPUSCULAR HEMOGLOBIN 29.5 pg (27.0-33.0); MEAN CORPUSCULAR HGB CONC 32.3 g/dl (32.0-36.5); MEAN CORPUSCULAR VOLUME 91.2 fl (80.0-96.0); MONO # 0.6 10^3/uL (0.0-0.8); MONO % 8.2 % (2.0-8.0); MUCUS, URINE SMALL (NEGATIVE); NEUTROPHILS # 4.6 10^3/uL (1.5-8.5); NEUTROPHILS % 59.7 % (36.0-66.0); NITRITE, URINE AUTO NEGATIVE (NEGATIVE); PLATELET COUNT, AUTOMATED 243 10^3/uL (150-450); PROTEIN, URINE AUTO NEGATIVE (NEGATIVE); RBC, URINE AUTO 2 /HPF (0-3); RED BLOOD COUNT 4.65 10^6/uL (4.30-6.10); SQUAMOUS EPITHELIAL CELL UR AU 0 /HPF (0-6); UROBILINOGEN, URINE AUTO 0.2 mg/dL (0.0-2.0); WBC, URINE AUTO 7 /HPF (0-3); WHITE BLOOD COUNT 7.7 10^3/uL (4.0-10.0)
[2021-10-23 14:35] LABS: ALBUMIN 3.7 GM/DL (3.2-5.2); BILIRUBIN,TOTAL 0.5 MG/DL (0.2-1.0); CALCIUM LEVEL 9.6 MG/DL (8.8-10.2); CHOLESTEROL RISK RATIO 4.285 (<5); CREATININE FOR GFR 1.55 MG/DL (0.70-1.30); GLOMERULAR FILTRATION RATE 45.4 (>35); POTASSIUM SERUM 4.6 MEQ/L (3.5-5.1); TOTAL PROTEIN 6.7 GM/DL (6.4-8.2)
[2021-10-23 14:42] LABS: CREATININE, URINE 91.1 MG/DL; MAU/CREAT RATIO 43.9 MCG/MG (0.0-30.0)
[2021-10-23 15:02] LABS: HEMOGLOBIN A1c 10.7 %
== END ==
LOC: M PLALAB 09:11
PROVIDERS: ATTEND Internal Medicine
DX: Z85.51 Personal history of malignant neoplasm of bladder (principal); E78.5 Hyperlipidemia, unspecified; E11.9 Type 2 diabetes mellitus without complications

== ENCOUNTER → 2022-08-31 | Outpatient (REF) | payer MEDICARE ==
[~2022-08-31] MED LIST changes: +LEVO1TAB40 PO; -LEVO750T13 PO
== END ==
LOC: M SMT 13:06
PROVIDERS: ATTEND Urology
DX: Z85.51 Personal history of malignant neoplasm of bladder (principal)

== ENCOUNTER → 2022-09-19 | Outpatient (CLI) | payer MEDICARE ==
[2022-09-19 11:18] LABS: HEMATOCRIT 40.8 % (42.0-52.0); HEMOGLOBIN 13.3 g/dl (13.5-17.5); MEAN CORPUSCULAR HEMOGLOBIN 29.8 pg (27.0-33.0); MEAN CORPUSCULAR HGB CONC 32.6 g/dl (32.0-36.5); MEAN CORPUSCULAR VOLUME 91.3 fl (80.0-96.0); PLATELET COUNT, AUTOMATED 299 10^3/uL (150-450); RED BLOOD COUNT 4.47 10^6/uL (4.30-6.10); WHITE BLOOD COUNT 7.7 10^3/uL (4.0-10.0)
[2022-09-19 11:38] LABS: CALCIUM LEVEL 8.5 MG/DL (8.3-10.6); CREATININE FOR GFR 1.29 MG/DL (0.70-1.30); POTASSIUM SERUM 4.6 MMOL/L (3.5-5.1)
== END ==
LOC: M PLALAB 08:39
PROVIDERS: ATTEND Urology
DX: Z85.51 Personal history of malignant neoplasm of bladder (principal)

== ENCOUNTER → 2022-09-21 | Outpatient (CLI) | payer MEDICARE ==
[2022-09-21 10:57] LABS: HEMATOCRIT 41.2 % (42.0-52.0); HEMOGLOBIN 13.2 g/dl (13.5-17.5); MEAN CORPUSCULAR HEMOGLOBIN 29.9 pg (27.0-33.0); MEAN CORPUSCULAR VOLUME 93.2 fl (80.0-96.0); PLATELET COUNT, AUTOMATED 270 10^3/uL (150-450); RED BLOOD COUNT 4.42 10^6/uL (4.30-6.10)
[2022-09-21 11:30] LABS: C REACTIVE PROTEIN QUANTITATIV < 0.40 MG/DL (<1.0)
[2022-09-21 11:32] LABS: ALBUMIN 3.4 G/DL (3.2-5.2); ALKALINE PHOSPHATASE 121 U/L (46-116); ALT/SGPT 20 U/L (7.0-40); AST/SGOT 14 U/L (<34); BILIRUBIN,TOTAL 0.5 MG/DL (0.3-1.2); BLOOD UREA NITROGEN 16 MG/DL (9-23); CALCIUM LEVEL 8.4 MG/DL (8.3-10.6); CARBON DIOXIDE LEVEL 26 MMOL/L (20-31); CHLORIDE LEVEL 109 MMOL/L (98-107); CHOLESTEROL LEVEL 97 MG/DL (<200); CHOLESTEROL RISK RATIO 3.32 (<5); CREATININE FOR GFR 1.23 MG/DL (0.70-1.30); GLOMERULAR FILTRATION RATE 59.1 (>35); GLUCOSE, FASTING 220 MG/DL (74-106); HDL CHOLESTEROL 29.2 MG/DL (>40); LDL CHOLESTEROL 47.8 MG/DL (<100); NON-HDL-C 67.8 MG/DL; POTASSIUM SERUM 4.5 MMOL/L (3.5-5.1); SODIUM LEVEL 142 MMOL/L (136-145); TOTAL PROTEIN 6.1 G/DL (5.7-8.2); TRIGLYCERIDES LEVEL 100 MG/DL (<150)
== END ==
LOC: M PLALAB 08:04
PROVIDERS: ATTEND Internal Medicine Hematology
DX: E11.65 Type 2 diabetes mellitus with hyperglycemia (principal)

== ENCOUNTER 2023-06-10 14:59 | Emergency (ER) | payer MEDICARE ==
[2023-06-10 16:05] LABS: RSV AMPLIFICATION POSITIVE (NEGATIVE)
[2023-06-10] MEDS ORDERED: GLIP10TA6 (17:56)
[2023-06-10 21:41] VITALS: O2SAT 96
[2023-06-10] MEDS ORDERED: BENZ200C70 PO (21:45)
[2023-06-10] MEDS ORDERED: DOXY100C82 PO (21:45)
[2023-06-10 22:04] VITALS: BP 134/70; TEMP 98.4; O2SAT 99
== END 2023-06-10 22:24 | disposition home or self-care (01) ==
LOC: M ED 14:59
DX: J12.1 Respiratory syncytial virus pneumonia (principal); J44.9 Chronic obstructive pulmonary disease, unspecified; E11.9 Type 2 diabetes mellitus without complications; Z79.82 Long term (current) use of aspirin; Z79.899 Other long term (current) drug therapy

== ENCOUNTER 2023-06-25 15:31 | Inpatient (IN) | payer MEDICARE ==
[2023-06-25] VITALS (17 sets, daily range): BP systolic 97–120; BP diastolic 50–92; TEMP 97–97.5; O2SAT 98–100
[~2023-06-25] VITALS: Ht 177.8 cm; Wt 79.0 kg
[~2023-06-25 15:31] MED LIST changes: +BENZ200C70 PO; +DOXY100C82 PO
[2023-06-25] MEDS: cefTRIAXone SOD 2 GM in D5W MINI-BAG PLUS 50 ML IV ONE (16:19)
[2023-06-25] MEDS: NS 1,000 ML IV ONE (16:19)
[2023-06-25 16:21] LABS: BASO # 0.1 10^3/uL (0.0-0.2); BASO % 0.5 % (0.0-1.0); EOS % 0.1 % (0.0-3.0); HEMATOCRIT 54.5 % (42.0-52.0); HEMOGLOBIN 15.6 g/dl (13.5-17.5); LYMPH # 1.7 10^3/uL (1.5-5.0); LYMPH % 7.6 % (24.0-44.0); MEAN CORPUSCULAR HEMOGLOBIN 29.8 pg (27.0-33.0); MEAN CORPUSCULAR HGB CONC 28.6 g/dl (32.0-36.5); MEAN CORPUSCULAR VOLUME 104.2 fl (80.0-96.0); MONO % 8.8 % (2.0-8.0); NEUTROPHILS # 17.9 10^3/uL (1.5-8.5); NEUTROPHILS % 79.4 % (36.0-66.0); PLATELET COUNT, AUTOMATED 419 10^3/uL (150-450); RED BLOOD COUNT 5.23 10^6/uL (4.30-6.10); WHITE BLOOD COUNT 22.5 10^3/uL (4.0-10.0)
[2023-06-25 16:21] LABS: ABG BASE EXCESS -21.4 (-2.0-2.0); ABG HCO3 9.6 MMOL/L (22.0-26.0); ABG O2 SATURATION 94.9 % (95.0-99.0); ABG PARTIAL PRESSURE CO2 40.4 mmHg (35.0-45.0); ABG PARTIAL PRESSURE O2 95.6 mmHg (75.0-100.0); ABG STANDARD HCO3 9.5 MMOL/L. (22.0-26.0); ABG TOTAL CO2 10.8 MMOL/L (23.0-31.0)
[2023-06-25 16:24] LABS: ABG pH (ARTERIAL) 6.993 UNITS (7.350-7.450)
[2023-06-25] MEDS ORDERED: INSULIN IV RATE CHANGE DOCUMENTATION ML/HR XX SCH (16:25)
[2023-06-25] MEDS: INSULIN REGULAR IN 0.9 % NACL 100 UNIT in IV 1 EA IV SCH (16:37)
[2023-06-25] MEDS: HumuLIN R (REGULAR) INSULIN (NovoLIN R) **100U/ML** PER UNIT IV ONE (16:38)
[2023-06-25 16:44] LABS: C REACTIVE PROTEIN QUANTITATIV 2.7 MG/DL (<1.0)
[2023-06-25 17:03] LABS: ALBUMIN 3.4 G/DL (3.2-5.2); BILIRUBIN,DIRECT 0.3 MG/DL (<0.4); BILIRUBIN,TOTAL 0.4 MG/DL (0.3-1.2); CALCIUM LEVEL 9.7 MG/DL (8.3-10.6); CREATININE FOR GFR 3.76 MG/DL (0.70-1.30); GLOMERULAR FILTRATION RATE 16.3 (>35); POTASSIUM SERUM 5.2 MMOL/L (3.5-5.1); TOTAL PROTEIN 6.6 G/DL (5.7-8.2)
[2023-06-25] MEDS: NOREPINEPHRINE 4MG IN D5 250ML 4 MG in IV 1 EA IV SCH ×2 (17:06→18:53)
[2023-06-25] MEDS: NS 2,310 ML in IV 1 EA IV ONE (17:51)
[2023-06-25] MEDS ORDERED: HOME MED LIST COMPLETE! XX SCH (20:05)
[2023-06-25] MEDS: INSULIN IV RATE CHANGE DOCUMENTATION ML/HR XX SCH (20:10)
[2023-06-25] MEDS ORDERED: LR 1,000 ML IV SCH (20:15)
[2023-06-25] MEDS: LR 1,000 ML IV ONE (20:47)
[2023-06-25 20:57] LABS: HEMOGLOBIN A1c 12.3 % (4.0-6.0)
[2023-06-25 21:14] LABS: FREE T4 1.07 NG/DL (0.89-1.76); THYROID STIMULATING HORMONE 1.557 uIU/ML (0.55-4.78)
[2023-06-25 21:16] LABS: CALCIUM LEVEL 8.7 MG/DL (8.3-10.6); CREATININE FOR GFR 3.08 MG/DL (0.70-1.30); GLOMERULAR FILTRATION RATE 20.5 (>35); MAGNESIUM LEVEL 2.6 MG/DL (1.8-2.4); PHOSPHORUS LEVEL 2.6 MG/DL (2.4-5.1); POTASSIUM SERUM 3.4 MMOL/L (3.5-5.1)
[2023-06-25 21:36] LABS: ACETONE/KETONE 4.09 MMOL/L (0.02-0.27)
[2023-06-25] MEDS: NS 0.45% 1,000 ML IV SCH (21:52)
[2023-06-25] MEDS: KCL 10MEQ/100ML SWI (KRUN) 10 MEQ in IV 1 EA IV SCH (22:28)
[2023-06-26] VITALS (34 sets, daily range): BP systolic 86–117; BP diastolic 48–62; TEMP 97.3–99.1; O2SAT 97–100
[2023-06-26 01:17] LABS: CALCIUM LEVEL 8.3 MG/DL (8.3-10.6); CREATININE FOR GFR 2.67 MG/DL (0.70-1.30); GLOMERULAR FILTRATION RATE 24.2 (>35); POTASSIUM SERUM 3.3 MMOL/L (3.5-5.1)
[2023-06-26] MEDS: INSULIN REGULAR IN 0.9 % NACL 100 UNIT in IV 1 EA IV SCH (02:54)
[2023-06-26] MEDS: KCL 10MEQ/100ML SWI (KRUN) 10 MEQ in IV 1 EA IV SCH (02:54)
[2023-06-26] MEDS: D5W/0.45% SODIUM CHLORIDE 1,000 ML IV SCH (04:25)
[2023-06-26 05:08] LABS: CALCIUM LEVEL 8.3 MG/DL (8.3-10.6); CREATININE FOR GFR 2.5 MG/DL (0.70-1.30); GLOMERULAR FILTRATION RATE 26.1 (>35); POTASSIUM SERUM 4.1 MMOL/L (3.5-5.1)
[2023-06-26] MEDS: HEPARIN SOD (PORCINE) 5000UNITS/ML 1ML VIAL/SYRINGE SC SCH (05:29)
[2023-06-26] MEDS: LEVEMIR (INSULIN DETEMIR) 1 UNITS/0.01ML SC SCH (05:29)
[2023-06-26] MEDS: PANTOPRAZOLE 40MG VIAL IV SCH (08:08)
[2023-06-26 09:52] LABS: CALCIUM LEVEL 8.1 MG/DL (8.3-10.6); CREATININE FOR GFR 2.38 MG/DL (0.70-1.30); GLOMERULAR FILTRATION RATE 27.6 (>35); POTASSIUM SERUM 4.5 MMOL/L (3.5-5.1)
[2023-06-26] MEDS: NS 1,000 ML IV SCH (11:06)
[2023-06-26] MEDS: INSULIN LISPRO (NovoLOG) PER UNIT SC SCH ×2 (12:00→21:00)
[2023-06-26] MEDS ORDERED: DEXTROSE 50% 50ML SYRINGE IV PRN (13:10)
[2023-06-26] MEDS ORDERED: GLUCOSE 4GM CHEW TABLET PO PRN (13:10)
[2023-06-26] MEDS ORDERED: GLUCAGON INJ 1MG VIAL SC PRN (13:10)
[2023-06-26] MEDS: cefTRIAXone SOD 2 GM in D5W MINI-BAG PLUS 50 ML IV SCH (15:53)
[2023-06-26 15:58] LABS: VENOUS BASE EXCESS -9.5 (-2.0-2.0); VENOUS HCO3 16.4 MMOL/L (23.0-27.0); VENOUS PARTIAL PRESSURE CO2 36.2 mmHg (38.0-50.0); VENOUS PARTIAL PRESSURE O2 186.9 mmHg (30.0-50.0); VENOUS PH 7.274 UNITS (7.330-7.430); VENOUS TOTAL CO2 17.5 MMOL/L (24.0-28.0)
[2023-06-26 16:13] LABS: BASO % 0.2 % (0.0-1.0); EOS % 0.2 % (0.0-3.0); HEMATOCRIT 41.2 % (42.0-52.0); LYMPH # 1.6 10^3/uL (1.5-5.0); LYMPH % 12.8 % (24.0-44.0); MEAN CORPUSCULAR HEMOGLOBIN 30.1 pg (27.0-33.0); MEAN CORPUSCULAR HGB CONC 32.3 g/dl (32.0-36.5); MEAN CORPUSCULAR VOLUME 93.2 fl (80.0-96.0); MONO # 1.1 10^3/uL (0.0-0.8); MONO % 8.8 % (2.0-8.0); NEUTROPHILS # 9.5 10^3/uL (1.5-8.5); NEUTROPHILS % 77.4 % (36.0-66.0); RED BLOOD COUNT 4.42 10^6/uL (4.30-6.10); WHITE BLOOD COUNT 12.2 10^3/uL (4.0-10.0)
[2023-06-26 16:14] LABS: HEMOGLOBIN 13.3 g/dl (13.5-17.5)
[2023-06-26 16:15] LABS: PLATELET COUNT, AUTOMATED 206 10^3/uL (150-450)
[2023-06-26] MEDS ORDERED: VICT18IN SC (16:16)
[2023-06-26] MEDS ORDERED: DOXY-443 PO (16:16)
[2023-06-26] MEDS ORDERED: ATOR1TAB21 PO (16:16)
[2023-06-26 16:38] LABS: ALBUMIN 2.4 G/DL (3.2-5.2); BILIRUBIN,DIRECT 0.2 MG/DL (<0.4); BILIRUBIN,TOTAL 0.3 MG/DL (0.3-1.2); TOTAL PROTEIN 5.1 G/DL (5.7-8.2)
[2023-06-26 16:39] LABS: PROCALCITONIN 0.79 ng/ml
[2023-06-26 16:40] LABS: ALBUMIN 2.4 G/DL (3.2-5.2); BILIRUBIN,TOTAL 0.3 MG/DL (0.3-1.2); CALCIUM LEVEL 8.2 MG/DL (8.3-10.6); CREATININE FOR GFR 2.17 MG/DL (0.70-1.30); GLOMERULAR FILTRATION RATE 30.7 (>35); MAGNESIUM LEVEL 2.2 MG/DL (1.8-2.4); POTASSIUM SERUM 4.8 MMOL/L (3.5-5.1); TOTAL PROTEIN 5.1 G/DL (5.7-8.2)
[2023-06-26] MEDS: NS 1,000 ML IV ONE (18:18)
[2023-06-26] MEDS: guaiFENesin ER TABLET 600 MG TAB PO SCH (21:03)
[2023-06-27] VITALS: BP 113/63; TEMP 99.1; O2SAT 100
[2023-06-27 04:00] VITALS: BP 128/60; TEMP 99.3; O2SAT 100
[2023-06-27 05:57] LABS: CALCIUM LEVEL 7.5 MG/DL (8.3-10.6); CREATININE FOR GFR 1.6 MG/DL (0.70-1.30); GLOMERULAR FILTRATION RATE 43.6 (>35); MAGNESIUM LEVEL 1.9 MG/DL (1.8-2.4); POTASSIUM SERUM 4.3 MMOL/L (3.5-5.1)
[2023-06-27 07:39] LABS: BASO % 0.1 % (0.0-1.0); EOS % 0.2 % (0.0-3.0); HEMOGLOBIN 11.4 g/dl (13.5-17.5); LYMPH # 1.8 10^3/uL (1.5-5.0); LYMPH % 17.9 % (24.0-44.0); MEAN CORPUSCULAR HEMOGLOBIN 29.8 pg (27.0-33.0); MEAN CORPUSCULAR HGB CONC 31.7 g/dl (32.0-36.5); MEAN CORPUSCULAR VOLUME 94.2 fl (80.0-96.0); MONO # 0.8 10^3/uL (0.0-0.8); MONO % 8.5 % (2.0-8.0); NEUTROPHILS # 7.2 10^3/uL (1.5-8.5); NEUTROPHILS % 72.8 % (36.0-66.0); PLATELET COUNT, AUTOMATED 167 10^3/uL (150-450); RED BLOOD COUNT 3.82 10^6/uL (4.30-6.10); WHITE BLOOD COUNT 9.8 10^3/uL (4.0-10.0)
[2023-06-27 08:00] VITALS: BP 126/60; TEMP 98.5; O2SAT 98
[2023-06-27] MEDS: ASPIRIN 81MG ENTERIC TABLET PO SCH (08:20)
[2023-06-27] MEDS: ATORVASTATIN 20 MG TAB PO SCH (08:20)
[2023-06-27] MEDS: NS 0.45% 1,000 ML IV SCH (10:26)
[2023-06-27 12:00] VITALS: BP 111/59; TEMP 99; O2SAT 97
[2023-06-27 16:00] VITALS: BP 114/58; TEMP 99.3; O2SAT 100
[2023-06-27 17:54] LABS: CALCIUM LEVEL 7.6 MG/DL (8.3-10.6); CREATININE FOR GFR 1.26 MG/DL (0.70-1.30); GLOMERULAR FILTRATION RATE 57.5 (>35); MAGNESIUM LEVEL 1.8 MG/DL (1.8-2.4); PHOSPHORUS LEVEL 1.9 MG/DL (2.4-5.1); POTASSIUM SERUM 3.8 MMOL/L (3.5-5.1)
[2023-06-27 20:00] VITALS: BP 129/76; TEMP 99.2; O2SAT 98
[2023-06-27] MEDS: MAG SULF 1GM/100ML (MAG RUN) 1 GM in IV 1 EA IV ONE (20:32)
[2023-06-27] MEDS: POTASSIUM PHOSPHATE INJ 20 MMOL in D5W 250 ML IV ONE (22:06)
[2023-06-28] VITALS (9 sets, daily range): BP systolic 91–134; BP diastolic 44–72; TEMP 97.3–100.2; O2SAT 95–98
[2023-06-28 04:36] LABS: BASO % 0.1 % (0.0-1.0); EOS % 0.5 % (0.0-3.0); HEMATOCRIT 33.9 % (42.0-52.0); LYMPH # 2.1 10^3/uL (1.5-5.0); LYMPH % 27.3 % (24.0-44.0); MEAN CORPUSCULAR HEMOGLOBIN 29.9 pg (27.0-33.0); MEAN CORPUSCULAR HGB CONC 32.4 g/dl (32.0-36.5); MEAN CORPUSCULAR VOLUME 92.1 fl (80.0-96.0); MONO # 0.6 10^3/uL (0.0-0.8); MONO % 7.3 % (2.0-8.0); PLATELET COUNT, AUTOMATED 138 10^3/uL (150-450); RED BLOOD COUNT 3.68 10^6/uL (4.30-6.10); WHITE BLOOD COUNT 7.9 10^3/uL (4.0-10.0)
[2023-06-28 04:59] LABS: BLOOD UREA NITROGEN 27 MG/DL (9-23); CALCIUM LEVEL 7.6 MG/DL (8.3-10.6); CARBON DIOXIDE LEVEL 21 MMOL/L (20-31); CHLORIDE LEVEL 115 MMOL/L (98-107); CREATININE FOR GFR 1.14 MG/DL (0.70-1.30); GLOMERULAR FILTRATION RATE > 60.0 (>35); GLUCOSE, FASTING 219 MG/DL (74-106); POTASSIUM SERUM 4.3 MMOL/L (3.5-5.1); SODIUM LEVEL 142 MMOL/L (136-145)
[2023-06-28 05:48] LABS: PHOSPHORUS LEVEL 3.2 MG/DL (2.4-5.1)
[2023-06-29 03:28] VITALS: BP_SYST 106; BP_SYST 126; BP_DIAS 95; TEMP 97.6; O2SAT 96
[2023-06-29 06:00] LABS: BASO % 0.3 % (0.0-1.0); EOS % 0.3 % (0.0-3.0); HEMATOCRIT 35.6 % (42.0-52.0); HEMOGLOBIN 11.6 g/dl (13.5-17.5); LYMPH # 1.3 10^3/uL (1.5-5.0); LYMPH % 18.2 % (24.0-44.0); MEAN CORPUSCULAR HGB CONC 32.6 g/dl (32.0-36.5); MONO # 0.5 10^3/uL (0.0-0.8); MONO % 7.4 % (2.0-8.0); NEUTROPHILS # 5.2 10^3/uL (1.5-8.5); NEUTROPHILS % 73.1 % (36.0-66.0); PLATELET COUNT, AUTOMATED 145 10^3/uL (150-450); RED BLOOD COUNT 3.87 10^6/uL (4.30-6.10); WHITE BLOOD COUNT 7.2 10^3/uL (4.0-10.0)
[2023-06-29 06:17] LABS: BLOOD UREA NITROGEN 18 MG/DL (9-23); CALCIUM LEVEL 7.4 MG/DL (8.3-10.6); CARBON DIOXIDE LEVEL 19 MMOL/L (20-31); CHLORIDE LEVEL 117 MMOL/L (98-107); CREATININE FOR GFR 1.12 MG/DL (0.70-1.30); GLOMERULAR FILTRATION RATE > 60.0 (>35); GLUCOSE, FASTING 307 MG/DL (74-106); MAGNESIUM LEVEL 1.8 MG/DL (1.8-2.4); POTASSIUM SERUM 4.2 MMOL/L (3.5-5.1); SODIUM LEVEL 144 MMOL/L (136-145)
[2023-06-29 08:06] VITALS: BP 98/55; TEMP 98.2; O2SAT 97
[2023-06-29 12:00] VITALS: BP 140/68; TEMP 97.5; O2SAT 92
[2023-06-29] MEDS: AMOXICILLIN 500 MG CAP PO SCH (12:19)
[2023-06-29 16:25] VITALS: BP 125/59; TEMP 97.7; O2SAT 96
[2023-06-29 19:42] VITALS: BP 108/51; TEMP 98; O2SAT 97
[2023-06-29 21:18] VITALS: BP 119/57; TEMP 97.5; TEMP 98.1; O2SAT 95
[2023-06-29] MEDS: METOPROLOL TART 12.5 MG PER 1/2 TAB PO SCH (22:30)
[2023-06-30 06:30] VITALS: BP 119/58; TEMP 97.5; O2SAT 92
[2023-06-30 06:56] LABS: BASO % 0.2 % (0.0-1.0); EOS # 0.1 10^3/uL (0.0-0.5); HEMATOCRIT 34.8 % (42.0-52.0); HEMOGLOBIN 11.3 g/dl (13.5-17.5); LYMPH # 1.7 10^3/uL (1.5-5.0); LYMPH % 21.2 % (24.0-44.0); MEAN CORPUSCULAR HEMOGLOBIN 29.8 pg (27.0-33.0); MEAN CORPUSCULAR HGB CONC 32.5 g/dl (32.0-36.5); MEAN CORPUSCULAR VOLUME 91.8 fl (80.0-96.0); MONO # 0.8 10^3/uL (0.0-0.8); MONO % 10.3 % (2.0-8.0); NEUTROPHILS # 5.4 10^3/uL (1.5-8.5); NEUTROPHILS % 66.7 % (36.0-66.0); PLATELET COUNT, AUTOMATED 151 10^3/uL (150-450); RED BLOOD COUNT 3.79 10^6/uL (4.30-6.10)
[2023-06-30 07:21] LABS: BLOOD UREA NITROGEN 13 MG/DL (9-23); CALCIUM LEVEL 7.6 MG/DL (8.3-10.6); CARBON DIOXIDE LEVEL 20 MMOL/L (20-31); CHLORIDE LEVEL 115 MMOL/L (98-107); CREATININE FOR GFR 1.02 MG/DL (0.70-1.30); GLOMERULAR FILTRATION RATE > 60.0 (>35); GLUCOSE, FASTING 238 MG/DL (74-106); MAGNESIUM LEVEL 1.7 MG/DL (1.8-2.4); POTASSIUM SERUM 3.4 MMOL/L (3.5-5.1); SODIUM LEVEL 143 MMOL/L (136-145)
[2023-06-30] MEDS: POTASSIUM CHLORIDE 10MEQ SR TABLET PO ONE (08:05)
[2023-06-30] MEDS: LEVEMIR (INSULIN DETEMIR) 1 UNITS/0.01ML SC SCH (08:08)
[2023-06-30] MEDS: MAG SULF 1GM/100ML (MAG RUN) 1 GM in IV 1 EA IV SCH (08:10)
[2023-06-30 14:00] VITALS: BP 123/57; TEMP 98.1; O2SAT 93
[2023-06-30 21:00] VITALS: BP 116/53; TEMP 97.9; O2SAT 98
[2023-07-01 04:42] VITALS: BP 121/58; TEMP 98.2; O2SAT 94
[2023-07-01 05:52] LABS: BASO % 0.4 % (0.0-1.0); EOS # 0.1 10^3/uL (0.0-0.5); EOS % 1.3 % (0.0-3.0); HEMATOCRIT 36.5 % (42.0-52.0); HEMOGLOBIN 11.3 g/dl (13.5-17.5); LYMPH # 1.9 10^3/uL (1.5-5.0); LYMPH % 26.9 % (24.0-44.0); MEAN CORPUSCULAR HEMOGLOBIN 30.1 pg (27.0-33.0); MEAN CORPUSCULAR VOLUME 97.1 fl (80.0-96.0); MONO # 0.8 10^3/uL (0.0-0.8); MONO % 10.9 % (2.0-8.0); NEUTROPHILS # 4.1 10^3/uL (1.5-8.5); NEUTROPHILS % 59.3 % (36.0-66.0); PLATELET COUNT, AUTOMATED 140 10^3/uL (150-450); RED BLOOD COUNT 3.76 10^6/uL (4.30-6.10)
[2023-07-01 06:26] LABS: BLOOD UREA NITROGEN 11 MG/DL (9-23); CALCIUM LEVEL 7.3 MG/DL (8.3-10.6); CARBON DIOXIDE LEVEL 21 MMOL/L (20-31); CHLORIDE LEVEL 114 MMOL/L (98-107); CREATININE FOR GFR 0.95 MG/DL (0.70-1.30); GLOMERULAR FILTRATION RATE > 60.0 (>35); GLUCOSE, FASTING 240 MG/DL (74-106); MAGNESIUM LEVEL 1.8 MG/DL (1.8-2.4); POTASSIUM SERUM 4.1 MMOL/L (3.5-5.1); SODIUM LEVEL 141 MMOL/L (136-145)
[2023-07-01 08:49] VITALS: BP 122/44
[2023-07-01] MEDS: LEVEMIR (INSULIN DETEMIR) 1 UNITS/0.01ML SC SCH (08:50)
[2023-07-01 15:00] VITALS: BP 92/44; TEMP 98.1; O2SAT 91
[2023-07-01 15:23] VITALS: BP 92/44
[2023-07-01] MEDS: NS 500 ML IV ONE (15:27)
[2023-07-01] MEDS: BENZONATATE 100MG CAPSULE PO PRN (15:31)
[2023-07-01 16:37] VITALS: BP 104/48
[2023-07-01 20:27] VITALS: BP 114/50; TEMP 98.6; O2SAT 96
[2023-07-02 06:00] VITALS: BP 100/51; TEMP 98.6; O2SAT 93
[2023-07-02 06:08] LABS: BASO % 0.3 % (0.0-1.0); EOS # 0.1 10^3/uL (0.0-0.5); EOS % 1.8 % (0.0-3.0); HEMOGLOBIN 11.5 g/dl (13.5-17.5); LYMPH # 2.4 10^3/uL (1.5-5.0); LYMPH % 33.5 % (24.0-44.0); MEAN CORPUSCULAR HEMOGLOBIN 30.3 pg (27.0-33.0); MEAN CORPUSCULAR HGB CONC 32.9 g/dl (32.0-36.5); MEAN CORPUSCULAR VOLUME 92.1 fl (80.0-96.0); MONO # 0.8 10^3/uL (0.0-0.8); MONO % 11.5 % (2.0-8.0); NEUTROPHILS # 3.7 10^3/uL (1.5-8.5); NEUTROPHILS % 51.6 % (36.0-66.0); PLATELET COUNT, AUTOMATED 215 10^3/uL (150-450); WHITE BLOOD COUNT 7.2 10^3/uL (4.0-10.0)
[2023-07-02 06:31] LABS: BLOOD UREA NITROGEN 10 MG/DL (9-23); CALCIUM LEVEL 7.6 MG/DL (8.3-10.6); CARBON DIOXIDE LEVEL 24 MMOL/L (20-31); CHLORIDE LEVEL 112 MMOL/L (98-107); CREATININE FOR GFR 0.93 MG/DL (0.70-1.30); GLOMERULAR FILTRATION RATE > 60.0 (>35); GLUCOSE, FASTING 196 MG/DL (74-106); MAGNESIUM LEVEL 1.7 MG/DL (1.8-2.4); POTASSIUM SERUM 4.1 MMOL/L (3.5-5.1); SODIUM LEVEL 141 MMOL/L (136-145)
[2023-07-02 11:14] VITALS: BP 100/50; TEMP 98.4; O2SAT 93
[2023-07-02] MEDS: MAGNESIUM OXIDE 400MG TAB (MAG-OX) PO SCH (12:26)
[2023-07-02 14:00] VITALS: BP 117/56; TEMP 97.7; O2SAT 92
[2023-07-02 21:00] VITALS: BP 113/56; TEMP 98.4; O2SAT 94
[2023-07-03 05:33] VITALS: BP 118/62; TEMP 97.9; O2SAT 93
[2023-07-03 05:50] LABS: BASO % 0.5 % (0.0-1.0); EOS # 0.1 10^3/uL (0.0-0.5); EOS % 1.2 % (0.0-3.0); HEMATOCRIT 35.3 % (42.0-52.0); HEMOGLOBIN 11.5 g/dl (13.5-17.5); LYMPH # 1.9 10^3/uL (1.5-5.0); LYMPH % 33.2 % (24.0-44.0); MEAN CORPUSCULAR HGB CONC 32.6 g/dl (32.0-36.5); MEAN CORPUSCULAR VOLUME 92.2 fl (80.0-96.0); MONO # 0.6 10^3/uL (0.0-0.8); MONO % 10.3 % (2.0-8.0); NEUTROPHILS % 52.4 % (36.0-66.0); PLATELET COUNT, AUTOMATED 239 10^3/uL (150-450); RED BLOOD COUNT 3.83 10^6/uL (4.30-6.10); WHITE BLOOD COUNT 5.7 10^3/uL (4.0-10.0)
[2023-07-03 06:21] LABS: BLOOD UREA NITROGEN 12 MG/DL (9-23); CALCIUM LEVEL 7.6 MG/DL (8.3-10.6); CARBON DIOXIDE LEVEL 26 MMOL/L (20-31); CHLORIDE LEVEL 109 MMOL/L (98-107); CREATININE FOR GFR 0.95 MG/DL (0.70-1.30); GLOMERULAR FILTRATION RATE > 60.0 (>35); GLUCOSE, FASTING 347 MG/DL (74-106); MAGNESIUM LEVEL 1.8 MG/DL (1.8-2.4); POTASSIUM SERUM 4.5 MMOL/L (3.5-5.1); SODIUM LEVEL 139 MMOL/L (136-145)
[2023-07-03 14:00] VITALS: BP 119/48; TEMP 97.9; O2SAT 95
[2023-07-03] MEDS ORDERED: INSULADS INJ (14:57)
[2023-07-03 20:15] VITALS: BP 102/42; TEMP 97.9; O2SAT 93
[2023-07-03] MEDS: LEVEMIR (INSULIN DETEMIR) 1 UNITS/0.01ML SC SCH (20:34)
[2023-07-04 05:30] VITALS: BP 108/40; TEMP 97.9; O2SAT 91
[2023-07-04 14:00] VITALS: BP 130/60; TEMP 97.7; O2SAT 93
[2023-07-04 20:20] VITALS: BP 104/42; TEMP 97.9; O2SAT 94
[2023-07-04] MEDS: LEVEMIR (INSULIN DETEMIR) 1 UNITS/0.01ML SC SCH (21:00)
[2023-07-05 05:00] VITALS: BP 112/50; TEMP 97.9; O2SAT 94
[2023-07-05] MEDS ORDERED: AMOX500C PO (12:03)
[2023-07-05] MEDS ORDERED: INSULADS INJ (12:03)
[2023-07-05] MEDS ORDERED: LANC30MI XX (12:06)
[2023-07-05] MEDS ORDERED: INSU1MIS20 SC (12:06)
[2023-07-05] MEDS ORDERED: GLUC1TES2 XX (12:06)
[2023-07-05] MEDS ORDERED: BLOOKIT21 XX (12:06)
[2023-07-05] MEDS ORDERED: BASA100I SC (12:18)
[2023-07-05] MEDS ORDERED: PEN-308 SC (12:18)
== END 2023-07-05 15:42 | disposition home or self-care (01) | DRG 871 ==
LOC: M ED 15:31 → EDBD 15:31 → M ED INP 18:15 → M ICU 19:56 → M PCU 06-28 06:31 → M MSPAV 06-29 21:18
PROVIDERS: ADMIT Internal Medicine Pulmonary Disease; ATTEND Internal Medicine
DX: A41.9 Sepsis, unspecified organism (principal); E11.10 Type 2 diabetes mellitus with ketoacidosis without coma; G93.41 Metabolic encephalopathy; R57.1 Hypovolemic shock; R65.21 Severe sepsis with septic shock; N17.9 Acute kidney failure, unspecified; M62.82 Rhabdomyolysis; E87.0 Hyperosmolality and hypernatremia; I50.32 Chronic diastolic (congestive) heart failure; N39.0 Urinary tract infection, site not specified; B97.4 Respiratory syncytial virus as the cause of diseases classified elsewhere; E11.22 Type 2 diabetes mellitus with diabetic chronic kidney disease; Z11.52 Encounter for screening for COVID-19; R68.0 Hypothermia, not associated with low environmental temperature; N18.30 Chronic kidney disease, stage 3 unspecified; D64.9 Anemia, unspecified; E11.65 Type 2 diabetes mellitus with hyperglycemia; E78.5 Hyperlipidemia, unspecified; Z90.49 Acquired absence of other specified parts of digestive tract; Z98.41 Cataract extraction status, right eye; Z98.42 Cataract extraction status, left eye; Z85.51 Personal history of malignant neoplasm of bladder; Z79.82 Long term (current) use of aspirin; Z79.4 Long term (current) use of insulin; Z88.2 Allergy status to sulfonamides

== ENCOUNTER → 2023-07-18 | Outpatient (CLI) | payer MEDICARE ==
[~2023-07-18] MED LIST changes: +AMOX500C PO; +ATOR1TAB21 PO; +BASA100I SC; +BLOOKIT21 XX; +DOXY-443 PO; +GLUC1TES2 XX; +INSU1MIS20 SC; +INSULADS INJ; +LANC30MI XX; +PEN-308 SC; +VICT18IN SC
[2023-07-18 14:35] LABS: BASO % 0.6 % (0.0-1.0); EOS # 0.1 10^3/uL (0.0-0.5); EOS % 1.4 % (0.0-3.0); HEMATOCRIT 39.6 % (42.0-52.0); HEMOGLOBIN 12.5 g/dl (13.5-17.5); LYMPH # 2.8 10^3/uL (1.5-5.0); LYMPH % 38.2 % (24.0-44.0); MEAN CORPUSCULAR HGB CONC 31.6 g/dl (32.0-36.5); MONO # 0.6 10^3/uL (0.0-0.8); MONO % 8.3 % (2.0-8.0); NEUTROPHILS # 3.7 10^3/uL (1.5-8.5); NEUTROPHILS % 50.8 % (36.0-66.0); PLATELET COUNT, AUTOMATED 320 10^3/uL (150-450); RED BLOOD COUNT 4.17 10^6/uL (4.30-6.10); WHITE BLOOD COUNT 7.3 10^3/uL (4.0-10.0)
[2023-07-18 15:06] LABS: ALBUMIN 2.9 G/DL (3.2-5.2); ALKALINE PHOSPHATASE 118 U/L (46-116); ALT/SGPT 20 U/L (7.0-40); AST/SGOT 12 U/L (<34); BILIRUBIN,TOTAL 0.5 MG/DL (0.3-1.2); BLOOD UREA NITROGEN 13 MG/DL (9-23); CALCIUM LEVEL 8.6 MG/DL (8.3-10.6); CARBON DIOXIDE LEVEL 27 MMOL/L (20-31); CHLORIDE LEVEL 108 MMOL/L (98-107); CHOLESTEROL LEVEL 129 MG/DL (<200); CHOLESTEROL RISK RATIO 4.13 (<5); CREATININE FOR GFR 1.02 MG/DL (0.70-1.30); GLOMERULAR FILTRATION RATE > 60.0 (>35); GLUCOSE, FASTING 161 MG/DL (74-106); HDL CHOLESTEROL 31.2 MG/DL (>40); LDL CHOLESTEROL 73.4 MG/DL (<100); NON-HDL-C 97.8 MG/DL; POTASSIUM SERUM 4.1 MMOL/L (3.5-5.1); SODIUM LEVEL 141 MMOL/L (136-145); TOTAL PROTEIN 5.8 G/DL (5.7-8.2); TRIGLYCERIDES LEVEL 122 MG/DL (<150)
[2023-07-18 15:11] LABS: FERRITIN 239.7 NG/ML (10.5-307.3)
[2023-07-18 15:12] LABS: PTH INTACT 60.6 PG/ML (18.5-88.0); THYROID STIMULATING HORMONE 5.053 uIU/ML (0.55-4.78)
[2023-07-18 15:14] LABS: TOTAL 25(OH) VITAMIN D 49.9 NG/ML (20.0-100.0)
[2023-07-21 20:07] LABS: C-PEPTIDE 1.1 ng/mL (1.1-4.4); SOLUBLE TRANSFERRIN RECEPTOR 19.3 nmol/L (12.2-27.3)
== END ==
LOC: M PLALAB 10:42
PROVIDERS: ATTEND Family Medicine
DX: N18.31 Chronic kidney disease, stage 3a (principal); D63.8 Anemia in other chronic diseases classified elsewhere; Z79.899 Other long term (current) drug therapy

== ENCOUNTER → 2023-07-19 | Outpatient (REF) | payer MEDICARE | LOC: M SFHCPLAZ 14:17 | PROVIDERS: ATTEND Family Medicine | DX: N18.31 Chronic kidney disease, stage 3a (principal); D63.8 Anemia in other chronic diseases classified elsewhere; E78.5 Hyperlipidemia, unspecified; E11.65 Type 2 diabetes mellitus with hyperglycemia ==

== ENCOUNTER → 2023-07-23 | Outpatient (REF) | payer MEDICARE | LOC: M SFHCPLAZ 14:34 | PROVIDERS: ATTEND Family Medicine | DX: N18.31 Chronic kidney disease, stage 3a (principal); D63.8 Anemia in other chronic diseases classified elsewhere; E78.5 Hyperlipidemia, unspecified; E11.65 Type 2 diabetes mellitus with hyperglycemia ==

== ENCOUNTER 2023-08-07 10:54 | Emergency (ER) | payer MEDICARE ==
[~2023-08-07] VITALS: Ht 182.9 cm; Wt 88.4 kg
[2023-08-07] MEDS: LIDOCAINE 2% MDV 20ML VIAL SC ONE (12:15)
[2023-08-07] MEDS ORDERED: CEPH500C PO (12:55)
[2023-08-07 13:09] VITALS: O2SAT 96
[2023-08-07] MEDS: CEPHALEXIN 500 MG CAP PO ONE (13:10)
[2023-08-07 13:13] VITALS: BP 112/54; TEMP 98.4
== END 2023-08-07 13:21 | disposition home or self-care (01) ==
LOC: EDBD 10:54 → M ED 11:20
DX: S80.811A Abrasion, right lower leg, initial encounter (principal); S80.812A Abrasion, left lower leg, initial encounter; S61.213A Laceration without foreign body of left middle finger without damage to nail, initial encounter; W10.9XXA Fall (on) (from) unspecified stairs and steps, initial encounter; Y92.9 Unspecified place or not applicable; Y93.9 Activity, unspecified; Y99.0 Civilian activity done for income or pay; E11.9 Type 2 diabetes mellitus without complications; Z79.82 Long term (current) use of aspirin; Z79.4 Long term (current) use of insulin; Z79.899 Other long term (current) drug therapy

== ENCOUNTER → 2023-08-09 | Outpatient (CLI) | payer MEDICARE ==
[~2023-08-09] MED LIST changes: +CEPH500C PO
== END ==
LOC: M SOG 14:13
PROVIDERS: ATTEND Physician Assistant
DX: M79.645 Pain in left finger(s) (principal)

== ENCOUNTER → 2023-09-09 | Outpatient (REF) | payer MEDICARE ==
[~2023-09-09] MED LIST changes: +DOXY-323 PO; -DOXY-443 PO
== END ==
LOC: M SMT 12:35
PROVIDERS: ATTEND Urology
DX: Z85.51 Personal history of malignant neoplasm of bladder (principal)

== ENCOUNTER → 2024-07-08 | Outpatient (CLI) | payer MEDICARE ==
[~2024-07-08] MED LIST changes: -DOXY-323 PO; +DOXY-441 PO; +GLIP10TA15 PO; -GLIP10TA6 PO
[2024-07-08 19:05] LABS: ALBUMIN 3.7 G/DL (3.2-5.2); ALKALINE PHOSPHATASE 129 U/L (40-129); ALT/SGPT 16 U/L (7.0-40); AST/SGOT 9 U/L (<34); BILIRUBIN,TOTAL 0.5 MG/DL (0.3-1.2); BLOOD UREA NITROGEN 18 MG/DL (9-23); CALCIUM LEVEL 8.8 MG/DL (8.3-10.6); CARBON DIOXIDE LEVEL 26 MMOL/L (20-31); CHLORIDE LEVEL 107 MMOL/L (98-107); CHOLESTEROL LEVEL 116 MG/DL (<200); CHOLESTEROL RISK RATIO 3.82 (<5); CREATININE FOR GFR 1.16 MG/DL (0.70-1.30); GLOMERULAR FILTRATION RATE > 60.0 (>35); GLUCOSE, FASTING 228 MG/DL (74-106); HDL CHOLESTEROL 30.3 MG/DL (>40); LDL CHOLESTEROL 50.9 MG/DL (<100); NON-HDL-C 85.7 MG/DL; POTASSIUM SERUM 4.8 MMOL/L (3.5-5.1); SODIUM LEVEL 143 MMOL/L (136-145); TOTAL PROTEIN 6.9 G/DL (5.7-8.2); TRIGLYCERIDES LEVEL 174 MG/DL (<150)
[2024-07-08 19:14] LABS: HEMOGLOBIN A1c 8.6 % (4.0-6.0)
== END ==
LOC: M PLALAB 16:19
PROVIDERS: ATTEND Family Medicine
DX: E11.65 Type 2 diabetes mellitus with hyperglycemia (principal)